=== PATIENT | female | born 1980 | race Two or more races ===

== ENCOUNTER 2022-07-21 15:03 | Outpatient (REF) | payer OTHER, SELFPAY ==
[2022-07-21 17:14] LABS: Free T4 (Free Thyroxine) 0.88 ng/dL (0.71-1.85); Thyroid Stimulating Hormone 1.28 uIU/mL (0.32-4.0)
[2022-07-23 09:43] LABS: Thyroid Peroxidase Antibodies 177 IU/mL (<9)
== END 2022-07-21 15:04 | disposition home or self-care (01) ==
LOC: HO.LAB 15:03
PROVIDERS: PCP Nurse Practitioner Family; Visit Provider Internal Medicine Endocrinology, Diabetes & Metabolism
DX: E03.9 Hypothyroidism, unspecified (principal)
CPT/HCPCS: 36415; 84439; 84443; 86376; 99202

== ENCOUNTER 2024-05-22 13:47 | Inpatient (IN) | payer OTHER, SELFPAY ==
[2024-05-22] VITALS (8 sets, daily range): BP systolic 85–106; BP diastolic 53–67; PULSE 74–87; RESP 13–20; TEMP 36.8; O2SAT 96–98; BMI 33.6
--- NOTE | ~2024-05-22 | CT_ITS ---
EXAMINATION: CT ABDOMEN AND PELVIS WITHOUT CONTRAST CLINICAL INFORMATION: Probable Acute cholecystitis. Metastatic breast cancer. COMPARISON: No prior CT. Correlated to limited ultrasound abdomen dated May 22, 2024. TECHNIQUE: Multidetector volumetric imaging was performed from the superior aspect of the liver through the pubic symphysis. Sagittal and coronal reformatted images were obtained on the technologist's workstation. This CT examination was performed using dose optimization techniques as appropriate, variously including the following: *Automated exposure control *Adjustment of mA and/or kV according to patient size (this includes techniques or standardized protocols for targeted exams where dose is matched to indication/reason for exam; i.e. extremities or head) *Use of iterative reconstruction technique DLP: 844 mGy centimeter. FINDINGS: Inadequate evaluation of the intra-abdominal organs and vascular structures due to lack of IV contrast. LUNG BASES: Multifocal patchy and confluent pulmonary groundglass, lobes, lingula and right middle lobe. Right-sided physician, small to moderate volume. Left-sided pleural effusion, small amount. There is a central venous catheter in the right atrium. LIVER, GALLBLADDER, AND BILIARY TREE: Liver measures 21 cm. Heterogeneous attenuation of the parenchyma. The gallbladder is packed with gallstones. There is 9 mm edematous gallbladder wall. The common bile duct measures 4 mm. PANCREAS: No peripancreatic fluid collection. No main pancreatic ductal dilatation. SPLEEN: 12 cm. ADRENAL GLANDS: No nodular lesions. KIDNEYS AND URETERS: No hydronephrosis. No gross nephrolithiasis. Probable residual contrast within the urinary collecting system. BLADDER: Residual contrast. GASTROINTESTINAL TRACT: Gas and fluid-filled small and large intestine. Segmental narrowing at the rectosigmoid colon, probable peristalsis. Mesenteric and pericolonic edema pattern. No intestinal obstruction pattern. No gross fluid collections, peritoneal cavity. No gross ascites. No pneumoperitoneum. No pneumatosis intestinalis. I do not see the appendix. ABDOMINAL WALL: Diastases abdominal rectus muscles. LYMPH NODES: Nonspecific prominent mesenteric and retroperitoneal lymph nodes. VASCULAR: Calcified plaques distal abdominal aorta wall and the iliac arteries without gross aneurysm. PELVIC VISCERA: Not evaluated. OSSEOUS STRUCTURES: No gross lytic or blastic lesions. No acute fracture or gross listhesis. Multilevel thoracolumbar spondylosis more conspicuous at L4-5 and L5-S1. CT/CT abdomen pelvis wo IV con IMPRESSION: Concerning multifocal pneumonia with a small volume pleural effusions. Edematous gallbladder wall with cholelithiasis. Acute cholecystitis versus hepatitis versus prolonged fasting should be included in differential diagnosis. Hepatosplenomegaly. Fleischner guidelines were followed. Electronically signed by: Mikhail Ramirez MD 05/23/2024 12:01 PM EST
--- NOTE | ~2024-05-22 | CT_ITS ---
CLINICAL HISTORY: Right anterior lateral chest pain, history of CA CT angiography chest with contrast. 3D Postprocessing. Comparison: None Findings: The heart size is normal. RV/LV ratio is normal. The thoracic aorta is normal caliber. No dissection. No acute pulmonary embolus. Multiple small and likely reactive mediastinal and bilateral hilar lymph nodes. Right renée catheter tip is in the SVC. The visualized thyroid gland appears small. There are bilateral mastectomy changes. There are postsurgical changes in the right retropectoral and axillary regions. There are consolidative changes with air bronchograms in the right upper lobe. There are patchy consolidative changes in the right middle and bilateral lower lobes. No pleural effusion or pneumothorax. Hepatic steatosis. Probable hepatosplenomegaly. Cholelithiasis. The bones are intact. IMPRESSION: 1. No pulmonary embolus. 2. Multifocal bilateral pneumonia, right greater than left. 3. Mediastinal and hilar adenopathy. 4. Cholelithiasis. 5. Additional findings as above. This document has been electronically signed by: Yasmine Marques DO on 05/22/2024 18:41:54
--- NOTE | ~2024-05-22 | US_ITS ---
CLINICAL HISTORY: RUQ pain, TTP, nausea US abdomen limited Comparison: None Findings: The visualized pancreas is normal. Unremarkable visualized IVC. Liver length 16.5 cm. Echogenic liver parenchyma. There is no intrahepatic bile duct dilatation. Common bile duct diameter 7 mm The gallbladder is filled with gallstones. The gallbladder wall is thickened and measures up to 8 mm in thickness. The sonographic Rosenberg's sign was negative. The main portal vein is antegrade. The right kidney is 11.2 cm in length. No ascites. IMPRESSION: 1. Cholelithiasis with marked thickening of the gallbladder wall suggesting possible acute cholecystitis. 2. Fatty infiltration of the liver. 3. Mildly dilated common bile duct. This document has been electronically signed by: Li Finley MD on 05/22/2024 20:23:08
--- NOTE | 2024-05-22 13:53 | ECG_ITS ---
Test Reason : chest pain Blood Pressure : */* mmHG Vent. Rate : 87 BPM Atrial Rate : 87 BPM P-R Int : 166 ms QRS Dur : 90 ms QT Int : 310 ms P-R-T Axes : 22 23 27 degrees QTcB Int : 373 ms Normal sinus rhythm Nonspecific T wave abnormality Abnormal ECG No previous ECGs available Referred By: Generic ED Physician Electronically Signed By: JESUS KESSLER
--- NOTE | 2024-05-22 15:18 | ED_ITS ---
HPI - Chest Pain General Chief Complaint: Chest Pain Stated Complaint: Chest Pain, Abd Pain Time Seen by Provider: 05/22/24 16:03 Source: patient Mode of arrival: ambulatory Limitations: no limitations and language barrier (Slovenian-speaking transition assistant utilized) History of Present Illness ED Provider: Hortencia Mccarty NP HPI narrative: Patient is a 44 year old female with past medical history of breast cancer s/p bilateral mastectomy in October of 2021 and radiation, currently on chemotherapy following with [facility] Oncology Dr. Rodney with metastasis to the lung, spleen, and abdominal lymph nodes, hypothyroidism, GERD who presents emergency department for evaluation. She endorses a multitude of symptoms over the past 2 days which by her account are consistent with when her magnesium and potassium are low secondary to her chemotherapy. She endorses having pain diffusely throughout her abdomen, right lateral chest, right anterior chest, diarrhea, intermittent dizziness, nausea, dizziness, and fatigue. She again states that all of the symptoms happen when these electrolytes are low. Although she does note that the pain in her abdomen is notably worse in the right upper quadrant at this current moment but in general has been constant over the past month. She reports her most recent testing through oncology was an echocardiogram 05/15/2024. She denies diaphoresis, vomiting, shortness of breath, dyspnea on exertion, history of VTE, lower extremity swelling, headache, neck pain, vision changes Related Data Home Medications ?Medication ?Instructions ?Recorded ?Confirmed amitriptyline 25 mg tablet 25 mg PO 07/15/22 famotidine 20 mg tablet 20 mg PO BID 07/15/22 pregabalin 25 mg capsule 25 mg PO DAILY 07/15/22 cetirizine 10 mg tablet 10 mg PO DAILY 07/21/22 ibuprofen 600 mg tablet 600 mg PO Q8H 07/21/22 oxycodone 30 mg tablet,crush 60 mg PO Q8H 05/22/24 05/22/24 resistant,extended release 12 hr (OxyContin) oxycodone-acetaminophen 7.5 mg-325 2 tab PO Q4H PRN pain 05/22/24 05/22/24 mg tablet Allergies Allergy/AdvReac Type Severity Reaction Status Date / Time No Known Allergies Allergy Verified 05/22/24 15:13 Review of Systems 2 Review of Systems: Yes all other systems are reviewed and are negative PMFSH Past Medical History Attestation statement: The following information was validated with the patient. Source: old records reviewed Medical History Obstructive sleep apnea Metastatic malignant neoplasm to breast Hypothyroidism Surgical History Hx of bilateral mastectomy Hx of appendectomy Hx of hernia repair Family History Family History Mother Diabetes Hypertension Father Cancer Social History Social History Household Members: Family Alcohol intake: former Patient Tobacco Use Status: Former Tobacco user Smoked in Last 30 Days: No Use of substances other than those prescribed or required for medical reasons: No Advance Directives: No Advance Directives Information Provided: No Do you have a plan to hurt others: No Plan Physical Exam 2 Vital Signs: Vital Signs: Last Vital Signs Temp 98.2 F 05/22/24 21:01 Pulse 80 05/22/24 23:01 Resp 13 05/22/24 22:28 BP 96/61 05/22/24 23:01 Pulse Ox 98 05/22/24 22:28 O2 Del Method Room Air 05/22/24 22:28 BMI result Body Mass Index 33.6 Appearance: Alert.?Oriented to person, place and time. No acute distress.?Normal affect. Eyes: Pupils equal, round and reactive to light.? ENT: Pharynx normal.?? Neck: Normal inspection.? Neck supple.??No JVD. CVS: Heart sounds normal. Normal heart rate and rhythm.? Pulses normal.?? Respiratory: No respiratory distress.? Lung sounds clear to auscultation bilaterally?? Abdomen: Soft with diffuse tenderness throughout, notably tender in the right upper quadrant, positive murphys sign. Normoactive bowel sounds. No pulsatile mass.?? Skin: Skin warm and dry.? Normal skin color.? ?? Extremities: No lower extremity edema.? No calf ttp? Neuro: Moves all extremities spontaneously. Sensation intact bilaterally. CN II- XII intact. No focal neuro deficits. Ambulates with normal steady gait. Course Course Course Narrative: This is an RME: Additional HPI, ROS, PE not included below will be deferred to primary provider. RME assessment and note performed by: Hien Leo PA-C This is a 44-year-old female who presents emergency department with complaints of chest pain, lower abdominal pain since 02:30 this morning, also reporting dizziness and lightheadedness. Patient has a history of breast cancer with Mets to the lungs, stomach, reports low potassium. Blood pressure low at 97/65. Plan: Labs, EKG Reevaluation(s) Reevaluation #1: CT of the chest reveals no evidence of pulmonary embolism, has multifocal bilateral pneumonia right greater left with adenopathy in addition to cholelithiasis, will obtain ultrasound to evaluate for cholecystitis. Patient will receive Rocephin IV, obtaining blood cultures and lactic acid, her blood pressures are soft currently 96/59 with map of 71, no tachycardia, afebrile, no tachypnea or hypoxia. Pancytopenia with no baseline for comparison, WBC 4000, meets SIRS criteria but at this time without evidence of organ dysfunction to suggest severe sepsis. IV fluids ordered based on ideal body weight do to obesity Time: 19:08 Reevaluation #2: Abdominal ultrasound revealing findings consistent with acute cholecystitis, at this time I have noted most recent blood pressure of 85/57 on evaluation patient did have a large blood pressure cuff though placed on the arm, when repositioned with the appropriate sized cuff BP is 91/59. On review of previous records she does appear to have a generally low blood pressure. Will give an additional L of fluids, if persistently hypotensive will consider pressors. Anticipate admission for multifocal bilateral pneumonia and acute cholecystitis. Time: 22:09 Medications Administered Generic Name Dose Route Start Last Admin Trade Name Freq PRN Reason Stop Dose Admin Piperacillin Sod/Tazobactam 100 mls @ 200 mls/hr 05/22/24 22:15 05/22/24 23:25 Sod 4.5 gm/ Sodium Chloride IV Infused Q6H LENY Infusion Sodium Chloride 3 ml 05/23/24 00:00 05/23/24 00:36 0.9 % Sodium Chloride Flush 3 Ml Syringe IVFLUSH Not Given QSHIFT LENY Discontinued Medications Generic Name Dose Route Start Last Admin Trade Name Freq PRN Reason Stop Dose Admin Ceftriaxone Sodium 2 gm 05/22/24 19:02 05/22/24 19:41 Ceftriaxone Sodium 2 Gm Vial IVPUSH 05/22/24 19:03 2 gm ONCE ONE Administration Sodium Chloride 1,710 mls @ 1,710 mls/hr 05/22/24 19:02 05/22/24 22:25 Ns IV 05/22/24 20:01 Infused .Q1H STA Infusion Sodium Chloride 1,000 mls @ 999 mls/hr 05/22/24 22:15 05/23/24 00:36 Ns IV 05/22/24 23:15 Infused .Q1H1M LENY Infusion Iohexol 100 ml 05/22/24 17:59 05/22/24 18:02 Iohexol 350 Mg/Ml 100 Ml Infus..Btl IV 05/22/24 18:00 65 ml ONCE ONE Administration Oxycodone HCl 30 mg 05/22/24 20:13 05/22/24 20:51 Oxycodone Hcl Er 10 Mg Tab.Er.12h PO 05/22/24 20:14 30 mg ONCE ONE Administration Oxycodone HCl 7.5 mg 05/22/24 20:13 05/22/24 20:51 Oxycodone Hcl Immed Release 5 Mg Tablet PO 05/22/24 20:14 7.5 mg ONCE ONE Administration Medical Decision Making Medical Decision Making MDM Narrative: Patient is a 44 year old female with past medical history of breast cancer s/p bilateral mastectomy in October of 2021 and radiation, currently on chemotherapy following with [facility] Oncology Dr. Rodney with metastasis to the lung, spleen, and abdominal lymph nodes, hypothyroidism, GERD who presents emergency department for evaluation of chest and abdominal pain constant over the past month though she does admit that they right upper quadrant is worse over the past 2 days, diarrhea, dizziness, nausea, fatigue which by her account was consistent with low magnesium and low potassium which she has been advised to secondary to her chemotherapy. She denies otherwise having any new symptoms. EKG obtained prior to my assumption of care revealing a normal sinus rhythm with ventricular rate of 87, QTC 373, no ST elevation, no ST depression. No evidence of volume overload or shock on exam. No recent trauma or injury, no tracheal deviation, unlikely tension pneumothorax. No recent URI symptoms to suggest viral illness, pneumonia, costochondritis. She does have right upper quadrant tenderness and positive Rosenberg sign, concerning for possibly acute cholecystitis, choledocholithiasis, no fever or jaundice to suggest acute cholangitis, may possibly be biliary colic secondary to cholelithiasis. Denies excessive alcohol consumption, history of diabetes, lower suspicion acute pancreatitis. Will obtain CBC to evaluate for leukocytosis/ anemia, CMP and lipase to evaluate for abnormal electrolytes /abnormal renal function/ abnormal hepatic/biliary function, EKG and troponin to evaluate for ischemia/ACS. Obtaining CT angio of the chest to exclude pulmonary embolism. Differential Diagnosis Differential Diagnoses: The differential diagnosis associated with the presentation includes (See narrative above) Admission/Observation Consideration of admission/observation: Escalation of care including admission/observation considered (See narrative above and course narrative for further detail) Lab Data MDM Lab Attestation statement: I reviewed the patient's lab results. 05/22/24 16:21 05/22/24 16:21 Labs: Lab Results 05/22/24 05/22/24 Range/Units 16:21 19:28 WBC 4.0 L (4.8-10.8) X10*3/uL RBC 2.92 L (4.20-5.50) X10*6/uL Hgb 10.5 L (12.0-16.0) g/dl Hct 28.9 L (37.0-47.0) % MCV 99.0 H (80.0-98.0) fL MCH 36.0 H (27.0-33.0) pg MCHC 36.3 H (31.0-35.0) g/dl RDW 15.8 (11.0-16.0) % Plt Count 117 L (160-400) X10*3/uL MPV 10.6 (9.4-12.3) fL Immature Gran % (Auto) 0.3 (0.0-0.4) % Neut % (Auto) 64.7 (45-73) % Lymph % (Auto) 21.4 (20-40) % Gilliam % (Auto) 9.6 (2-11) % Eos % (Auto) 3.0 (0-4) % Baso % (Auto) 1.0 (0-2) % Lymph # (Auto) 0.9 L (1.2-4.9) X10*3/uL Gilliam # (Auto) 0.4 (0.1-1.2) X10*3/uL Eos # (Auto) 0.1 (0.0-0.4) X10*3/uL Baso # (Auto) 0.0 (0.0-0.2) X10*3/uL Abs Immat Gran (auto) 0.01 (0.00-0.03) X10*3/uL Absolute Neuts (auto) 2.6 (2.0-8.3) x10*3/uL Absolute Nucleated RBC 0.020 H (0.0-0.012) X10*3/uL Nucleated RBC % (auto) 0.5 H (0.0-0.2) /100WBC PT 11.7 (10.9-12.4) SEC INR 1.0 (0.9-1.1) Sodium 136 (135-145) mmol/L Potassium 3.3 (3.3-5.1) mmol/L Chloride 105 (96-108) mmol/L Carbon Dioxide 22 (22-29) mmol/L Anion Gap 12 (12-20) BUN 10 (9-16) mg/dL Creatinine 0.74 (0.5-1.4) mg/dL Estim Creat Clear Calc 108.4 Estimated GFR > 60 Random Glucose 101 (60-115) mg/dL Lactic Acid 1.1 (0.5-2.0) mmol/L Calcium 8.8 (8.4-10.2) mg/dL Magnesium 1.7 (1.6-2.6) mg/dL Total Bilirubin 0.5 (0.0-1.0) mg/dL Direct Bilirubin 0.2 (0.0-0.5) mg/dL AST 43 H (5-31) U/L ALT 23 (0-31) U/L Alkaline Phosphatase 105 (39-117) U/L Troponin I High Sens < 2.7 (<3.5-17.0) ng/L Total Protein 7.8 (6.5-8.0) g/dL Albumin 3.7 (3.5-5.0) g/dL Lipase 31 (8-78) U/L Influenza Type A (PCR) NEGATIVE (Negative) Influenza Type B (PCR) NEGATIVE (Negative) RSV RNA Qual (PCR) NEGATIVE (Negative) SARS-CoV-2 RNA (RT-PCR) NEGATIVE (Negative) Independent Interpretation I performed an independent interpretation of an: EKG (See narrative above) Radiology Impression Discussion of test interpretation with radiology: I have reviewed the radiologist's reading. Radiologist Impression: CT angiography chest with contrast. 3D Postprocessing. Comparison: None Findings: The heart size is normal. RV/LV ratio is normal. The thoracic aorta is normal caliber. No dissection. No acute pulmonary embolus. Multiple small and likely reactive mediastinal and bilateral hilar lymph nodes. Right renée catheter tip is in the SVC. The visualized thyroid gland appears small. There are bilateral mastectomy changes. There are postsurgical changes in the right retropectoral and axillary regions. There are consolidative changes with air bronchograms in the right upper lobe. There are patchy consolidative changes in the right middle and bilateral lower lobes. No pleural effusion or pneumothorax. Hepatic steatosis. Probable hepatosplenomegaly. Cholelithiasis. The bones are intact. IMPRESSION: 1. No pulmonary embolus. 2. Multifocal bilateral pneumonia, right greater than left. 3. Mediastinal and hilar adenopathy. 4. Cholelithiasis. 5. Additional findings as above. Independent Historian Clinical information obtained from an independent historian. History obtained from or confirmed by: Spouse Discharge Plan Discharge Clinical Impression: Acute calculous cholecystitis, Multifocal pneumonia, Metastatic malignant neoplasm to breast Patient Disposition: Admitted As Inpatient
[2024-05-22 16:27] LABS: MANUAL DIFF FLAG NO
[2024-05-22 16:34] LABS: Eosinophils Absolute Auto 0.1 X10*3/uL (0.0-0.4); Hematocrit 28.9 % (37.0-47.0); Hemoglobin 10.5 g/dl (12.0-16.0); Imm Gran Abs Auto 0.01 X10*3/uL (0.00-0.03); Imm Gran Pct Auto 0.3 % (0.0-0.4); Lymphocytes Absolute Auto 0.9 X10*3/uL (1.2-4.9); Lymphocytes Percent Auto 21.4 % (20-40); Mean Corpuscular HGB Conc 36.3 g/dl (31.0-35.0); Mean Platelet Volume 10.6 fL (9.4-12.3); Monocytes Absolute Auto 0.4 X10*3/uL (0.1-1.2); Monocytes Percent Auto 9.6 % (2-11); NRBC Pct Auto 0.5 /100WBC (0.0-0.2); Neutrophils Absolute Auto 2.6 x10*3/uL (2.0-8.3); Neutrophils Percent Auto 64.7 % (45-73); Platelet Count 117 X10*3/uL (160-400); Red Blood Count 2.92 X10*6/uL (4.20-5.50); Red Cell Distribution Width 15.8 % (11.0-16.0)
[2024-05-22 16:40] LABS: Prothrombin Time 11.7 SEC (10.9-12.4)
--- OUTSIDE RECORDS SUMMARY | 2024-05-22 16:45 | XMS_ITS | Clinical Summary ---
Author Organization [employer] Address [address] [facility] [address] [place] [address] Care Team Providers Care Broadcast Journalist Name Role Phone Unavailable Primary Care Provider Unavailabl e Encounters Date Type Department Care Team Description 05/09/2024 Telephone [facility] [address] [place] [address] Jyoti Rojas DDS apppraneeth cancer patient from Last 3 Months Social History Tobacco Use Types Packs/Day Years Used Date Smoking Tobacco: Never Assessed Comments Unknown Sex and Gender Information Value Date Recorded Sex Assigned at Female 02/01/2022 10:28 AM EDT Legal Sex Female 10:28 AM EDT Gender Identity Not on file Sexual Orientation Not on file Plan of Treatment Health Maintenance Due Date Last Done Comments Depression Screening 1980 Alcohol/Substance Use Screening 1992 Tobacco Screening 1992 Family Planning (PISQ) 02/03/1995 DTaP/Tdap/Td Vaccines (1 - Tdap) 02/03/1999 Hepatitis B Vaccines (1 of 3 - 19+ 3-dose series) 02/03/1999 Pap Smear 02/03/2001 Cervical Cancer Screening 02/03/2010 HPV/Cotest 02/03/2010 Mammogram 2020 COVID-19 Vaccine (1 - 2023-2 5 season) 2023 Influenza Vaccine (#1) 2023 Zoster Vaccines (1 of 2) 02/03/2030 RSV Patients and Pa tients Aged 60 years or older (1 - 1-dose 75+ series) 02/03/2055 HIB Vaccines Aged Out No longer eligi ble based on patient's age to complete this topic HPV Vaccines Aged Out No longer eligi ble based on patient's age to complete this topic Hepatitis A Vaccines Aged Out No long er eligible based on patient's age to complete this topic IPV Vaccines Aged Out No longer eligi ble based on patient's age to complete this topic Meningococcal Vaccine Aged Out No tone jodi eligible based on patient's age to complete this topic Pneumococcal Vaccine: Pediat rics (0 to 5 Years) and At-Risk Patients (6 to 49) Years) Aged Out No longer eligible b ased on patient's age to complete this topic RSV under 20 months Aged Out No longe r eligible based on patient's age to complete this topic Rotavirus Vaccines Aged Out No longer eligible based on patient's age to complete this topic
--- OUTSIDE RECORDS SUMMARY | 2024-05-22 16:45 | XMS_ITS | Clinical Summary ---
Author Organization [facility], Address [address] [place] [address] Phone Care Team Providers Care Fill Plant Operator Name Role Phone Theron Richard DEVELOPMENT TEAM LEAD Primary Care Provider [phone] Allergies No known active allergies Medications acetaminophen (TYLENOL) 500 MG tablet Take by mouth every 6 (six) hours if needed for mild pain Active famotidine (PEPCID) 20 MG tablet Take 20 mg by mouth in the morning and 20 mg in the evening. Active fexofenadine (KAHLIL) 60 MG tablet Take 60 mg by mouth 1 (one) time each day Active gabapentin (NEURONTIN) 300 MG capsule Take 300 mg by mouth in the morning and 300 mg in the evening and 300 mg before bedtime. Active ibuprofen (ADVIL,MOTRIN) 600 MG tablet Take 600 mg by mouth every 6 (six) hours if needed for mild pain Active QUEtiapine (SEROquel) 25 MG tablet Take 25 mg by mouth every night Active oxyCODONE-aceta minophen (PERCOCET) 7.5-325 MG per tablet 07/05/2023 Active hydroCHLOROthia zide 25 MG tablet TAKE 1 TABLET BY MOUTH EVERY DAY NEEDED FOR ANXIETY OR PANIC 05/21/2023 Active hydrOXYzine (ATARAX) 25 MG tablet TAKE 1 TABLET BY MOUTH THREE TIMES DAILY NEEDED FOR ANXIETY OR PANIC 05/21/2023 Active Active Problems Problem Noted Date Diagnosed Date Malignant tumor of breast 07/06/2023 Binge eating disorder 07/06/2023 Depressive disorder 07/06/2023 Fibromyalgia 07/06/2023 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 Hyperlipidemia 07/06/2023 Obese class I 07/06/2023 Osteoporosis 07/06/2023 Sleep apnea 07/06/2023 Social History Tobacco Use Types Packs/Day Years Used Date Smoking Tobacco: Former Cigarettes Tobacco Cessation:Counseling Given: Not Answered Alcohol Use Standard Drinks/Week Comments Not Currently 0 (1 standard drink = 0.6 oz pur e alcohol) Comments Unknown Sex and Gender Information Value Date Recorded Sex Assigned at Not on file Legal Sex Female 11:55 AM EDT Gender Identity Not on file Sexual Orientation Not on file Last Filed Vital Signs Vital Sign Reading Time Taken Comments Blood Pressure 134/85 07/12/2023 10:44 AM EDT Pulse 74 07/12/2023 10:44 AM EDT Temperature 36.6 ??C (97.8 ??F) 07/12/2023 10:44 AM E DT Respiratory Rate 16 07/12/2023 10:44 AM EDT Oxygen Saturation 96% 07/12/2023 10:44 AM EDT Inhaled Oxygen Concentration - - Weight 91.6 kg (202 lb) 07/12/2023 10:44 AM EDT Height 167.6 cm (5' 6 ) 07/12/2023 10:44 AM EDT Body Mass Index 32.6 07/12/2023 10:44 AM EDT Plan of Treatment Health Maintenance Due Date Last Done Comments Pneumococcal Vaccine: Pediat rics (0 to 5 Years) and At-Risk Patients (6 to 64 Years) (1 of 2 - PCV) 02/03/1986 Hepatitis B Vaccine (1 of 3 - 19+ 3-dose series) 02/03 Influenza Vaccine (#1) 2023 Insurance [facility] MEDICAID Care Teams Fill Plant Operator Relationship Specialty Start Date End Date Theron Richard NP [address] [place], [place] PCP - General Nurse Practitioner 07/12/23
--- OUTSIDE RECORDS SUMMARY | 2024-05-22 16:45 | XMS_ITS | Encounter Summary ---
Author Organization [facility], Address [address] [place] [address] Phone Care Team Providers Care Pattern Marker Name Role Phone Theron Richard NP Primary Care Provider [phone] Encounter Details Date Type Department Care Team (Late st Contact Info) Description 07/19/2023 Documentation Only [facility] - [facility] [address] [place] [address] [place] [phone] Liane Luis [address] [place] [phone] Social History Tobacco Use Types Packs/Day Years Used Date Smoking Tobacco: Former Cigarettes Alcohol Use Standard Drinks/Week Comments Not Currently 0 (1 standard drink = 0.6 oz pur e alcohol) Comments Unknown Sex and Gender Information Value Date Recorded Sex Assigned at Not on file Legal Sex Female 11:55 AM EDT Gender Identity Not on file Sexual Orientation Not on file documented as of this encounter Plan of Treatment Not on file documented as of this encounter Visit Diagnoses Not on filedocumented in this encounter Care Teams Pattern Marker Relationship Specialty Start Date End Date Theron Richard NP [address] [place] [address] PCP - General Nurse Practitioner 07/12/23 documented as of this encounter
--- OUTSIDE RECORDS SUMMARY | 2024-05-22 16:45 | XMS_ITS | Encounter Summary ---
Author Organization [employer] [facility] Address [address] [facility] [address] [place] [address] Care Team Providers Care Informatics Nurse Name Role Phone Unavailable Primary Care Provider Unavailabl e Encounter Details Date Type Department Care Team (Latest Contact Info) Description 12/26/2018 Abstract C CONVERSIONS Dental, Provider, DDS Social History Tobacco Use Types Packs/Day Years [...]
--- OUTSIDE RECORDS SUMMARY | 2024-05-22 16:45 | XMS_ITS | Encounter Summary ---
Author Organization [employer] [facility] Address [address] [facility] [address] [place] [address] Care Team Providers Care Director Of Golf Name Role Phone Unavailable Primary Care Provider Unavailabl e Reason for Visit * Reason Onset Date Comments appt cancer patient 05/09/2024 Encounter Details Date Type Department Care Team (Late st Contact Info) Description 05/09/2024 Telephone [facility] [address] [place], [place] [phone] Jyoti Rojas DDS [address], [place] [phone] appt cancer patient Social History Tobacco Use Types Packs/Day Years Used Date Smoking Tobacco: Never Assessed Comments Unknown Sex and Gender Information Value Date Recorded Sex Assigned at Female 02/01/2022 10:28 AM EDT Legal Sex Female 10:28 AM EDT Gender Identity Not on file Sexual Orientation Not on file documented as of this encounter Miscellaneous Notes * Telephone Encounter - Selene Mandujano - 05/09/2024 12:03 PM EST Patient has not been seen since 2019. She is a cancer patient and is experiencing bleeding but no pain or swelling. She would like to be seen. Appt requested for new appt. documented in this encounter Plan of Treatment Not on file documented as of this encounter Visit Diagnoses Not on filedocumented in this encounter
[2024-05-22 16:50] LABS: Alanine Aminotransferase 23 U/L (0-31); Albumin Level 3.7 g/dL (3.5-5.0); Alkaline Phosphatase 105 U/L (39-117); Anion Gap 12 (12-20); Aspartate Amino Transferase 43 U/L (5-31); Bilirubin Direct 0.2 mg/dL (0.0-0.5); Bilirubin Total 0.5 mg/dL (0.0-1.0); Blood Urea Nitrogen 10 mg/dL (9-16); Calcium 8.8 mg/dL (8.4-10.2); Carbon Dioxide 22 mmol/L (22-29); Chloride 105 mmol/L (96-108); Creatinine Clr Calc Pharmacy 108.4; Estimated Glomerular Filt Rate > 60; Glucose Random 101 mg/dL (60-115); Lipase 31 U/L (8-78); Magnesium 1.7 mg/dL (1.6-2.6); Potassium 3.3 mmol/L (3.3-5.1); Sodium 136 mmol/L (135-145); Total Protein 7.8 g/dL (6.5-8.0)
[2024-05-22 16:56] LABS: Troponin-I High Sensitivity < 2.7 ng/L (<3.5-17.0)
[2024-05-22 17:13] LABS: Influenza A PCR NEGATIVE (Negative); Influenza B PCR NEGATIVE (Negative); Resp Syncy Virus RNA Qual PCR NEGATIVE (Negative); SARS COV2 PCR INHOUSE NEGATIVE (Negative)
[2024-05-22] MEDS: iohexoL 350 MG/ML 100 ML INFUS..BTL IV (18:02)
[2024-05-22] MEDS: cefTRIAXone sodium 2 GM VIAL IVPUSH (19:41)
[2024-05-22 19:48] LABS: Lactic Acid 1.1 mmol/L (0.5-2.0)
[2024-05-22] MEDS: oxyCODONE HCl Immed Release 5 MG TABLET 7.5 MG PO (20:51)
[2024-05-22] MEDS: oxyCODONE HCl ER 10 MG TAB.ER.12H 30 MG PO (20:51)
[2024-05-22] MEDS: 0.9 % Sodium Chloride 1,000 ML 999 ML IV (22:27)
[2024-05-22] MEDS: Piperacillin Sodium/Tazobactam 4.5 GM in 0.9 % Sodium Chloride 100 ML IV (22:27)
--- NOTE | 2024-05-22 22:53 | PM.IMHP ---
History of Present Illness Date of Service: 05/22/24 Chief Complaint: Abdominal pain This is a 44-year-old female with pertinent history of breast cancer status with mets to the lung, spleen and abdominal lymph nodes status post bilateral mastectomy and radiation, currently on chemotherapy, JR on CPAP, hypothyroidism who presents to the emergency department for evaluation of abdominal pain. History obtained with the help of ear nose throat surgeon. Patient states she has been having right upper quadrant pain that has been ongoing for a while. It has been progressive, constant, nonradiating and without any relieving factors. Has associated nausea due to it. Initially patient thought it was due to underlying cancer and chemotherapy. Admits loose stools. No cough or shortness of breath. Her last chemotherapy was earlier this month. No fever, chills, chest pain, palpitations, changes in urinary habits. In the emergency department, imaging with cholelithiasis and thickening of the gallbladder wall suggesting acute cholecystitis. Review of Systems Constitutional: Constitutional: Reports fatigue, Reports lethargy, Reports malaise, Reports poor appetite and Reports weakness Cardiovascular: Cardiovascular: Reports no additional cardiovascular complaints Respiratory: Respiratory: Reports no additional respiratory complaints Gastrointestinal: Gastrointestinal: Reports abdominal pain and Reports nausea Genitourinary: Genitourinary: Reports no additional female genitourinary complaints Neurologic: Reports weakness Endocrine: Endocrine: Reports fatigue PMFSH Medical History Obstructive sleep apnea Metastatic malignant neoplasm to breast Hypothyroidism Family History Mother Diabetes Hypertension Father Cancer Surgical History Hx of bilateral mastectomy Hx of appendectomy Hx of hernia repair Social History Household Members: Family Alcohol intake: former Patient Tobacco Use Status: Former Tobacco user Smoked in Last 30 Days: No Use of substances other than those prescribed or required for medical reasons: No Advance Directives: No Advance Directives Information Provided: No Do you have a plan to hurt others: No Plan Meds Allergies Allergy/AdvReac Type Severity Reaction Status Date / Time No Known Allergies Allergy Verified 05/22/24 15:13 Active Medications: Current Medications Acetaminophen (Acetaminophen 325 Mg Tablet) 650 mg PO Q6H PRN PRN Reason: Pain, Mild 1-3,fever,headache Calcium Carbonate (Calcium Carbonate 750 Mg Tab.Chew) 750 mg PO Q4H PRN PRN Reason: Heartburn Sodium Chloride (Ns) 1,000 mls @ 999 mls/hr IV .Q1H1M [facility] Stop: 05/22/24 23:15 Last Admin: 05/22/24 22:27 Dose: 999 mls/hr Piperacillin Sod/Tazobactam (Sod 4.5 gm/ Sodium Chloride) 100 mls @ 200 mls/hr IV Q6H [facility] Last Admin: 05/22/24 22:27 Dose: 200 mls/hr Magnesium Hydroxide (Milk Of Magnesia 30 Ml Oral.Susp) 30 ml PO DAILY PRN PRN Reason: Constipation Melatonin (Melatonin 3 Mg Tablet) 6 mg PO BEDTIME PRN PRN Reason: Insomnia Morphine Sulfate (Morphine Sulfate 4 Mg/Ml Cartridge) 4 mg IVPUSH Q4H PRN; Protocol PRN Reason: Pain, Severe (Pain Scale 7-10) Ondansetron HCl (Ondansetron Hcl 4 Mg/2 Ml Vial) 4 mg IVPUSH Q8H PRN PRN Reason: Nausea and Vomiting Sodium Chloride (0.9 % Sodium Chloride Flush 3 Ml Syringe) 3 ml IVFLUSH QSHIFT [facility] Home Medications ?Medication ?Instructions ?Recorded ?Confirmed ?Last Taken ?Type amitriptyline 25 mg tablet 25 mg PO 07/15/22 Unknown History famotidine 20 mg tablet 20 mg PO BID 07/15/22 Unknown History pregabalin 25 mg capsule 25 mg PO DAILY 07/15/22 Unknown History cetirizine 10 mg tablet 10 mg PO DAILY 07/21/22 Unknown History ibuprofen 600 mg tablet 600 mg PO Q8H 07/21/22 Unknown History Physical Exam Vital Signs and Narrative: Vital Signs: Last Vital Signs Temp 98.2 F 05/22/24 21:01 Pulse 80 05/22/24 22:28 Resp 13 05/22/24 22:28 BP 92/53 L 05/22/24 22:28 Pulse Ox 98 05/22/24 22:28 O2 Del Method Room Air 05/22/24 22:28 BMI result Body Mass Index 33.6 Middle-aged female lying in bed in no distress Neck supple, no JVD Regular rate and rhythm, S1-S2 heard Regular breath sounds bilaterally, no wheezing or crackles appreciated Right upper quadrant tenderness present Patient is awake, alert and oriented to self, place, time and person ; no focal motor deficit Psych: Normal mood No pedal edema Results Labs 05/22/24 16:21 05/22/24 16:21 Labs: Laboratory Results - last 24 hr 05/22/24 05/22/24 16:21 19:28 MCV 99.0 H MCH 36.0 H MCHC 36.3 H RDW 15.8 Plt Count 117 L MPV 10.6 Immature Gran % (Auto) 0.3 Neut % (Auto) 64.7 Lymph % (Auto) 21.4 [place] % (Auto) 9.6 Eos % (Auto) 3.0 Baso % (Auto) 1.0 Lymph # (Auto) 0.9 L [place] # (Auto) 0.4 Eos # (Auto) 0.1 Baso # (Auto) 0.0 Abs Immat Gran (auto) 0.01 Absolute Neuts (auto) 2.6 Absolute Nucleated RBC 0.020 H Nucleated RBC % (auto) 0.5 H PT 11.7 INR 1.0 Anion Gap 12 Estim Creat Clear Calc 108.4 Estimated GFR > 60 Random Glucose 101 Lactic Acid 1.1 Calcium 8.8 Magnesium 1.7 Total Bilirubin 0.5 Direct Bilirubin 0.2 AST 43 H ALT 23 Alkaline Phosphatase 105 Total Protein 7.8 Albumin 3.7 Lipase 31 Influenza Type A (PCR) NEGATIVE Influenza Type B (PCR) NEGATIVE RSV RNA Qual (PCR) NEGATIVE SARS-CoV-2 RNA (RT-PCR) NEGATIVE Assessment and Plan (1) Acute calculous cholecystitis: Status: Acute Plan This is a 44-year-old female with pertinent history of breast cancer status with mets to the lung, spleen and abdominal lymph nodes status post bilateral mastectomy and radiation, currently on chemotherapy, JR on CPAP, hypothyroidism who presents to the emergency department for evaluation of abdominal pain. #. Acute calculous cholecystitis: Will admit patient with IV Zosyn. Mildly dilated CBD but alk-phos, liver enzymes and bilirubin within normal limits. Consulted General surgery, appreciate assistance #. Imaging with bilateral pneumonia: Patient without cough or shortness of breath. Maintaining normal saturation on room air. On antibiotics as above #. JR: Continue CPAP at bedtime #. Hypothyroidism: On Synthroid #. Pancytopenia in the setting of chemotherapy Med rec pending DVT prophylaxis: SCDs Full code. Discussed with patient at bedside Admit as inpatient and will require two night minimum hospital stay for IV antibiotic (as above), which is not possible in a lesser acute setting. General surgery consult pending Quality Stroke Does the patient have a stroke diagnosis?: No VTE Prior VTE?: No VTE Risk Level:: Medical - moderate - high VTE Device Contraindication: N/A - Device Ordered VTE Drug Contraindication: Treatment Not Indicated
[2024-05-23] VITALS (7 sets, daily range): BP systolic 89–103; BP diastolic 48–59; PULSE 72–90; RESP 14–89; TEMP 36.4–37.2; O2SAT 93–98
[2024-05-23] MEDS: Piperacillin Sodium/Tazobactam 4.5 GM in 0.9 % Sodium Chloride 100 ML IV ×4 (03:39→22:02)
[2024-05-23 05:11] LABS: MANUAL DIFF FLAG NO
[2024-05-23 05:12] LABS: Basophils Percent Auto 1.4 % (0-2); Eosinophils Absolute Auto 0.1 X10*3/uL (0.0-0.4); Eosinophils Percent Auto 3.8 % (0-4); Hematocrit 25.7 % (37.0-47.0); Imm Gran Abs Auto 0.01 X10*3/uL (0.00-0.03); Imm Gran Pct Auto 0.3 % (0.0-0.4); Lymphocytes Absolute Auto 0.7 X10*3/uL (1.2-4.9); Lymphocytes Percent Auto 22.6 % (20-40); Mean Corpuscular Hemoglobin 35.3 pg (27.0-33.0); Mean Corpuscular Volume 100.8 fL (80.0-98.0); Mean Platelet Volume 10.3 fL (9.4-12.3); Monocytes Absolute Auto 0.4 X10*3/uL (0.1-1.2); Monocytes Percent Auto 12.2 % (2-11); Neutrophils Absolute Auto 1.7 x10*3/uL (2.0-8.3); Neutrophils Percent Auto 59.7 % (45-73); Red Blood Count 2.55 X10*6/uL (4.20-5.50); Red Cell Distribution Width 15.9 % (11.0-16.0); White Blood Count 2.9 X10*3/uL (4.8-10.8)
[2024-05-23 05:15] LABS: Platelet Count 98 X10*3/uL (160-400)
[2024-05-23 05:29] LABS: Anion Gap 10 (12-20); Blood Urea Nitrogen 9 mg/dL (9-16); Carbon Dioxide 21 mmol/L (22-29); Chloride 110 mmol/L (96-108); Estimated Glomerular Filt Rate > 60; Glucose Random 95 mg/dL (60-115); Potassium 3.2 mmol/L (3.3-5.1); Sodium 138 mmol/L (135-145)
[2024-05-23] MEDS: 0.9 % Sodium Chloride Flush 3 ML SYRINGE IVFLUSH ×2 (07:21→16:47)
[2024-05-23] MEDS: Potassium Chloride/H20 10 MEQ/100 ML PIGGYBACK 100 MEQ IV ×2 (08:26→09:34)
--- NOTE | 2024-05-23 08:49 | PHA.MEDREC ---
Pharmacy Consult ? Medication Reconciliation Pharmacy has completed the medication reconciliation.
--- NOTE | 2024-05-23 10:17 | PM.CNGS ---
History of Present Illness Consult details Consult date: 05/23/24 Requesting physician: Raj Morrow Narrative: 44-year-old female with PMH of metastatic breast cancer with mets to the lung, spleen and abdominal lymph nodes status post bilateral mastectomy and radiation, currently on chemotherapy ([facility] oncology), JR on CPAP, hypothyroidism who presented to the ED for evaluation of abdominal pain. History obtained with ranch [facility]. Patient reports RUQ pain that began about a month ago that was initially mild but has been progressive, constant, nonradiating. Pain is associated with nausea and diarrhea. Initially patient thought it was due to underlying cancer and chemotherapy. Her last chemotherapy was earlier this month. No fever, chills, chest pain, palpitations, changes in urinary habits. Workup in the ED cholelithiasis and thickening of the gallbladder wall suggesting acute cholecystitis, echogenic liver parenchyma. Pancytopenia on labs, liver enzymes with mildly elevated AST. Review of Systems Review of Systems: Yes all other systems are reviewed and are negative PMFSH Past Medical History Medical History Obstructive sleep apnea Metastatic malignant neoplasm to breast Hypothyroidism Family History Family History Mother Diabetes Hypertension Father Cancer Surgical History Surgical History Hx of bilateral mastectomy Hx of appendectomy Hx of hernia repair Social History Social History Household Members: Family Alcohol intake: former Patient Tobacco Use Status: Former Tobacco user Smoked in Last 30 Days: No Use of substances other than those prescribed or required for medical reasons: No Advance Directives: No Advance Directives Information Provided: No Do you have a plan to hurt others: No Plan Meds Allergies Allergy/AdvReac Type Severity Reaction Status Date / Time No Known Allergies Allergy Verified 05/22/24 15:13 Active Medications: Current Medications Acetaminophen (Acetaminophen 325 Mg Tablet) 650 mg PO Q6H PRN PRN Reason: Pain, Mild 1-3,fever,headache Calcium Carbonate (Calcium Carbonate 750 Mg Tab.Chew) 750 mg PO Q4H PRN PRN Reason: Heartburn Piperacillin Sod/Tazobactam (Sod 4.5 gm/ Sodium Chloride) 100 mls @ 200 mls/hr IV Q6H [facility] Last Admin: 05/23/24 09:38 Dose: 200 mls/hr Magnesium Hydroxide (Milk Of Magnesia 30 Ml Oral.Susp) 30 ml PO DAILY PRN PRN Reason: Constipation Melatonin (Melatonin 3 Mg Tablet) 6 mg PO BEDTIME PRN PRN Reason: Insomnia Morphine Sulfate (Morphine Sulfate 4 Mg/Ml Cartridge) 4 mg IVPUSH Q4H PRN; Protocol PRN Reason: Pain, Severe (Pain Scale 7-10) Ondansetron HCl (Ondansetron Hcl 4 Mg/2 Ml Vial) 4 mg IVPUSH Q8H PRN PRN Reason: Nausea and Vomiting Sodium Chloride (0.9 % Sodium Chloride Flush 3 Ml Syringe) 3 ml IVFLUSH QSHIFT [facility] Last Admin: 05/23/24 07:21 Dose: 3 ml Home Medications ?Medication ?Instructions ?Recorded ?Confirmed ?Last Taken ?Type famotidine 20 mg tablet 20 mg PO BID 07/15/22 05/23/24 Unknown History oxycodone 30 mg tablet,crush 60 mg PO Q8H 05/22/24 05/22/24 05/22/24 21:00 History resistant,extended release 12 hr (OxyContin) oxycodone-acetaminophen 7.5 mg-325 2 tab PO Q4H PRN pain 05/22/24 05/22/24 05/22/24 21:00 History mg tablet 1 tab colestipol 1 gram tablet 2 g PO BID 05/23/24 05/23/24 Unknown History gabapentin 100 mg capsule 100 mg PO BID 05/23/24 05/23/24 Unknown History levothyroxine 50 mcg tablet 50 mcg PO DAILY 05/23/24 05/23/24 05/23/24 History loperamide 2 mg capsule 2 mg PO Q4H PRN diarrhea 05/23/24 05/23/24 Unknown History tamoxifen 20 mg tablet 20 mg PO DAILY 05/23/24 05/23/24 Unknown History Physical Exam Vital Signs: Vital Signs: Last Vital Signs Temp 98.1 F 05/23/24 09:04 Pulse 72 05/23/24 09:04 Resp 14 05/23/24 09:04 BP 93/48 L 05/23/24 09:04 Pulse Ox 97 05/23/24 09:04 O2 Del Method Room Air 05/23/24 09:04 BMI result Body Mass Index 33.6 Const: General: comfortable, no acute distress and alert Orientation/consciousness: patient oriented x3 Resp: Effort & Inspection: normal respiratory effort GI: Inspection: No distended Palpation (GI): Soft to palpation, Tenderness to palpation present (GI) in the RUQ and Rosenberg's sign positive and no guarding Percussion: Yes normal to percussion Skin: General skin exam: no rashes or lesions noted and no jaundice Neuro: General: patient oriented x3 and moves all extremities Results Labs 05/23/24 04:39 05/23/24 04:39 Labs: Abnormal lab results 05/22/24 05/23/24 Range/Units 16:21 04:39 WBC 4.0 L 2.9 L (4.8-10.8) X10*3/uL RBC 2.92 L 2.55 L (4.20-5.50) X10*6/uL Hgb 10.5 L 9.0 L (12.0-16.0) g/dl Hct 28.9 L 25.7 L (37.0-47.0) % MCV 99.0 H 100.8 H (80.0-98.0) fL MCH 36.0 H 35.3 H (27.0-33.0) pg MCHC 36.3 H (31.0-35.0) g/dl Plt Count 117 L 98 L (160-400) X10*3/uL [place] % (Auto) 12.2 H (2-11) % Lymph # (Auto) 0.9 L 0.7 L (1.2-4.9) X10*3/uL Absolute Neuts (auto) 1.7 L (2.0-8.3) x10*3/uL Absolute Nucleated RBC 0.020 H (0.0-0.012) X10*3/uL Nucleated RBC % (auto) 0.5 H (0.0-0.2) /100WBC Potassium 3.2 L (3.3-5.1) mmol/L Chloride 110 H (96-108) mmol/L Carbon Dioxide 21 L (22-29) mmol/L Anion Gap 10 L (12-20) Calcium 8.0 L D (8.4-10.2) mg/dL AST 43 H (5-31) U/L Short CBC 05/22/24 05/23/24 Range/Units 16:21 04:39 WBC 4.0 L 2.9 L (4.8-10.8) X10*3/uL Hgb 10.5 L 9.0 L (12.0-16.0) g/dl Hct 28.9 L 25.7 L (37.0-47.0) % Plt Count 117 L 98 L (160-400) X10*3/uL BMP 05/22/24 05/23/24 16:21 04:39 Sodium 136 138 Potassium 3.3 3.2 L Chloride 105 110 H Carbon Dioxide 22 21 L BUN 10 9 Creatinine 0.74 0.81 Calcium 8.8 8.0 L D Liver Function 05/22/24 Range/Units 16:21 Total Bilirubin 0.5 (0.0-1.0) mg/dL Direct Bilirubin 0.2 (0.0-0.5) mg/dL AST 43 H (5-31) U/L ALT 23 (0-31) U/L Alkaline Phosphatase 105 (39-117) U/L Albumin 3.7 (3.5-5.0) g/dL All other labs normal. Assessment and Plan (1) Acute calculous cholecystitis: Status: Acute (2) Metastatic malignant neoplasm to breast: Status: Acute Plan 44-year-old female with pertinent history of metastatic breast cancer presenting with mets to the lung, spleen and abdominal lymph nodes admitted for pneumonia, acute cholecystitis. She is tender in the RUQ however given the chronicity of her pain, would obtain CT scan abd/pelvis to assess for abd mets. Further plan dependent on results. Would hope to avoid cholecystectomy in this patient given concurrent penumonia, metastatic breast CA. May require cholecystostomy tube if no improvement in abd pain and tenderness. Discussed with patient. Procedures Date of Service Date of Service: 05/23/24
[2024-05-23] MEDS: oxyCODONE HCl ER 10 MG TAB.ER.12H 30 MG PO ×2 (11:20→18:12)
[2024-05-23] MEDS: Levothyroxine Sodium 50 MCG TABLET PO (11:20)
[2024-05-23] MEDS: Gabapentin 100 MG CAPSULE PO ×2 (11:20→21:58)
[2024-05-23] MEDS: Famotidine 20 MG TABLET PO ×2 (11:20→21:58)
--- NOTE | 2024-05-23 11:52 | HO.PM.IMPN ---
Subjective Subjective Date of Service: 05/23/24 Interval History: seen and evaluated this morning reproting RUQ pain no fever or chills no coughing no other events Review of Systems Review of Systems: Yes all other systems are reviewed and are negative Physical Exam Vital Signs: Vital Signs: Last Vital Signs Temp 98.1 F 05/23/24 09:04 Pulse 72 05/23/24 09:04 Resp 14 05/23/24 09:04 BP 93/48 L 05/23/24 09:04 Pulse Ox 97 05/23/24 09:04 O2 Del Method Room Air 05/23/24 09:04 BMI result Body Mass Index 33.6 Const: Other: Constitutional : interactive, not in distress Cardiovascular : no JVP, no lower extremity edema Respiratory : bilateral chest movement, not in resp distress Gastrointestinal: soft, lax, mild RUQ tenderness with no rebound Skin : Warm, Dry, port in left chest wall Neurological : Alert & oriented , No focal deficit Objective Data Active Medications Acetaminophen (Acetaminophen 325 Mg Tablet) 650 mg PO Q6H PRN PRN Reason: Pain, Mild 1-3,fever,headache Calcium Carbonate (Calcium Carbonate 750 Mg Tab.Chew) 750 mg PO Q4H PRN PRN Reason: Heartburn Cholestyramine Resin (Cholestyramine (With Sugar) 4 Gm Powd.Pack) 4 gm PO BID [facility] Famotidine (Famotidine 20 Mg Tablet) 20 mg PO BID [facility] Last Admin: 05/23/24 11:20 Dose: 20 mg Documented By: PARDEEP Gabapentin (Gabapentin 100 Mg Capsule) 100 mg PO BID [facility] Last Admin: 05/23/24 11:20 Dose: 100 mg Documented By: PARDEEP Piperacillin Sod/Tazobactam (Sod 4.5 gm/ Sodium Chloride) 100 mls @ 200 mls/hr IV Q6H [facility] Last Infusion: 05/23/24 10:45 Dose: Infused Documented By: DOROTA Levothyroxine Sodium (Levothyroxine Sodium 50 Mcg Tablet) 50 mcg PO DAILY@0600 [facility] Last Admin: 05/23/24 11:20 Dose: 50 mcg Documented By: PARDEEP Loperamide HCl (Loperamide Hcl 2 Mg Capsule) 2 mg PO Q4H PRN PRN Reason: diarrhea Magnesium Hydroxide (Milk Of Magnesia 30 Ml Oral.Susp) 30 ml PO DAILY PRN PRN Reason: Constipation Melatonin (Melatonin 3 Mg Tablet) 6 mg PO BEDTIME PRN PRN Reason: Insomnia Morphine Sulfate (Morphine Sulfate 4 Mg/Ml Cartridge) 4 mg IVPUSH Q4H PRN; Protocol PRN Reason: Pain, Severe (Pain Scale 7-10) Ondansetron HCl (Ondansetron Hcl 4 Mg/2 Ml Vial) 4 mg IVPUSH Q8H PRN PRN Reason: Nausea and Vomiting Oxycodone HCl (Oxycodone Hcl Er 10 Mg Tab.Er.12h) 30 mg PO Q8H [facility] Last Admin: 05/23/24 11:20 Dose: 30 mg Documented By: PARDEEP Oxycodone HCl (Oxycodone Hcl Immed Release 5 Mg Tablet) 5 mg PO Q4H PRN PRN Reason: Pain, Severe (Pain Scale 7-10) Sodium Chloride (0.9 % Sodium Chloride Flush 3 Ml Syringe) 3 ml IVFLUSH QSHIFT [facility] Last Admin: 05/23/24 07:21 Dose: 3 ml Documented By: DOROTA Tamoxifen Citrate (Tamoxifen Citrate 10 Mg Tablet) 20 mg PO DAILY [facility] Labs 05/23/24 04:39 05/23/24 04:39 Labs: Laboratory Results - last 24 hr 05/22/24 05/22/24 05/23/24 16:21 19:28 04:39 MCV 99.0 H 100.8 H MCH 36.0 H 35.3 H MCHC 36.3 H 35.0 RDW 15.8 15.9 Plt Count 117 L 98 L MPV 10.6 10.3 Immature Gran % (Auto) 0.3 0.3 Neut % (Auto) 64.7 59.7 Lymph % (Auto) 21.4 22.6 [place] % (Auto) 9.6 12.2 H Eos % (Auto) 3.0 3.8 Baso % (Auto) 1.0 1.4 Lymph # (Auto) 0.9 L 0.7 L [place] # (Auto) 0.4 0.4 Eos # (Auto) 0.1 0.1 Baso # (Auto) 0.0 0.0 Abs Immat Gran (auto) 0.01 0.01 Absolute Neuts (auto) 2.6 1.7 L Absolute Nucleated RBC 0.020 H 0.000 Nucleated RBC % (auto) 0.5 H 0.0 PT 11.7 INR 1.0 Anion Gap 12 10 L Estim Creat Clear Calc 108.4 99.0 Estimated GFR > 60 > 60 Random Glucose 101 95 Lactic Acid 1.1 Calcium 8.8 8.0 L D Magnesium 1.7 Total Bilirubin 0.5 Direct Bilirubin 0.2 AST 43 H ALT 23 Alkaline Phosphatase 105 Total Protein 7.8 Albumin 3.7 Lipase 31 Influenza Type A (PCR) NEGATIVE Influenza Type B (PCR) NEGATIVE RSV RNA Qual (PCR) NEGATIVE SARS-CoV-2 RNA (RT-PCR) NEGATIVE Assessment and Plan (1) Multifocal pneumonia: Status: Acute (2) Obstructive sleep apnea: Status: Acute (3) Acute calculous cholecystitis: Status: Acute Plan This is a 44-year-old female with pertinent history of breast cancer status with mets to the lung, spleen and abdominal lymph nodes status post bilateral mastectomy and radiation, currently on chemotherapy, JR on CPAP, hypothyroidism who presents to the emergency department for evaluation of abdominal pain. # Acute calculous cholecystitis US showed Cholelithiasis with marked thickening of the gallbladder wall suggesting possible acute cholecystitis. alk-phos, liver enzymes and bilirubin within normal limits. Pending cultures Continue IV Zosyn General surgery consulted, check CT , might need cholecystostomy tube if no improvement # bilateral pneumonia normal saturation on room air. On antibiotics as above CTA reporting bilateral infiltrates (could it be metastatic lesions?) on IV Zosyn for now # JR: Continue CPAP at bedtime # Hypothyroidism: On Synthroid # Pancytopenia in the setting of chemotherapy for metastatic breast cancer DVT prophylaxis: SCDs Full code. Discussed with patient at bedside Admit as inpatient and will require overnight hospital stay for IV antibiotic (as above), which is not possible in a lesser acute setting. Quality Stroke Does the patient have a stroke diagnosis?: No VTE Prior VTE?: No VTE Risk Level:: Medical - moderate - high VTE Device Contraindication: N/A - Device Ordered VTE Drug Contraindication: Treatment Not Indicated
--- NOTE | 2024-05-23 12:23 | PC.NURSE ---
Assumed care of this patient at 1100, patient recieved bed assignment, report placed by previous RN, waiting for transport/ inpatient RN to be ready at this time.
--- NOTE | 2024-05-23 13:47 | MHC.CM.PN ---
Pt lives with family, she is functionally independent, no home health services or DME. PCP confirmed: Theron Richard DIN[employer], HCP discussed, pt. declined. Pt. is SSO. Family to transport home at DC. DCP: home, self care. CM to follow for DC needs.
--- NOTE | 2024-05-23 13:49 | PM.EVENT ---
Event Note Date of Service: 05/23/24 Event Note: Reviewed CT abdomen and pelvis. Unable to give IV contrast therefore images of liver did not very conclusive Gallbladder full stones not dilated/fluid-filled Exam this afternoon with some tenderness in the right lower and right upper quadrant Negative Rosenberg sign Patient may have cholecystitis although she is not an ideal candidate for surgery at this time given her recent chemotherapy and low white count. Would favor slowly advancing to a low-fat diet. If patient unable to tolerate p.o., may need cholecystostomy tube. Time Spent With Patient Time: Total time managing care of this patient today ____ minutes.
[2024-05-23] MEDS: Cholestyramine (With Sugar) 4 GM POWD.PACK PO (21:58)
[2024-05-23] MEDS: ondansetron HCL 4 MG/2 ML VIAL IVPUSH (21:58)
[2024-05-23] MEDS: oxyCODONE HCl Immed Release 5 MG TABLET PO (21:58)
[2024-05-24] VITALS (10 sets, daily range): BP systolic 82–92; BP diastolic 48–64; PULSE 73–86; RESP 12–20; TEMP 36.6–36.9; O2SAT 93–97
[2024-05-24] MEDS: Piperacillin Sodium/Tazobactam 4.5 GM in 0.9 % Sodium Chloride 100 ML IV ×4 (03:31→22:00)
[2024-05-24] MEDS: oxyCODONE HCl ER 10 MG TAB.ER.12H 30 MG PO (03:31)
[2024-05-24] MEDS: 0.9 % Sodium Chloride Flush 3 ML SYRINGE IVFLUSH ×3 (03:40→20:29)
[2024-05-24 06:01] LABS: Basophils Percent Auto 0.8 % (0-2); Eosinophils Absolute Auto 0.1 X10*3/uL (0.0-0.4); Hematocrit 25.4 % (37.0-47.0); Hemoglobin 9.1 g/dl (12.0-16.0); Imm Gran Abs Auto 0.01 X10*3/uL (0.00-0.03); Imm Gran Pct Auto 0.4 % (0.0-0.4); Lymphocytes Absolute Auto 0.5 X10*3/uL (1.2-4.9); Lymphocytes Percent Auto 21.5 % (20-40); MANUAL DIFF FLAG SCAN; Mean Corpuscular HGB Conc 35.8 g/dl (31.0-35.0); Mean Corpuscular Volume 100.4 fL (80.0-98.0); Mean Platelet Volume 10.4 fL (9.4-12.3); Monocytes Absolute Auto 0.3 X10*3/uL (0.1-1.2); Monocytes Percent Auto 10.7 % (2-11); Neutrophils Absolute Auto 1.5 x10*3/uL (2.0-8.3); Neutrophils Percent Auto 61.6 % (45-73); Platelet Count 111 X10*3/uL (160-400); Red Blood Count 2.53 X10*6/uL (4.20-5.50); Red Cell Distribution Width 16.2 % (11.0-16.0); SCAN SMEAR FLAG 1; White Blood Count 2.4 X10*3/uL (4.8-10.8)
[2024-05-24 06:22] LABS: SLIDE REVIEW VERIFIED
[2024-05-24 06:24] LABS: Anion Gap 10 (12-20); Blood Urea Nitrogen 6 mg/dL (9-16); Calcium 8.2 mg/dL (8.4-10.2); Carbon Dioxide 22 mmol/L (22-29); Chloride 108 mmol/L (96-108); Creatinine Clr Calc Pharmacy 92.2; Estimated Glomerular Filt Rate > 60; Glucose Random 93 mg/dL (60-115); Potassium 3.1 mmol/L (3.3-5.1); Sodium 137 mmol/L (135-145)
[2024-05-24] MEDS: Levothyroxine Sodium 50 MCG TABLET PO (06:46)
--- NOTE | 2024-05-24 07:59 | PM.PNGS ---
Subjective Subjective Date of Service: 05/24/24 Interval history: Patient was able to tolerate clear liquid diet yesterday. She did report some nausea without vomiting. Still having some pain in the right upper quadrant. Physical Exam Vital Signs: Vital Signs: Last Vital Signs Temp 98 F 05/24/24 07:03 Pulse 73 05/24/24 07:03 Resp 12 05/24/24 07:03 BP 92/51 L 05/24/24 07:03 Pulse Ox 94 05/24/24 07:03 O2 Del Method Room Air 05/24/24 03:30 BMI result Body Mass Index 33.6 Const: General: no acute distress Nutritional Appearance: well nourished Orientation/consciousness: patient oriented x3 Resp: Effort & Inspection: normal respiratory effort GI: Palpation (GI): Soft to palpation, Tenderness to palpation present (GI) in the RUQ; Rosenberg's sign negative, no guarding and not rigid Percussion: Yes normal to percussion Skin: General skin exam: no rashes or lesions noted Neuro: General: patient oriented x3 Objective Data Active Medications Acetaminophen (Acetaminophen 325 Mg Tablet) 650 mg PO Q6H PRN PRN Reason: Pain, Mild 1-3,fever,headache Calcium Carbonate (Calcium Carbonate 750 Mg Tab.Chew) 750 mg PO Q4H PRN PRN Reason: Heartburn Cholestyramine Resin (Cholestyramine (With Sugar) 4 Gm Powd.Pack) 4 gm PO BID [facility] Last Admin: 05/23/24 21:58 Dose: 4 gm Documented By: YENNI Famotidine (Famotidine 20 Mg Tablet) 20 mg PO BID [facility] Last Admin: 05/23/24 21:58 Dose: 20 mg Documented By: YENNI Gabapentin (Gabapentin 100 Mg Capsule) 100 mg PO BID [facility] Last Admin: 05/23/24 21:58 Dose: 100 mg Documented By: YENNI Piperacillin Sod/Tazobactam (Sod 4.5 gm/ Sodium Chloride) 100 mls @ 200 mls/hr IV Q6H [facility] Last Infusion: 05/24/24 04:05 Dose: Infused Documented By: YENNI Potassium Chloride (Potassium Chloride/H20) 10 meq in 100 mls @ 100 mls/hr IV Q1H [facility] Stop: 05/24/24 10:44 Levothyroxine Sodium (Levothyroxine Sodium 50 Mcg Tablet) 50 mcg PO DAILY@0600 [facility] Last Admin: 05/24/24 06:46 Dose: 50 mcg Documented By: YENNI Loperamide HCl (Loperamide Hcl 2 Mg Capsule) 2 mg PO Q4H PRN PRN Reason: diarrhea Magnesium Hydroxide (Milk Of Magnesia 30 Ml Oral.Susp) 30 ml PO DAILY PRN PRN Reason: Constipation Melatonin (Melatonin 3 Mg Tablet) 6 mg PO BEDTIME PRN PRN Reason: Insomnia Morphine Sulfate (Morphine Sulfate 4 Mg/Ml Cartridge) 4 mg IVPUSH Q4H PRN; Protocol PRN Reason: Pain, Severe (Pain Scale 7-10) Ondansetron HCl (Ondansetron Hcl 4 Mg/2 Ml Vial) 4 mg IVPUSH Q8H PRN PRN Reason: Nausea and Vomiting Last Admin: 05/23/24 21:58 Dose: 4 mg Documented By: YENNI Oxycodone HCl (Oxycodone Hcl Er 10 Mg Tab.Er.12h) 30 mg PO Q8H [facility] Last Admin: 05/24/24 03:31 Dose: 30 mg Documented By: YENNI Oxycodone HCl (Oxycodone Hcl Immed Release 5 Mg Tablet) 5 mg PO Q4H PRN PRN Reason: Pain, Severe (Pain Scale 7-10) Last Admin: 05/23/24 21:58 Dose: 5 mg Documented By: YENNI Sodium Chloride (0.9 % Sodium Chloride Flush 3 Ml Syringe) 3 ml IVFLUSH QSHIFT [facility] Last Admin: 05/24/24 03:40 Dose: 3 ml Documented By: YENIN Tamoxifen Citrate (Tamoxifen Citrate 10 Mg Tablet) 20 mg PO DAILY [facility] Labs 05/24/24 05:04 05/24/24 05:04 Labs: Laboratory Results - last 24 hr 05/24/24 05:04 MCV 100.4 H MCH 36.0 H MCHC 35.8 H RDW 16.2 H Plt Count 111 L MPV 10.4 Immature Gran % (Auto) 0.4 Neut % (Auto) 61.6 Lymph % (Auto) 21.5 [place] % (Auto) 10.7 Eos % (Auto) 5.0 H Baso % (Auto) 0.8 Lymph # (Auto) 0.5 L [place] # (Auto) 0.3 Eos # (Auto) 0.1 Baso # (Auto) 0.0 Abs Immat Gran (auto) 0.01 Absolute Neuts (auto) 1.5 L Absolute Nucleated RBC 0.000 Nucleated RBC % (auto) 0.0 Smear Tech's Comments VERIFIED Anion Gap 10 L Estim Creat Clear Calc 92.2 Estimated GFR > 60 Random Glucose 93 Calcium 8.2 L Microbiology Microbiology Results: Microbiology 05/22/24 19:39 Blood Culture - Preliminary Blood - Venous No growth after 24 hours. 05/22/24 19:28 Blood Culture - Preliminary Blood - Venous No growth after 24 hours. Procedures Date of Service Date of Service: 05/24/24 Progress Note: A&P Assessment and plan (1) Metastatic malignant neoplasm to breast: Status: Acute (2) Acute calculous cholecystitis: Status: Acute Plan 44-year-old female patient with metastatic breast cancer currently undergoing chemotherapy, neutropenia due to chemotherapy, now with abdominal pain in the right upper quadrant. Findings are suggestive of cholecystitis due to cholelithiasis. Overall patient appears improved with decreased abdominal tenderness. She was able to tolerate clear liquids. Recommend advancing to low-fat diet. We will continue to monitor patient's progress. Time Spent With Patient Time: Total time managing care of this patient today ____ minutes. Quality Stroke Does the patient have a stroke diagnosis?: No VTE Prior VTE?: No VTE Risk Level:: Medical - moderate - high VTE Device Contraindication: N/A - Device Ordered VTE Drug Contraindication: Treatment Not Indicated
[2024-05-24] MEDS: Tamoxifen Citrate 10 MG TABLET 20 MG PO (08:04)
[2024-05-24] MEDS: Potassium Chloride/H20 10 MEQ/100 ML PIGGYBACK 100 MEQ IV ×4 (08:04→13:31)
[2024-05-24] MEDS: Famotidine 20 MG TABLET PO ×2 (08:04→20:27)
[2024-05-24] MEDS: Cholestyramine (With Sugar) 4 GM POWD.PACK PO ×2 (08:04→20:27)
[2024-05-24] MEDS: Gabapentin 100 MG CAPSULE PO ×2 (08:05→20:27)
--- NOTE | 2024-05-24 08:13 | P.PNIM_ITS ---
Subjective Subjective Date of Service: 05/24/24 Interval History: seen and evaluated this morning reproting RUQ pain little better but still there no fever or chills no coughing no other events Review of Systems Review of Systems: Yes all other systems are reviewed and are negative Physical Exam 2 Vital Signs: Vital Signs: Last Vital Signs Temp 97.8 F 05/24/24 07:54 Pulse 80 05/24/24 07:54 Resp 20 05/24/24 07:54 BP 85/50 L 05/24/24 07:54 Pulse Ox 96 05/24/24 07:54 O2 Del Method Room Air 05/24/24 07:54 BMI result Body Mass Index 33.6 Const: Other: Constitutional : interactive, not in distress Cardiovascular : no JVP, no lower extremity edema Respiratory : bilateral chest movement, not in resp distress Gastrointestinal: soft, lax, mild RUQ tenderness with no rebound Skin : Warm, Dry, port in left chest wall Neurological : Alert & oriented , No focal deficit Objective Data Active Medications Acetaminophen (Acetaminophen 325 Mg Tablet) 650 mg PO Q6H PRN PRN Reason: Pain, Mild 1-3,fever,headache Calcium Carbonate (Calcium Carbonate 750 Mg Tab.Chew) 750 mg PO Q4H PRN PRN Reason: Heartburn Cholestyramine Resin (Cholestyramine (With Sugar) 4 Gm Powd.Pack) 4 gm PO BID [facility] Last Admin: 05/23/24 21:58 Dose: 4 gm Documented By: YENNI Famotidine (Famotidine 20 Mg Tablet) 20 mg PO BID [facility] Last Admin: 05/23/24 21:58 Dose: 20 mg Documented By: YENNI Gabapentin (Gabapentin 100 Mg Capsule) 100 mg PO BID [facility] Last Admin: 05/23/24 21:58 Dose: 100 mg Documented By: YENNI Piperacillin Sod/Tazobactam (Sod 4.5 gm/ Sodium Chloride) 100 mls @ 200 mls/hr IV Q6H [facility] Last Infusion: 05/24/24 04:05 Dose: Infused Documented By: YENNI Potassium Chloride (Potassium Chloride/H20) 10 meq in 100 mls @ 100 mls/hr IV Q1H [facility] Stop: 05/24/24 10:44 Levothyroxine Sodium (Levothyroxine Sodium 50 Mcg Tablet) 50 mcg PO DAILY@0600 [facility] Last Admin: 05/24/24 06:46 Dose: 50 mcg Documented By: YENNI Loperamide HCl (Loperamide Hcl 2 Mg Capsule) 2 mg PO Q4H PRN PRN Reason: diarrhea Magnesium Hydroxide (Milk Of Magnesia 30 Ml Oral.Susp) 30 ml PO DAILY PRN PRN Reason: Constipation Melatonin (Melatonin 3 Mg Tablet) 6 mg PO BEDTIME PRN PRN Reason: Insomnia Morphine Sulfate (Morphine Sulfate 4 Mg/Ml Cartridge) 4 mg IVPUSH Q4H PRN; Protocol PRN Reason: Pain, Severe (Pain Scale 7-10) Ondansetron HCl (Ondansetron Hcl 4 Mg/2 Ml Vial) 4 mg IVPUSH Q8H PRN PRN Reason: Nausea and Vomiting Last Admin: 05/23/24 21:58 Dose: 4 mg Documented By: YENNI Oxycodone HCl (Oxycodone Hcl Er 10 Mg Tab.Er.12h) 30 mg PO Q8H [facility] Last Admin: 05/24/24 03:31 Dose: 30 mg Documented By: YENNI Oxycodone HCl (Oxycodone Hcl Immed Release 5 Mg Tablet) 5 mg PO Q4H PRN PRN Reason: Pain, Severe (Pain Scale 7-10) Last Admin: 05/23/24 21:58 Dose: 5 mg Documented By: YENNI Sodium Chloride (0.9 % Sodium Chloride Flush 3 Ml Syringe) [facility] Last Admin: 05/24/24 03:40 Dose: 3 ml Documented By: YENNI Tamoxifen Citrate (Tamoxifen Citrate 10 Mg Tablet) 20 mg PO DAILY [facility] Labs 05/24/24 05:04 05/24/24 05:04 Labs: Laboratory Results - last 24 hr 05/24/24 05:04 MCV 100.4 H MCH 36.0 H MCHC 35.8 H RDW 16.2 H Plt Count 111 L MPV 10.4 Immature Gran % (Auto) 0.4 Neut % (Auto) 61.6 Lymph % (Auto) 21.5 [place] % (Auto) 10.7 Eos % (Auto) 5.0 H Baso % (Auto) 0.8 Lymph # (Auto) 0.5 L [place] # (Auto) 0.3 Eos # (Auto) 0.1 Baso # (Auto) 0.0 Abs Immat Gran (auto) 0.01 Absolute Neuts (auto) 1.5 L Absolute Nucleated RBC 0.000 Nucleated RBC % (auto) 0.0 Smear Tech's Comments VERIFIED Anion Gap 10 L Estim Creat Clear Calc 92.2 Estimated GFR > 60 Random Glucose 93 Calcium 8.2 L Microbiology Microbiology Results: Microbiology 05/22/24 19:39 Blood Culture - Preliminary Blood - Venous No growth after 24 hours. 05/22/24 19:28 Blood Culture - Preliminary Blood - Venous No growth after 24 hours. Assessment and Plan (1) Multifocal pneumonia: Status: Acute (2) Metastatic malignant neoplasm to breast: Status: Acute (3) Acute calculous cholecystitis: Status: Acute Plan This is a 44-year-old female with pertinent history of breast cancer status with mets to the lung, spleen and abdominal lymph nodes status post bilateral mastectomy and radiation, currently on chemotherapy, JR on CPAP, hypothyroidism who presents to the emergency department for evaluation of abdominal pain. # Acute calculous cholecystitis US showed Cholelithiasis with marked thickening of the gallbladder wall suggesting possible acute cholecystitis. alk-phos, liver enzymes and bilirubin within normal limits. Pending cultures Continue IV Zosyn General surgery consulted, might need cholecystostomy tube if no improvement, advance diet and watch advance to low fat diet # bilateral pneumonia normal saturation on room air. On antibiotics as above CTA reporting bilateral infiltrates (could it be metastatic lesions?) on IV Zosyn for now # Leukopenia almost Neutropenia with ANC close to 1500 post chemo To give Filgrastem follow CBC # JR Continue CPAP at bedtime # Hypothyroidism On Synthroid # Pancytopenia in the setting of chemotherapy for metastatic breast cancer DVT prophylaxis: SCDs Full code. Discussed with patient at bedside Admit as inpatient and will require overnight hospital stay for IV antibiotic (as above), which is not possible in a lesser acute setting. Quality Stroke Does the patient have a stroke diagnosis?: No VTE Prior VTE?: No VTE Risk Level:: Medical - moderate - high VTE Device Contraindication: N/A - Device Ordered VTE Drug Contraindication: Treatment Not Indicated
[2024-05-24] MEDS: 0.9 % Sodium Chloride 1,000 ML 999 ML IV ×2 (08:25→16:22)
--- NOTE | 2024-05-24 16:00 | PC.NURSE ---
Assumed care of patient at 0645. Morning BP 92/51 with patient resting comfortably in bed. Blood pressure re-checked within one hour with result of 85/50. Dr. Morrow notified and 1L 0.9% normal saline bolus ordered and administered (see MAR for details). Repeat BP post bolus 86/64. No further orders placed at this time. Patient resting in bed and remains asymptomatic. Ambulating to restroom independently. No c/o dizziness, lightheadedness, vision changes, or weakness. Patient reports feeling normal . 1400 BP of 85/57. Dr. Morrow notified. No new orders placed. 1553 BP of 84/52. Dr. Morrow notified and arrived to bedside. Patient remains asymptomatic with plan to order midodrine. See MAR for further details.
[2024-05-24] MEDS: Midodrine HCl 5 MG TABLET PO ×2 (16:22→20:27)
[2024-05-24] MEDS: oxyCODONE HCl Immed Release 5 MG TABLET PO (20:27)
[2024-05-25] VITALS (12 sets, daily range): BP systolic 78–124; BP diastolic 44–77; PULSE 70–92; RESP 18; TEMP 36–36.9; O2SAT 94–97
[2024-05-25] MEDS: Piperacillin Sodium/Tazobactam 4.5 GM in 0.9 % Sodium Chloride 100 ML IV ×2 (03:40→09:19)
[2024-05-25] MEDS: Albumin Human 25 % 100 ML 133.33 ML IV (04:17)
[2024-05-25] MEDS: Lactated Ringers 1,000 ML 999 ML IV ×2 (04:20→06:17)
--- NOTE | 2024-05-25 04:35 | PC.NURSE ---
Addendum entered by Tara Roberson RN 05/25/24 07:05: BP rechecked at 0520: 83/47, 0600: BP:78/[address] Owen made aware, new orders placed per JUN. Original Note: Low BP at 80/46, HR;75, RR:18,, O2: 94%, Temp: 97.3, pt is asymptomatic at this time, Denies dizziness or CP. Pt respirations even and nonlabored, resting with no apparent distress at this time. Dr. Alcala made aware, New orders placed per JUN
[2024-05-25] MEDS: Levothyroxine Sodium 50 MCG TABLET PO (05:21)
--- NOTE | 2024-05-25 07:04 | PM.EVENT ---
Event Note Date of Service: 05/25/24 Event Note: Notified of a patient with a low SBP of 87, though she remains asymptomatic. A record review indicates that she has been persistently hypotensive but does not meet sepsis criteria. She denies symptoms such as dizziness, shortness of breath, chest pain, or confusion, stating, I feel fine. She was given LR boluses, albumin, and continued on midodrine. Creatinine has remained normal throughout. On examination, she is fully lucid, very warm to touch, and clinically well-perfused, with good peripheral pulses and capillary refill. Repeat lactic acid, random cortisol, and TSH are being checked. Time Spent With Patient Time: Total time managing care of this patient today ____ minutes.
[2024-05-25 07:08] LABS: MANUAL DIFF FLAG NO
[2024-05-25 07:23] LABS: Basophils Absolute Auto 0.1 X10*3/uL (0.0-0.2); Eosinophils Absolute Auto 0.1 X10*3/uL (0.0-0.4); Eosinophils Percent Auto 1.6 % (0-4); Hematocrit 24.2 % (37.0-47.0); Hemoglobin 8.7 g/dl (12.0-16.0); Imm Gran Abs Auto 0.08 X10*3/uL (0.00-0.03); Imm Gran Pct Auto 1.4 % (0.0-0.4); Lymphocytes Absolute Auto 0.6 X10*3/uL (1.2-4.9); Lymphocytes Percent Auto 10.7 % (20-40); Mean Corpuscular Hemoglobin 36.3 pg (27.0-33.0); Mean Corpuscular Volume 100.8 fL (80.0-98.0); Mean Platelet Volume 10.2 fL (9.4-12.3); Monocytes Absolute Auto 0.4 X10*3/uL (0.1-1.2); Monocytes Percent Auto 6.3 % (2-11); NRBC Pct Auto 0.3 /100WBC (0.0-0.2); Neutrophils Absolute Auto 4.5 x10*3/uL (2.0-8.3); Platelet Count 113 X10*3/uL (160-400); Red Cell Distribution Width 16.9 % (11.0-16.0); White Blood Count 5.7 X10*3/uL (4.8-10.8)
[2024-05-25 07:31] LABS: Lactic Acid 1.9 mmol/L (0.5-2.0)
[2024-05-25 07:47] LABS: Cortisol Random 11.8 ug/dL
[2024-05-25 07:50] LABS: Alanine Aminotransferase 17 U/L (0-31); Albumin Level 3.2 g/dL (3.5-5.0); Alkaline Phosphatase 91 U/L (39-117); Anion Gap 11 (12-20); Aspartate Amino Transferase 33 U/L (5-31); Bilirubin Direct 0.2 mg/dL (0.0-0.5); Bilirubin Total 0.5 mg/dL (0.0-1.0); Blood Urea Nitrogen 5 mg/dL (9-16); Calcium 8.6 mg/dL (8.4-10.2); Carbon Dioxide 22 mmol/L (22-29); Chloride 111 mmol/L (96-108); Creatinine Clr Calc Pharmacy 96.6; Estimated Glomerular Filt Rate > 60; Glucose Random 82 mg/dL (60-115); Potassium 3.3 mmol/L (3.3-5.1); Sodium 141 mmol/L (135-145); Total Protein 6.2 g/dL (6.5-8.0)
[2024-05-25 08:03] LABS: TSH reflex Free T4 46.23 uIU/mL (0.32-4.0)
[2024-05-25] MEDS: Lactated Ringers 1,000 ML 125 ML IVCONT (08:16)
[2024-05-25] MEDS: 0.9 % Sodium Chloride Flush 3 ML SYRINGE IVFLUSH (08:19)
[2024-05-25 08:46] LABS: Free T4 (Free Thyroxine) 0.52 ng/dL (0.71-1.85)
[2024-05-25] MEDS: Tamoxifen Citrate 10 MG TABLET 20 MG PO (09:20)
[2024-05-25] MEDS: Gabapentin 100 MG CAPSULE PO (09:20)
[2024-05-25] MEDS: Midodrine HCl 5 MG TABLET PO ×2 (09:20→14:47)
[2024-05-25] MEDS: Cholestyramine (With Sugar) 4 GM POWD.PACK PO (09:20)
[2024-05-25] MEDS: Famotidine 20 MG TABLET PO (09:20)
--- NOTE | 2024-05-25 11:20 | P.PNGS_ITS ---
Subjective Subjective Date of Service: 05/25/24 Interval history: Feels improved. Less pain. Asking where breakfast is. Physical Exam 2 Vital Signs: Vital Signs: Last Vital Signs Temp 96.8 F 05/25/24 07:05 Pulse 73 05/25/24 08:25 Resp 18 05/25/24 07:05 BP 85/51 L 05/25/24 08:25 Pulse Ox 97 05/25/24 07:05 O2 Del Method Room Air 05/25/24 07:05 BMI result Body Mass Index 33.6 Objective Data Active Medications Acetaminophen (Acetaminophen 325 Mg Tablet) 650 mg PO Q6H PRN PRN Reason: Pain, Mild 1-3,fever,headache Calcium Carbonate (Calcium Carbonate 750 Mg Tab.Chew) 750 mg PO Q4H PRN PRN Reason: Heartburn Cholestyramine Resin (Cholestyramine (With Sugar) 4 Gm Powd.Pack) 4 gm PO BID [facility] Last Admin: 05/25/24 09:20 Dose: 4 gm Documented By: RAMSES Famotidine (Famotidine 20 Mg Tablet) 20 mg PO BID [facility] Last Admin: 05/25/24 09:20 Dose: 20 mg Documented By: RAMSES Gabapentin (Gabapentin 100 Mg Capsule) 100 mg PO BID [facility] Last Admin: 05/25/24 09:20 Dose: 100 mg Documented By: RAMSES Piperacillin Sod/Tazobactam (Sod 4.5 gm/ Sodium Chloride) 100 mls @ 200 mls/hr IV Q6H [facility] Last Infusion: 05/25/24 10:00 Dose: Infused Documented By: RAMSES Lactated Ringer's (Lr) 1,000 mls @ 125 mls/hr IVCONT .Q8H [facility] Last Infusion: 05/25/24 10:00 Dose: 125 mls/hr Documented By: RAMSES Levothyroxine Sodium (Levothyroxine Sodium 50 Mcg Tablet) 50 mcg PO DAILY@0600 [facility] Last Admin: 05/25/24 05:21 Dose: 50 mcg Documented By: SCOT Loperamide HCl (Loperamide Hcl 2 Mg Capsule) 2 mg PO Q4H PRN PRN Reason: diarrhea Magnesium Hydroxide (Milk Of Magnesia 30 Ml Oral.Susp) 30 ml PO DAILY PRN PRN Reason: Constipation Melatonin (Melatonin 3 Mg Tablet) 6 mg PO BEDTIME PRN PRN Reason: Insomnia Midodrine (Midodrine Hcl 5 Mg Tablet) 5 mg PO TID [facility] Last Admin: 05/25/24 09:20 Dose: 5 mg Documented By: RAMSES Morphine Sulfate (Morphine Sulfate 4 Mg/Ml Cartridge) 4 mg IVPUSH Q4H PRN; Protocol PRN Reason: Pain, Severe (Pain Scale 7-10) Ondansetron HCl (Ondansetron Hcl 4 Mg/2 Ml Vial) 4 mg IVPUSH Q8H PRN PRN Reason: Nausea and Vomiting Last Admin: 05/23/24 21:58 Dose: 4 mg Documented By: YENNI Oxycodone HCl (Oxycodone Hcl Er 10 Mg Tab.Er.12h) 30 mg PO Q8H [facility] Last Admin: 05/24/24 11:52 Dose: Not Given Documented By: RAMSES Non-Admin Reason: Physician Held Med Oxycodone HCl (Oxycodone Hcl Immed Release 5 Mg Tablet) 5 mg PO Q4H PRN PRN Reason: Pain, Severe (Pain Scale 7-10) Last Admin: 05/24/24 20:27 Dose: 5 mg Documented By: SCOT Sodium Chloride (0.9 % Sodium Chloride Flush 3 Ml Syringe) 3 ml IVFLUSH QSHIFT [facility] Last Admin: 05/25/24 08:19 Dose: 3 ml Documented By: RAMSES Tamoxifen Citrate (Tamoxifen Citrate 10 Mg Tablet) 20 mg PO DAILY [facility] Last Admin: 05/25/24 09:20 Dose: 20 mg Documented By: RAMSES Labs 05/25/24 05:59 05/25/24 05:59 Labs: Laboratory Results - last 24 hr 05/25/24 05/25/24 05:59 06:54 MCV 100.8 H MCH 36.3 H MCHC 36.0 H RDW 16.9 H Plt Count 113 L MPV 10.2 Immature Gran % (Auto) 1.4 H Neut % (Auto) 79.0 H Lymph % (Auto) 10.7 L [place] % (Auto) 6.3 Eos % (Auto) 1.6 Baso % (Auto) 1.0 Lymph # (Auto) 0.6 L [place] # (Auto) 0.4 Eos # (Auto) 0.1 Baso # (Auto) 0.1 Abs Immat Gran (auto) 0.08 H Absolute Neuts (auto) 4.5 Absolute Nucleated RBC 0.020 H Nucleated RBC % (auto) 0.3 H Anion Gap 11 L Estim Creat Clear Calc 96.6 Estimated GFR > 60 Random Glucose 82 Lactic Acid 1.9 Calcium 8.6 Total Bilirubin 0.5 Direct Bilirubin 0.2 AST 33 H ALT 17 Alkaline Phosphatase 91 Total Protein 6.2 L Albumin 3.2 L TSH 46.23 H Free T4 0.52 L Random Cortisol 11.8 Microbiology Microbiology Results: Microbiology 05/22/24 19:39 Blood Culture - Preliminary Blood - Venous No growth after 48 hours. 05/22/24 19:28 Blood Culture - Preliminary Blood - Venous No growth after 48 hours. Procedures Date of Service Date of Service: 05/25/24 Progress Note: A&P Assessment and plan (1) Acute calculous cholecystitis: Status: Acute (2) Metastatic malignant neoplasm to breast: Status: Acute Plan 44-year-old female patient with metastatic breast cancer currently undergoing chemotherapy, neutropenia due to chemotherapy, now with abdominal pain in the right upper quadrant. Findings are suggestive of cholecystitis due to cholelithiasis. Patient continues to feel improved with decreased abdominal tenderness. Started on solid diet yesterday but reports she has not eaten anything yet. If tolerating solid diet without increasing pain, can f/u in office in 1 week following discharge. Time Spent With Patient Time: Total time managing care of this patient today ____ minutes. Quality Stroke Does the patient have a stroke diagnosis?: No VTE Prior VTE?: No VTE Risk Level:: Medical - moderate - high VTE Device Contraindication: N/A - Device Ordered VTE Drug Contraindication: Treatment Not Indicated
--- NOTE | 2024-05-25 15:28 | PM.DS ---
DS: Providers Provider Date of Service: 05/25/24 Date of admission: 05/22/24 22:50 Date of discharge: 05/25/24 Primary care physician: Theron Richard NP Consults: 05/22/24 22:57 Consult to General Surgery Routine Consulting Provider[place] [facility] [place] Reason for consultation: acute cholecystitis DS: Diagnosis Discharge Diagnosis (1) Acute calculous cholecystitis: Status: Acute (2) Metastatic malignant neoplasm to breast: Status: Acute (3) Multifocal pneumonia: Status: Acute (4) Obstructive sleep apnea: Status: Acute (5) Hypothyroidism: Status: Acute DS: Summary Hospital Course Hospital Course: Admission note HPI This is a 44-year-old female with pertinent history of breast cancer status with mets to the lung, spleen and abdominal lymph nodes status post bilateral mastectomy and radiation, currently on chemotherapy, JR on CPAP, hypothyroidism who presents to the emergency department for evaluation of abdominal pain. History obtained with the help of liner man. Patient states she has been having right upper quadrant pain that has been ongoing for a while. It has been progressive, constant, nonradiating and without any relieving factors. Has associated nausea due to it. Initially patient thought it was due to underlying cancer and chemotherapy. Admits loose stools. No cough or shortness of breath. Her last chemotherapy was earlier this month. No fever, chills, chest pain, palpitations, changes in urinary habits. In the emergency department, imaging with cholelithiasis and thickening of the gallbladder wall suggesting acute cholecystitis. Hospital course The patient was evaluated and treated for the following: # Acute calculous cholecystitis US showed Cholelithiasis with marked thickening of the gallbladder wall suggesting possible acute cholecystitis. CT scan on admission showed Edematous gallbladder wall with cholelithiasis. Acute cholecystitis versus hepatitis versus prolonged fasting should be included in differential diagnosis. while blood work showed alk-phos, liver enzymes and bilirubin within normal limits. She was treated with IV Zosyn as blood cultures remained negative. General surgery consulted and recommended conservative treatment and avoid surgical intervention suggesting cholecystostomy tube if no improvement. The patient felt much better with the treatment and was able to tolerate diet which was advance to low-fat regular diet. Plan to follow with surgery team next week in office. To finish 7 more days of Augmentin. # bilateral pneumonia normal saturation on room air. CTA reporting bilateral infiltrates which was treatment with IV Zosyn. cultures remained negative. to finish 1 week of Augmentin. # Pancytopenia in the setting of chemotherapy for metastatic breast cancer almost Neutropenia with ANC close to 1500 post chemo. received one dose of Filgrastem with good response. to follow as outpatient. # JR Continue CPAP at bedtime # Hypothyroidism On Synthroid 50 mcg. found to have elevated TSH of 47 with low Free T4 of 0.5. Increased dose of Levothyroxine to 75 mcg. will need repeat TSH in 4-6 weeks by PCP> # Hypotension Likely multifactorial and persistent during her hospital stay related to metastatic cancer, chemotherapy, hypothyrodism, Narcotics and decrease oral intake. responded fairly well to hydration with multiple boluses and maintenance IV fluids and Albumin. addition of Midodrine and treating underlying infection. To keep on small dose Midodrine for the next week while finishing her antibiotics. Cut down Oxycontin to 30 mg instead of 60 (she did not take any for 2 days with no worsening of pain). To monitor at home and report readings to PCP. Discharge plan Low fat diet Stay well hydrated Decrease Oxycontin to 30 mg only (1 tab) and take it once or twice a day if needed Midodrine for the next week to support blood pressure Augmentin for 1 more week Zofran as needed for nausea Increase Levothyroxine dose to 75 mcg and repeat TSH testing in 4-6 weeks. Follow with PCP for further adjustments. Follow up with surgery next week after calling for appointment on [phone] Time Attestation Discharge Coordination Time (in mins): 48 Quality: Safe Use of Opioids Does Pt have an Active Cancer Diagnosis on the Problem List?: Yes Opioid Measure Date for [facility] Report: 04/25/24 Opioid Measure Time for [facility] Report: 16:33 Quality: Stroke Does the patient have a stroke diagnosis?: No Physical Exam Vital Signs: Vital Signs: Last Vital Signs Temp 96.8 F 05/25/24 12:00 Pulse 80 05/25/24 14:56 Resp 18 05/25/24 12:00 BP 124/60 05/25/24 14:47 Pulse Ox 95 05/25/24 12:00 O2 Del Method Room Air 05/25/24 12:00 BMI result Body Mass Index 33.6 Const: Other: Constitutional : interactive, not in distress Cardiovascular : no JVP, no lower extremity edema Respiratory : bilateral chest movement, not in resp distress Gastrointestinal: soft, lax, minimal RUQ tenderness, no rebound Skin : Warm, Dry, port in left chest wall Neurological : Alert & oriented , No focal deficit DS: Data Data Completed and Pending Labs on day of discharge: Laboratory Results - last 24 hr 05/25/24 05/25/24 05:59 06:54 WBC 5.7 RBC 2.40 L Hgb 8.7 L Hct 24.2 L MCV 100.8 H MCH 36.3 H MCHC 36.0 H RDW 16.9 H Plt Count 113 L MPV 10.2 Immature Gran % (Auto) 1.4 H Neut % (Auto) 79.0 H Lymph % (Auto) 10.7 L [place] % (Auto) 6.3 Eos % (Auto) 1.6 Baso % (Auto) 1.0 Lymph # (Auto) 0.6 L [place] # (Auto) 0.4 Eos # (Auto) 0.1 Baso # (Auto) 0.1 Abs Immat Gran (auto) 0.08 H Absolute Neuts (auto) 4.5 Absolute Nucleated RBC 0.020 H Nucleated RBC % (auto) 0.3 H Sodium 141 Potassium 3.3 Chloride 111 H Carbon Dioxide 22 Anion Gap 11 L BUN 5 L Creatinine 0.83 Estim Creat Clear Calc 96.6 Estimated GFR > 60 Random Glucose 82 Lactic Acid 1.9 Calcium 8.6 Total Bilirubin 0.5 Direct Bilirubin 0.2 AST 33 H ALT 17 Alkaline Phosphatase 91 Total Protein 6.2 L Albumin 3.2 L TSH 46.23 H Free T4 0.52 L Random Cortisol 11.8 Preliminary micro results at discharge 05/22/24 19:39 Blood Culture - Preliminary Blood - Venous No growth after 48 hours. 05/22/24 19:28 Blood Culture - Preliminary Blood - Venous No growth after [address] scan - abdomen: Radiologist's impression: ITS Impressions Abdomen/Pelvis CT 05/23/24 11:27 IMPRESSION: Concerning multifocal pneumonia with a small volume pleural effusions. Edematous gallbladder wall with cholelithiasis. Acute cholecystitis versus hepatitis versus prolonged fasting should be included in differential diagnosis. Hepatosplenomegaly. Fleischner guidelines were followed. Electronically signed by: Mikhail Ramirez MD 05/23/2024 12:01 PM [facility] Discharge Plan Discharge Anticipated Discharge Date/Time: 05/25/24 15:21 Patient Disposition: Home, Self-Care Discharge Diagnosis: Acute cholecystitis Pneumonia Referrals: Theron Richard [employer]SEM[employer] [Primary Care Provider] - 1 Week Discharge Medications: New midodrine 5 mg Tablet 2.5 mg PO TID Qty: 30 0RF amoxicillin-pot clavulanate 875-125 mg tablet 1 tab PO BID Qty: 14 0RF ondansetron 4 mg tablet,disintegrating 4 mg PO Q8H PRN (Reason: nausea and vomiting) Qty: 20 0RF levothyroxine 75 mcg capsule 75 mcg PO DAILY Qty: 90 0RF Continued oxycodone-acetaminophen 7.5-325 mg tablet 2 tab PO Q4H PRN (Reason: pain) loperamide 2 mg capsule 2 mg PO Q4H PRN (Reason: diarrhea) gabapentin 100 mg capsule 100 mg PO BID colestipol 1 gram tablet 2 g PO BID tamoxifen 20 mg tablet 20 mg PO DAILY famotidine 20 mg tablet 20 mg PO BID Changed oxycodone [OxyContin] 30 mg tablet,oral only,ext.rel.12 hr 30 mg PO Q8H Qty: 1 0RF Discontinued levothyroxine 50 mcg tablet 50 mcg PO DAILY Discharge Orders: Discharge Order (Routine); Ordered 05/25/24 Ordered By: Raj Morrow Diet: Low fat, low cholesterol Activity on Discharge: As tolerated Stand Alone Forms: Patient Portal Discharge page Print Language: Lithuanian Care Plan Goals: Low fat diet Stay well hydrated Decrease Oxycontin to 30 mg only (1 tab) and take it once or twice a day if needed Midodrine for the next week to support blood pressure Augmentin for 1 more week Zofran as needed for nausea Increase Levothyroxine dose to 75 mcg and repeat TSH testing in 4-6 weeks. Follow with PCP for further adjustments. Follow up with surgery next week after calling for appointment on [phone] Health Concerns: Cholecystitis Pneumonia Plan of Treatment: Antibiotics Surgery follow up Assessment: as above
--- NOTE | 2024-05-25 15:29 | MHC.CM.PN ---
PT CLEARED TO DC HOME TODAY WITH NO SERVICES VIA FAMILY TRANSPORT
== END 2024-05-25 16:50 | disposition home or self-care (01) ==
LOC: HO.ED 16:43 → HO.EDOVER 23:03 → HO.S3 05-23 11:10
PROVIDERS: Internal Medicine; Nurse Practitioner Family; Physician Assistant Medical; Admitting Provider Student in an Organized Health Care Education/Training Program; Emergency Provider Emergency Medicine; PCP Nurse Practitioner Family; Visit Provider Student in an Organized Health Care Education/Training Program
DX: K80.00 Calculus of gallbladder with acute cholecystitis without obstruction (principal); D61.810 Antineoplastic chemotherapy induced pancytopenia; C77.2 Secondary and unspecified malignant neoplasm of intra-abdominal lymph nodes; C78.89 Secondary malignant neoplasm of other digestive organs; J18.9 Pneumonia, unspecified organism; I95.9 Hypotension, unspecified; C50.919 Malignant neoplasm of unspecified site of unspecified female breast; C78.00 Secondary malignant neoplasm of unspecified lung; E03.9 Hypothyroidism, unspecified; G47.33 Obstructive sleep apnea (adult) (pediatric); T45.1X5A Adverse effect of antineoplastic and immunosuppressive drugs, initial encounter; Z20.822 Contact with and (suspected) exposure to COVID-19; Z90.13 Acquired absence of bilateral breasts and nipples; Z79.890 Hormone replacement therapy; Z87.891 Personal history of nicotine dependence; Z79.899 Other long term (current) drug therapy
CPT/HCPCS: 0241U; 36415; 71275; 74176; 76705; 80048; 80076; 82533; 83605; 83690; 83735; 84439; 84443; 84484; 85025; 85610; 87040; 93005; 99285; J0696; J1642; J2405; J2506; J2543; J3480; J7120; P9047; Q9967

== ENCOUNTER → 2024-05-22 13:53 | Outpatient (BNV) | payer OTHER, SELFPAY | PROVIDERS: Emergency Provider Emergency Medicine; PCP Nurse Practitioner Family; Visit Provider Internal Medicine | DX: R94.31 Abnormal electrocardiogram [ECG] [EKG] (principal); R07.9 Chest pain, unspecified | CPT/HCPCS: 93010 ==

== ENCOUNTER → 2024-05-22 16:26 | Outpatient (BNV) | payer OTHER, SELFPAY | PROVIDERS: Emergency Provider Emergency Medicine; PCP Nurse Practitioner Family; Visit Provider Student in an Organized Health Care Education/Training Program | DX: K80.00 Calculus of gallbladder with acute cholecystitis without obstruction (principal); C79.81 Secondary malignant neoplasm of breast; J18.9 Pneumonia, unspecified organism; G47.33 Obstructive sleep apnea (adult) (pediatric); E03.9 Hypothyroidism, unspecified | CPT/HCPCS: 99223; 99233; 99239; 99499 ==

== ENCOUNTER → 2024-05-22 17:20 | Outpatient (BNV) | payer OTHER, SELFPAY | PROVIDERS: Emergency Provider Emergency Medicine; PCP Nurse Practitioner Family; Visit Provider Radiology Diagnostic Radiology | DX: J18.9 Pneumonia, unspecified organism (principal); R59.0 Localized enlarged lymph nodes; K80.00 Calculus of gallbladder with acute cholecystitis without obstruction; K76.0 Fatty (change of) liver, not elsewhere classified | CPT/HCPCS: 71275; 76705 ==

== ENCOUNTER 2024-05-22 22:50 | Outpatient (BNV) | payer OTHER, SELFPAY | END 2024-05-23 11:27 | PROVIDERS: Admitting Provider Student in an Organized Health Care Education/Training Program; Emergency Provider Emergency Medicine; PCP Nurse Practitioner Family; Visit Provider Radiology Diagnostic Radiology | DX: J18.9 Pneumonia, unspecified organism (principal); J90 Pleural effusion, not elsewhere classified; R16.2 Hepatomegaly with splenomegaly, not elsewhere classified | CPT/HCPCS: 74176 ==

== ENCOUNTER → 2024-05-22 22:50 | Outpatient (BNV) | payer OTHER, SELFPAY | PROVIDERS: Admitting Provider Student in an Organized Health Care Education/Training Program; Emergency Provider Emergency Medicine; PCP Nurse Practitioner Family; Visit Provider Physician Assistant Surgical | DX: K80.00 Calculus of gallbladder with acute cholecystitis without obstruction (principal); C79.81 Secondary malignant neoplasm of breast | CPT/HCPCS: 99222; 99232; 99499 ==

== ENCOUNTER 2024-05-31 12:42 | Outpatient (AMB) | payer OTHER, SELFPAY ==
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
[2024-05-31 12:59] VITALS: BP 102/69; PULSE 88; BMI 33.6
--- OUTSIDE RECORDS SUMMARY | 2024-05-31 15:05 | XMS_ITS | Encounter Summary ---
Author Organization [facility], Address [address] [place] [address] Phone Care Team Providers Care Transmission Supervisor Name Role Phone Theron Richard NP Primary Care Provider [phone]- [phone] Encounter Details Date Type Department Care Team (Late st Contact Info) Description 07/19/2023 Documentation Only [facility] - V[facility] Access Center [address] [place] [address] [place] [phone] Liane Luis [address] [place] [phone] Social History Tobacco Use Types Packs/Day [...] on filedocumented in this encounter Care Teams Transmission Supervisor Relationship Specialty Start Date End Date Theron Richard NP [address] [place] [address] PCP - General Nurse Practitioner 07/12/23 documented as of this encounter
--- OUTSIDE RECORDS SUMMARY | 2024-05-31 15:05 | XMS_ITS | Encounter Summary ---
Author Organization [facility] Address [address] [facility] 7t [place] [address] Care Team Providers Care Security Architect Name Role Phone Unavailable Primary Care Provider Unavailabl e Reason for Visit * Reason Onset Date Comments appt cancer patient 05/09/2024 Encounter Details Date Type Department Care Team (Late st Contact Info) Description 05/09/2024 Telephone [facility] [address] [place], [place] [phone] Jyoti Rojas DDS [address] [place] [address] [place], [place] [phone] appt cancer patient Social History Tobacco Use [...]
--- OUTSIDE RECORDS SUMMARY | 2024-05-31 15:05 | XMS_ITS | Clinical Summary ---
Author Organization [employer] Address [address] [facility] 7t [place] [address] Care Team Providers Care Informatics Manager Name Role Phone Unavailable Primary Care Provider Unavailabl e Encounters Date Type Department Care Team Description 05/09/2024 Telephone [facility] ADULT DENTAL [address] [place] [address] Jyoti Rojas DDS apppraneeth cancer patient from [...]
--- OUTSIDE RECORDS SUMMARY | 2024-05-31 15:05 | XMS_ITS | Encounter Summary ---
Author Organization [facility] Address [address] [facility] 7 [place] [address] Care Team Providers Care Griddle Cook Name Role Phone Unavailable Primary Care Provider [...]
--- OUTSIDE RECORDS SUMMARY | 2024-05-31 15:05 | XMS_ITS | Clinical Summary ---
Author Organization [facility], Address [address] [place] [address] Phone Care Team Providers Care Warp Hauler Name Role Phone Theron Richard COURT ASSISTANT Primary Care Provider +1- [phone] Allergies No known active allergies Medications acetaminophen [...] series) 02/03 Influenza Vaccine (#1) 2023 Insurance [employer] MEDICAID Care Teams Warp Hauler Relationship Specialty Start Date End Date Theron Richard NP [address] [place], [place] PCP - General Nurse Practitioner 07/12/23
== END 2024-05-31 13:12 | disposition home or self-care (01) ==
PROVIDERS: PCP Nurse Practitioner Family; Visit Provider Surgery
DX: C79.81 Secondary malignant neoplasm of breast (principal); K80.00 Calculus of gallbladder with acute cholecystitis without obstruction
CPT/HCPCS: 99213

== ENCOUNTER → 2024-05-31 12:42 | Outpatient (BNVA) | payer OTHER, SELFPAY | PROVIDERS: PCP Nurse Practitioner Family; Visit Provider Surgery | DX: K80.00 Calculus of gallbladder with acute cholecystitis without obstruction (principal); C79.81 Secondary malignant neoplasm of breast | CPT/HCPCS: 99212 ==

== ENCOUNTER → 2024-06-05 12:45 | Outpatient (BNV) | payer OTHER, SELFPAY | PROVIDERS: PCP Nurse Practitioner Family; Visit Provider Internal Medicine Medical Oncology | DX: C50.811 Malignant neoplasm of overlapping sites of right female breast (principal) | CPT/HCPCS: 99204 ==

== ENCOUNTER 2024-07-04 08:51 | Outpatient (REF) | payer OTHER, SELFPAY ==
--- NOTE | ~2024-07-04 | US_ITS ---
EXAMINATION: US DIAGNOSTIC ULTRASOUND BREAST, RIGHT CLINICAL INFORMATION: Right chest wall palpable lump at 9:00. History of right breast cancer in 2020 and 2021 status post bilateral mastectomy. History of recurrent right chest wall malignancy with metastatic disease in 2023. Patient did not have surgery after 2023 patient received chemotherapy.. COMPARISON: Comparison is made with relevant prior imaging. TECHNIQUE: Ultrasound of the breast is performed with real-time moore scale imaging and color Doppler. FINDINGS: Targeted color Doppler ultrasound scanning from 8 11:00 demonstrates normal axillary and chest wall subcutaneous tissue. 10:00 9 cm from the nipple adjacent to a postsurgical scar there is a hypoechoic oval heterogeneous area measuring approximately 10 x 6 x 9 mm. There is no internal vascular flow. It is questionable whether this area represents postsurgical scarring, solid mass or previously biopsied area which is now significantly smaller than comparisons to ultrasounds from outside institution in 2023. Results discussed with the patient and the patient's oncologist Dr. Maharaj US/US breast RT limited IMPRESSION: Post surgical scar tissue versus solid mass at 10:00 9 cm from the nipple. Patient has known metastatic breast cancer with right chest wall recurrence. Patient is under the care of oncology for management These findings and recommendations were discussed with the Patient and Dr Maharaj. This area is amenable to biopsy if clinically indicated or follow-up if clinically indicated. ASSESSMENT: BI-RADS 4: Suspicious RECOMMENDATION: Recommend continued clinical managment with oncology. This mass is amendable to biopsy if clinically indicated versus followup. This patient's information was entered into a reminder system with a target due date for their next mammogram. Electronically signed by: Kenia Lema DO 07/08/2024 08:21 PM EDT
--- OUTSIDE RECORDS SUMMARY | 2024-07-04 09:31 | XMS_ITS | Clinical Summary ---
Author Organization [facility], Address [address] [place] [address] Phone Care Team Providers Care Sheet Writer Name Role Phone Theron Richard ELEMENTARY LIBRARIAN Primary Care Provider +1- [phone] Allergies No known active allergies Medications acetaminophen [...] series) 02/03 Influenza Vaccine (#1) 2023 Insurance [employer] MEDICAID Care Teams Sheet Writer Relationship Specialty Start Date End Date Theron Richard NP [address] [place], [place] PCP - General Nurse Practitioner 07/12/23
--- OUTSIDE RECORDS SUMMARY | 2024-07-04 09:31 | XMS_ITS | Encounter Summary ---
Author Organization [facility], Address [address] [place] [address] Phone Care Team Providers Care Brick Setter Operator Name Role Phone Theron Richard NP Primary Care Provider +1- [phone] Encounter Details Date Type Department Care Team (Late st Contact Info) Description 07/19/2023 Documentation Only [facility] - [facility] Access Center [address] [place] [address] [place] [phone] [address] [place] [phone] Social History Tobacco Use Types Packs/Day [...] on filedocumented in this encounter Care Teams Brick Setter Operator Relationship Specialty Start Date End Date Theron Richard NP [address] [place] [address] PCP - General Nurse Practitioner 07/12/23 documented as of this encounter
--- OUTSIDE RECORDS SUMMARY | 2024-07-04 09:31 | XMS_ITS | Encounter Summary ---
Author Organization [employer] [facility] Address [address] [facility] 7 [place] [address] Care Team Providers Care Blind Hanger Name Role Phone Unavailable Primary Care Provider [...]
--- OUTSIDE RECORDS SUMMARY | 2024-07-04 09:31 | XMS_ITS | Clinical Summary ---
Author Organization [employer] Address [address] [facility] 7t [place] [address] Care Team Providers Care Laminating Machine Tender Name Role Phone Unavailable Primary Care Provider Unavailabl e Encounters Date Type Department Care Team Description 05/09/2024 Telephone [facility] ADULT DENTAL [address] [place] [address] Jyoti Rojas DDS apppraneeth cancer patient from [...]
--- OUTSIDE RECORDS SUMMARY | 2024-07-04 09:31 | XMS_ITS | Encounter Summary ---
Author Organization [employer] [facility] Address [address] [facility] 7t [place] [address] Care Team Providers Care Technology Services Manager Name Role Phone Unavailable Primary Care Provider Unavailabl e Reason for Visit * Reason Onset Date Comments appt cancer patient 05/09/2024 Encounter Details Date Type Department Care Team (Late st Contact Info) Description 05/09/2024 Telephone [facility] [address] [place], [place] [phone] Jyoti Rojas DDS [address] [place], [place] [phone] appt cancer patient Social History Tobacco Use [...]
== END 2024-07-04 08:52 | disposition home or self-care (01) ==
LOC: HO.MAMMO 08:51
PROVIDERS: PCP Nurse Practitioner Family; Visit Provider Internal Medicine Medical Oncology
DX: Z85.3 Personal history of malignant neoplasm of breast (principal); Z98.890 Other specified postprocedural states; Z90.11 Acquired absence of right breast and nipple
CPT/HCPCS: 76642

== ENCOUNTER → 2024-07-04 09:00 | Outpatient (BNV) | payer OTHER, SELFPAY | PROVIDERS: PCP Nurse Practitioner Family; Visit Provider Internal Medicine | DX: R22.2 Localized swelling, mass and lump, trunk (principal); Z85.3 Personal history of malignant neoplasm of breast | CPT/HCPCS: 76642 ==

== ENCOUNTER 2024-07-09 09:23 | Outpatient (AMB) | payer OTHER, SELFPAY ==
--- NOTE | 2024-07-09 09:40 | A.OFFVIS_ITS ---
Vital Signs 07/09/24 09:41 Height 5 ft 5 in Weight 202 lb BMI 33.6 BP 112/70 Blood Pressure Location Rt brachial Position Sitting Pulse 83 Pulse Source Pulse Oximeter Pulse Oximetry (%) 99 Oxygen Delivery Method Room Air Intake Visit Reasons: FOLLOW UP/REF BY [facility] Chef Broiler Or Fry Services: Chef Broiler Or Fry Present Chef Broiler Or Fry Name: #[id number] Information Interpreted: non-clinical & clinical Allergies No Known Allergies Allergy (Verified 07/09/24 09:42) Medication List - Last Reconciled 07/09/24 by Sumaya Dangelo, SALESPERSON [employer] cholecalciferol (vitamin D3) (Vitamin D3) 125 mcg PO DAILY colestipol 2 grams PO BID famotidine 20 mg PO BID gabapentin 100 mg PO BID levothyroxine 100 mcg PO DAILY levothyroxine 75 mcg PO DAILY loperamide 2 mg PO Q4H PRN midodrine 2.5 mg (1/2 x 5 mg) PO TID ondansetron 4 mg PO Q8H PRN oxycodone 5 mg PO Q8H PRN oxycodone 5 mg PO Q8H PRN oxycodone ER (OxyContin) 30 mg PO Q8H oxycodone ER (OxyContin) 20 mg PO Q12H oxycodone-acetaminophen 7.5-325 mg 2 tabs PO Q4H PRN tamoxifen 20 mg PO DAILY HPI Comments Details: Stefani is very pleasant 44 years old female who presents in my office with complains on pain was the chest with radiation to the back of the area. She reports that this pain started about 1 year ago. She was diagnose by bilateral breast breast cancer in 10/02/2021. She received bilateral mastectomy. She has recurrent cancer with metastasis in the lungs. Last chemotherapy she had in 2022. She is currently taking Tylenol live in oxycodone. She reports no help from oxycodone. She takes also Tylenol to control her pain. In 2023 recurrent intraductal invasive carcinoma was found on the biopsy after that patient went for MRI of the chest which showed light touch subpectoral chest wall mass consistent with tumor recurrence. Supraclavicular and extensive admitted the us tunnel and healer adenopathy. Possible upper lung nodule. After that CT of the chest was done in 06/30/2023. Increased pulmonary nodules as well as mid sternal and healer adenopathy. Enlarged upper subpectoral lymph nodes extending to the right supraclavicular and axillary adenopathy. There is also upper abdominal adenopathy. She also underwent bone scan and she does not have bone metastasis. Brain MRI is negative for recurrence. In October of 2023 she was treated with 5 fraction of radiation to the right side. She was given a total dose of 2000 see GY in February of [address] of the chest to see response to the treatment. This showed decrease in the lung nodules decreased mediastinal adenopathy decreased inferior splenic Sekou hypodensity decreased right pectoral mass decrease insides of upper abdominal nodules. Patient was found to have significant pneumonitis. She developed cholecystitis in May of 2024. Dr. Perkins was considering to perform eventually cholecystectomy for this patient. She also is suffering from hypothyroidism, her levothyroxine dose was increased to 100 mg q.d.. She is currently on OxyContin 20 mg b.i.d. as well as oxycodone 5 mg q.8 hours p.r.n.. [facility] Medical History Obstructive sleep apnea Metastatic malignant neoplasm to breast Hypothyroidism Surgical History Hx of bilateral mastectomy Hx of appendectomy Hx of hernia repair Family History Mother Diabetes Hypertension Father Cancer Social History (Updated 06/05/24 @ 13:19 by Fawn Ponce) Household Members: Spouse and Family Housing: Apartment Do you presently have visiting nurse or other home services: No Alcohol intake: former Patient Tobacco Use Status: Former Tobacco user Tobacco use type: Cigarette service: No Current occupational status: unemployed Review of Systems Const Reports anorexia, Reports body aches, Reports fatigue, Reports lethargy, Reports malaise, Reports poor appetite and Reports weakness Card Reports no additional complaints Resp Reports no additional complaints GI Reports abdominal pain and Reports belching Reports no additional complaints Musc Reports as per HPI Neuro Reports weakness Psych Reports depression Endo Reports fatigue Physical Exam Vital Signs: Last Vital Signs Pulse 83 07/09/24 09:41 BP 112/70 07/09/24 09:41 Pulse Ox 99 07/09/24 09:41 Oxygen Delivery Method Room Air 07/09/24 09:41 BMI result Body Mass Index 33.6 Const General: cooperative, alert and awake Nutritional Appearance: average body habitus Orientation/consciousness: oriented to person, oriented to place, oriented to time and patient oriented x3 Limitations: no limitations Chest Chest palpation & inspection: abnormal inspection of the chest and abnormal inspection of the chest Breast/axilla inspection: inspection of breasts abnormal and abnormal inspection of the breast Breast/axilla palpation: abnormal palpation of the breast (Tenderness on palpation of the area of the breast.) Resp Effort & Inspection: normal respiratory effort, able to speak in complete sentences, normal respiratory pattern, no audible wheezes, no cough, respiratory effort not decreased, no grunting, not labored and no nasal flaring Cardio Jugular venous distension: no JVD Back/Spine/Pelvis Other: Tenderness on projection in the posterior thoracic spine. Neuro General: oriented to person, oriented to place, oriented to time and patient oriented x3 Assessment & Plan Assessment & Plan (1) Cancer of right breast, stage 4: Code(s): C50.911 - Malignant neoplasm of unspecified site of right female breast Category: Medical (2) Hypothyroidism: Code(s): E03.9 - Hypothyroidism, unspecified Category: Medical (3) Chronic pain syndrome: Code(s): G89.4 - Chronic pain syndrome Category: Medical (4) Metastatic cancer to lung: Code(s): C78.00 - Secondary malignant neoplasm of unspecified lung Category: Medical Plan This patient is suffering from severe intractable cancer pain. The management of this patient would depend on whether she has more than 6 months to leave or not. Possibility exists if her span is more than 6 months to treat her pain with intra thecal pain pump. Alternatively if her lifespan is shorter than 6 m [facility] I could take over of her prescription of opioids and start treating her pain with combination of the opioid agonists. Patient Instructions: I here by testify that I spent 45 minutes in conversation with this patient as well as planning her care evaluating her prior records and organizing this note. bilingual interpreter from [employer] [id number] was helping to maintain this conversation in Frisian today. Coding Level of Care Code New Pt Level 4 (32862) Diagnoses Cancer of right breast, stage 4 C50.911 Hypothyroidism E03.9 Chronic pain syndrome G89.4 Metastatic cancer to lung C78.00
[2024-07-09 09:41] VITALS: BP 112/70; PULSE 83; O2SAT 99; BMI 33.6
--- OUTSIDE RECORDS SUMMARY | 2024-07-09 10:31 | XMS_ITS | Encounter Summary ---
Author Organization [facility] [facility] Address [address] 7t [place] [address] Care Team Providers Care Atm Mechanic Name Role Phone Unavailable Primary Care Provider Unavailabl e Reason for Visit * Reason Onset Date Comments appt cancer patient 05/09/2024 Encounter Details Date Type Department Care Team (Late st Contact Info) Description 05/09/2024 Telephone [facility] [address] [place], [place] [phone] Jyoti Rojas DDS [address], [place] [phone] appt cancer patient Social History Tobacco Use [...]
--- OUTSIDE RECORDS SUMMARY | 2024-07-09 10:32 | XMS_ITS | Encounter Summary ---
Author Organization [facility] [facility] Address [address] [facility] 7 [place] [address] Care Team Providers Care Project Financial Analyst Name Role Phone Unavailable Primary Care Provider [...]
--- OUTSIDE RECORDS SUMMARY | 2024-07-09 10:32 | XMS_ITS | Clinical Summary ---
Author Organization [facility], Address [address] [place] [address] Phone Care Team Providers Care Gas Welder Apprentice Name Role Phone Theron Richard TAPPET ADJUSTER Primary Care Provider [phone]- [phone] Allergies No known active allergies Medications acetaminophen [...] - 19+ 3-dose series) 02/03 Influenza Vaccine (Season Ended) 2024 Insurance [employer] Care Teams Gas Welder Apprentice Relationship Specialty Start Date End Date Theron Richard NP [address] [place], [place] PCP - General Nurse Practitioner 07/12/23
--- OUTSIDE RECORDS SUMMARY | 2024-07-09 10:32 | XMS_ITS | Clinical Summary ---
Author Organization [employer] Address [address] [facility] 7t [place] [address] Care Team Providers Care Yard Worker Name Role Phone Unavailable Primary Care Provider Unavailabl e Encounters Date Type Department Care Team Description 05/09/2024 Telephone [facility] ADULT DENTAL [address] [place] [address] Jyoti Rojas DDS apppraneeth cancer patient from [...] this topic Meningococcal Vaccine Aged Out No otne jodi eligible based on patient's age to [...]
--- OUTSIDE RECORDS SUMMARY | 2024-07-09 10:32 | XMS_ITS | Encounter Summary ---
Author Organization [facility], Address [address] [place] [address] Phone Care Team Providers Care Etiologist Name Role Phone Theron Richard NP Primary Care Provider [phone]- [phone] Encounter Details Date Type Department Care Team (Late st Contact Info) Description 07/19/2023 Documentation Only [facility] - V[facility] Access Center [address] [place] [address] [place] [phone] Liane Luis [address] [place] [phone] Social History Tobacco Use Types Packs/Day [...] on filedocumented in this encounter Care Teams Etiologist Relationship Specialty Start Date End Date Theron Richard NP [address] [place] [address] PCP - General Nurse Practitioner 07/12/23 documented as of this encounter
== END 2024-07-09 09:56 | disposition home or self-care (01) ==
LOC: HO.PMC 09:23
PROVIDERS: PCP Nurse Practitioner Family; Visit Provider Anesthesiology
DX: G89.4 Chronic pain syndrome (principal); E03.9 Hypothyroidism, unspecified; C50.911 Malignant neoplasm of unspecified site of right female breast; C78.00 Secondary malignant neoplasm of unspecified lung
CPT/HCPCS: 99204

== ENCOUNTER → 2024-07-09 09:23 | Outpatient (BNVA) | payer OTHER, SELFPAY | PROVIDERS: PCP Nurse Practitioner Family; Visit Provider Anesthesiology | DX: C50.911 Malignant neoplasm of unspecified site of right female breast (principal); E03.9 Hypothyroidism, unspecified; G89.4 Chronic pain syndrome; C78.00 Secondary malignant neoplasm of unspecified lung | CPT/HCPCS: 99202 ==

== ENCOUNTER 2024-07-20 08:57 | Outpatient (AMB) | payer OTHER, SELFPAY ==
[2024-07-20 09:04] VITALS: BP 84/62; PULSE 78; O2SAT 96; BMI 33.7
--- NOTE | 2024-07-20 09:04 | A.OFFVIS_ITS ---
Vital Signs 07/20/24 09:04 Height 5 ft 5 in Weight 202 lb 13.204 oz BMI 33.7 BP 84/62 L Blood Pressure Location Lt brachial Position Sitting Pulse 78 Pulse Source Pulse Oximeter Pulse Oximetry (%) 96 Oxygen Delivery Method Room Air Intake Visit Reasons: Elevated TSH Intake Note: Patient present today to re-establish care for Elevated TSH. Board Member Required: Yes Board Member Language: Marketing Sales Supervisor Services: Board Member Present Board Member Name: Cyrus [id number] Information Interpreted: non-clinical & clinical Accompanied by: Self / Same As Patient Allergies No Known Allergies Allergy (Verified 07/20/24 09:08) Medication List - Last Reconciled 07/20/24 by Evelyne Santiago MD cholecalciferol (vitamin D3) (Vitamin D3) 125 mcg PO DAILY colestipol 2 grams PO BID famotidine 20 mg PO BID gabapentin 100 mg PO BID levothyroxine 100 mcg PO DAILY loperamide 2 mg PO Q4H PRN midodrine 2.5 mg (1/2 x 5 mg) PO TID ondansetron 4 mg PO Q8H PRN oxycodone 5 mg PO Q8H PRN oxycodone ER (OxyContin) 20 mg PO Q12H oxycodone-acetaminophen 7.5-325 mg 2 tabs PO Q4H PRN tamoxifen 20 mg PO DAILY HPI Comments Details: 44-year-old female here today for follow up of hypothyroidism. She was following with Dr. Gomez, last visit was July 2022. Otherwise history significant for metastatic breast cancer, with a history of right infiltrative ductal carcinoma, diagnosed in 2020, status post neoadjuvant chemotherapy, bilateral mastectomy in 2020 with metastatic cancer to the lung diagnosed in 2023 status post radiation therapy, on treatment with trastuzumab deruxtecan and tamoxifen. Following with Dr. Maharaj. Treated with pembrolizumab started 08/05/2023. trastuzumab diruxetecan started 12/16/2023. She was diagnosed with hypothyroidism in 2018 and started on levothyroxine apparently not until last 2023. Was on a dose of 50 initially now uptitrated to 100 mcg daily. 05/25/2024: TSH 46.23, free T4 0.52 06/05/2024: TSH 43.98, free T4 0.48 06/28/2024: Levothyroxine increased to 100 mcg daily by oncologist. Patient currently denies heat or cold intolerance, hair loss,, anxiety, weight changes, mood changes, changes in appearance of eyes or vision changes, tremors, increased diaphoresis or dry skin. ? Reports some intermittent palpitations. Reports intermittent diarrhea and constipation Complains of fatigue. Some chronic intermittent difficulty swallowing for 4-5 months. Reports some voice hoarseness. Patient did receive radiation therapy to the right chest for metastatic breast cancer to the lung (10/18/2023 through 10/28/2023: She was treated with 5 fractions of radiation to the right side. She was given a total dose of 05/09/1999 cGy). Denies having ever used lithium, amiodarone or biotin supplements. Patient denies any family history of thyroid cancer . Mother : thyroid disease Physical exam General: sitting comfortably in no acute distress HEENT: normocephalic/atraumatic, Neck: supple, symmetrical, no thyromegaly , no dorsocervical or supraclavicular fat pads Cardiac: normal heart sounds Pulm: normal breath sounds B/L, no added breath sounds Abd: not distended, no tenderness Extremities: no edema, no signs of myxedema Laboratory Tests 07/21/22 05/25/24 06/05/24 16:10 05:59 14:22 TSH 1.28 46.23 H 43.98 H Free T4 0.88 0.52 L 0.48 L Thyroid Peroxidase Ab 177 H PFSH Medical History Obstructive sleep apnea Metastatic malignant neoplasm to breast Hypothyroidism Surgical History Hx of bilateral mastectomy Hx of appendectomy Hx of hernia repair Family History Mother Diabetes Hypertension Father Cancer Social History (Updated 06/05/24 @ 13:19 by Fawn Ponce) Household Members: Spouse and Family Housing: Apartment Do you presently have visiting nurse or other home services: No Alcohol intake: former Patient Tobacco Use Status: Former Tobacco user Tobacco use type: Cigarette service: No Current occupational status: unemployed Assessment & Plan Assessment & Plan (1) Hypothyroidism: Code(s): E03.9 - Hypothyroidism, unspecified Category: Medical Qualifiers: 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 Oncologist appropriately increased dose of levothyroxine to 100 mcg daily from 75 mcg daily. She would need repeat labs in 6 weeks from the last dose change which would be something around August 09. Plan: -ordered TSH, free T4 to be done in 3 weeks from now sometime around 08/09/2024 -follow up in 4 weeks to discuss results -could levothyroxine 100 mcg daily. Plan I spent 30 minutes in reviewing the record, seeing the patient and documenting in the medical record. 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
--- OUTSIDE RECORDS SUMMARY | 2024-07-20 09:23 | XMS_ITS | Encounter Summary ---
Author Organization [employer] [facility] Address [address] [facility] 7t [place] [address] Care Team Providers Care Tower Control Operator Name Role Phone Unavailable Primary Care Provider Unavailabl e Reason for Visit * Reason Onset Date Comments appt cancer patient 05/09/2024 Encounter Details Date Type Department Care Team (Late st Contact Info) Description 05/09/2024 Telephone [facility] [address] [place], [place] [phone] Jyoti Rojas DDS [address] [place], [place] [phone] appt cancer patient Social History Tobacco Use [...]
--- OUTSIDE RECORDS SUMMARY | 2024-07-20 09:23 | XMS_ITS | Encounter Summary ---
Author Organization [facility], Address [address] [place] [address] Phone Care Team Providers Care Grain Mixer Name Role Phone Theron Richard NP Primary Care Provider [phone]- [phone] Encounter Details Date Type Department Care Team (Late st Contact Info) Description 07/19/2023 Documentation Only [facility] - Vascular Access Center [address] [place] [address] [place] [phone] Liane Luis [address] [place] [phone] Social History Tobacco Use Types Packs/Day [...] on filedocumented in this encounter Care Teams Grain Mixer Relationship Specialty Start Date End Date Theron Richard NP [address] [place] [address] PCP - General Nurse Practitioner 07/12/23 documented as of this encounter
--- OUTSIDE RECORDS SUMMARY | 2024-07-20 09:23 | XMS_ITS | Encounter Summary ---
Author Organization [facility] [facility] Address [address] [facility] 7 [place] [address] Care Team Providers Care Cop Name Role Phone Unavailable Primary Care Provider [...]
--- OUTSIDE RECORDS SUMMARY | 2024-07-20 09:23 | XMS_ITS | Clinical Summary ---
Author Organization [facility], Address [address] [place] [address] Phone Care Team Providers Care Wheel Assembler Name Role Phone Theron Richard MARINE WELDER Primary Care Provider [phone]- [phone] Allergies No known active allergies Medications acetaminophen [...] Due Date Last Done Comments Pneumococcal Vaccine: Peds ( 0 to 5 Years) and At-Risk Patients (6 to 49 Years) (1 of 2 - PCV) 02/03/1986 Hepatitis B Vaccine (1 of 3 - 19+ 3-dose series) 02/03 Influenza Vaccine (Season Ended) 2024 Insurance [facility] Medicaid Care Teams Wheel Assembler Relationship Specialty Start Date End Date Theron Richard NP [address] [place], [place] PCP - General Nurse Practitioner 07/12/23
--- OUTSIDE RECORDS SUMMARY | 2024-07-20 09:23 | XMS_ITS | Clinical Summary ---
Author Organization [employer] Address [address] [facility] 7t [place] [address] Care Team Providers Care Ice Cream Freezer Helper Name Role Phone Unavailable Primary Care Provider Unavailabl e Encounters Date Type Department Care Team Description 05/09/2024 Telephone [facility] ADULT DENTAL [address] [place] [address] Jyoti Rojas DDS apppraneeth cancer patient from [...]
== END 2024-07-20 09:27 | disposition home or self-care (01) ==
LOC: HO.ENCR 08:57
PROVIDERS: PCP Nurse Practitioner Family; Visit Provider Student in an Organized Health Care Education/Training Program
DX: E06.3 Autoimmune thyroiditis (principal)
CPT/HCPCS: 99214

== ENCOUNTER → 2024-07-20 08:57 | Outpatient (BNVA) | payer OTHER, SELFPAY | PROVIDERS: PCP Nurse Practitioner Family; Visit Provider Student in an Organized Health Care Education/Training Program | DX: E06.3 Autoimmune thyroiditis (principal) | CPT/HCPCS: 99212 ==

== ENCOUNTER 2024-08-16 08:13 | Outpatient (REF) | payer OTHER, SELFPAY ==
--- OUTSIDE RECORDS SUMMARY | 2024-08-16 08:18 | XMS_ITS | Clinical Summary ---
Author Organization [facility], Address [address] [place] [address] Phone Care Team Providers Care Mold Designer Name Role Phone Theron Richard BUNDLE CLERK Primary Care Provider [phone]- [phone] Allergies No known active allergies Medications acetaminophen [...] Health Maintenance Due Date Last Done Comments Hepatitis B Vaccine (1 of 3 - 19+ 3-dose series) 02/03 Pneumococcal Vaccine: Peds ( 0 to 5 Years) and At-Risk Patients (6 to 49 Years) (1 of 2 - PCV) 02/03/1999 Influenza Vaccine (Season Ended) 2024 Insurance [facility] Medicaid Care Teams Mold Designer Relationship Specialty Start Date End Date Theron Richard NP [address] [place], [place] PCP - General Nurse Practitioner 07/12/23
--- OUTSIDE RECORDS SUMMARY | 2024-08-16 08:18 | XMS_ITS | Encounter Summary ---
Author Organization [employer] Address [address] [facility] 7t [place] [address] Care Team Providers Care Ceramic Research Engineer Name Role Phone Unavailable Primary Care Provider Unavailabl e Reason for Visit * Reason Onset Date Comments appt cancer patient 05/09/2024 Encounter Details Date Type Department Care Team (Late st Contact Info) Description 05/09/2024 Telephone [facility] ADULT [facility] [address] [place], [place] [phone] Jyoti Rojas DDS [address] [place], [place] [phone] appt cancer patient Social History Tobacco Use [...]
--- OUTSIDE RECORDS SUMMARY | 2024-08-16 08:18 | XMS_ITS | Clinical Summary ---
Author Organization [employer] Address [address] [facility] 7t [place] [address] Care Team Providers Care Bottle Assembler Name Role Phone Unavailable Primary Care Provider Unavailabl e Social History Tobacco Use Types Packs/Day Years [...] 02/03/2010 HPV/Cotest 02/03/2010 Mammogram 2020 COVID-19 Vaccine ( - 2023-2 5 season) 2023 Influenza Vaccine [...]
--- OUTSIDE RECORDS SUMMARY | 2024-08-16 08:18 | XMS_ITS | Encounter Summary ---
Author Organization [facility], Address [address] [place] [address] Phone Care Team Providers Care Activity Therapist Name Role Phone Theron Richard NP Primary Care Provider [phone]- [phone] Encounter Details Date Type Department Care Team (Late st Contact Info) Description 07/19/2023 Documentation Only [facility] - Vascular Access Center [address] [place] [address] [place] [phone] Liane Luis [address] [place] [phone] Social History Tobacco Use Types Packs/Day [...] on filedocumented in this encounter Care Teams Activity Therapist Relationship Specialty Start Date End Date Theron Richard NP [address] [place] [address] PCP - General Nurse Practitioner 07/12/23 documented as of this encounter
--- OUTSIDE RECORDS SUMMARY | 2024-08-16 08:18 | XMS_ITS | Clinical Summary ---
Author Organization [address] [place] [address] Address [address] [place] [address] Phone Care Team Providers Care Correctional Medicine Physician Name Role Phone Richar Montano MD Primary Care Provider [phone] Surgical History Surgery Date Site/Laterality Comments APPENDECTOMY PROCEDURE: ID APPENDECTOMY Social History Tobacco Use Types Packs/Day Years Used Date Smoking Tobacco: Never Smokeless Tobacco: Never Alcohol Use Standard Drinks/Week Comments Yes 0 (1 standard drink = 0.6 oz pur e alcohol) Comments Unknown Sex and Gender Information Value Date Recorded Sex Assigned at Not on file Legal Sex Female 4:29 AM EST Gender Identity Not on file Sexual Orientation Not on file Obstetrics History Plan of Treatment Health Maintenance Due Date Last Done Comments Breast Cancer Screening 1980 DTaP,Tdap,and Td Vaccines (1 - Tdap) 02/03/1999 Hepatitis B Vaccines (1 of 3 - 19+ 3-dose series) 02/03/1999 Cervical Cancer Screening: P ap Smear 02/03/2001 COVID-19 Vaccine (2023-2 5 season) 2023 Depression Screening 08/07/2024 HIV Screening 08/07/2024 Hepatitis C Screening 08/07/2024 Social Influencers of Health Screening 08/07/2024 Influenza Vaccine (Season Ended) 2024 HIB Vaccines Aged Out No longer eligi [...] on patient's age to complete this topic MMR Vaccines Aged Out No longer eligi ble based on patient's age to complete this topic Meningococcal ACWY Vaccine Aged Out N o longer eligible based on patient's age to complete this topic Meningococcal B Vaccine Aged Out No l onger eligible based on patient's age to complete this topic Pneumococcal Vaccine: Pediat rics (0 to 5 Years) and At-Risk Patients (6 to 64 Years) Aged Out No longer eligible b ased on patient's age to complete this topic RSV Immunization Patients Un donnie 20 months Aged Out No longer eligible b ased on patient's age to complete this topic Varicella Vaccines Aged Out No longer eligible based on patient's age to complete this topic Insurance [employer] AD[employer]ANT[employer] MEDICAID - [place] Care Teams Correctional Medicine Physician Relationship Specialty Start Date End Date Richar Montano MD [address] [address] PCP - General Internal Medicine 11/09/19
--- OUTSIDE RECORDS SUMMARY | 2024-08-16 08:18 | XMS_ITS | Encounter Summary ---
Author Organization [employer] [facility] Address [address] [place] [address] Care Team Providers Care Channel Sales Manager Name Role Phone Unavailable Primary Care Provider Unavailabl e Encounter Details Date Type Department Care Team (Latest Contact Info) Description 12/26/2018 Abstract HHC CONVERSIONS Dental, Provider, DDS Social History Tobacco [...]
[2024-08-16 11:38] LABS: Thyroid Stimulating Hormone 21.21 uIU/mL (0.32-4.0)
== END 2024-08-16 08:14 | disposition home or self-care (01) ==
LOC: HO.LAB 08:13
PROVIDERS: Visit Provider Student in an Organized Health Care Education/Training Program
DX: E06.3 Autoimmune thyroiditis (principal)
CPT/HCPCS: 36415; 84439; 84443

== ENCOUNTER 2024-08-31 08:58 | Outpatient (AMB) | payer OTHER, SELFPAY ==
[2024-08-31 09:02] VITALS: BP 120/72; PULSE 72; O2SAT 96; BMI 34.1
--- NOTE | 2024-08-31 09:02 | A.OFFVIS_ITS ---
Vital Signs 08/31/24 09:02 Height 5 ft 5 in Weight 205 lb 0.478 oz BMI 34.1 BP 120/72 Blood Pressure Location Rt brachial Position Sitting Pulse 72 Pulse Source Pulse Oximeter Pulse Oximetry (%) 96 Oxygen Delivery Method Room Air Intake Visit Reasons: Hypothyroidism Intake Note: Patient present today for Hypothyroidism office visit. Print Graphic Designer Required: Yes Print Graphic Designer Language: Drawing Checker Services: Print Graphic Designer Present (Mobile Game Day) Print Graphic Designer Name: Fortunato #[id number] Accompanied by: Daughter Allergies No Known Allergies Allergy (Verified 08/31/24 09:04) Medication List - Last Reconciled 08/31/24 by Evelyne Santiago MD cefuroxime axetil 500 mg PO Q12H cholecalciferol (vitamin D3) (Vitamin D3) 125 mcg PO DAILY colestipol 2 grams PO BID famotidine 20 mg PO BID gabapentin 100 mg PO BID levothyroxine 112 mcg PO DAILY 30 days loperamide 2 mg PO Q4H PRN midodrine 2.5 mg (1/2 x 5 mg) PO TID ondansetron 4 mg PO Q8H PRN oxycodone 5 mg PO Q6H PRN oxycodone ER (OxyContin) 30 mg PO Q12H tamoxifen 20 mg PO DAILY HPI Comments Details: 44-year-old female here today for follow up of hypothyroidism. HPI Otherwise history significant for metastatic breast cancer, with a history of right infiltrative ductal carcinoma, diagnosed in 2020, status post neoadjuvant chemotherapy, bilateral mastectomy in 2020 with metastatic cancer to the lung diagnosed in 2023 status post radiation therapy, on treatment with trastuzumab deruxtecan and tamoxifen. Following with Dr. Maharaj. Treated with pembrolizumab started 08/05/2023. trastuzumab diruxetecan started 12/16/2023. She was diagnosed with hypothyroidism in 2019 and started on levothyroxine apparently not until last year 2023. Was on a dose of 50 initially now uptitrated to 100 mcg daily. 05/25/2024: TSH 46.23, free T4 0.52 06/05/2024: TSH 43.98, free T4 0.48 06/28/2024: Levothyroxine increased to 100 mcg daily by oncologist. Patient currently denies heat or cold intolerance, hair loss,, anxiety, weight changes, mood changes, changes in appearance of eyes or vision changes, tremors, increased diaphoresis or dry skin. ? Reports some intermittent palpitations. Reports intermittent diarrhea and constipation Complains of fatigue. Some chronic intermittent difficulty swallowing for 4-5 months. Reports some voice hoarseness. Patient did receive radiation therapy to the right chest for metastatic breast cancer to the lung (10/18/2023 through 10/28/2023: She was treated with 5 fractions of radiation to the right side. She was given a total dose of 05/09/1999 cGy). Denies having ever used lithium, amiodarone or biotin supplements. Patient denies any family history of thyroid cancer . Mother : thyroid disease Interval history 08/16/2024: TSH: 21.21, free T4 1 Levothyroxine dose increased from 100 to 112 mcg daily Reports still has tiredness Hasnt had periods since 2021. Physical exam General: sitting comfortably in no acute distress HEENT: normocephalic/atraumatic, Neck: supple, symmetrical, no thyromegaly , no dorsocervical or supraclavicular fat pads Cardiac: normal heart sounds Pulm: normal breath sounds B/L, no added breath sounds Abd: not distended, no tenderness Extremities: no edema, no signs of myxedema Laboratory Tests 07/21/22 05/25/24 06/05/24 16:10 05:59 14:22 TSH 1.28 46.23 H 43.98 H Free T4 0.88 0.52 L 0.48 L Thyroid Peroxidase Ab 177 H Laboratory Tests 08/16/24 09:00 TSH 21.21 H Free T4 1.00 PFSH Medical History Obstructive sleep apnea Metastatic malignant neoplasm to breast Hypothyroidism Surgical History Hx of bilateral mastectomy Hx of appendectomy Hx of hernia repair Family History Mother Diabetes Hypertension Father Cancer Social History Household Members: Spouse and Family Housing: Apartment Do you presently have visiting nurse or other home services: No Alcohol intake: former Patient Tobacco Use Status: Former Tobacco user Tobacco use type: Cigarette service: No Current occupational status: unemployed Assessment & Plan Assessment & Plan (1) Hypothyroidism: Code(s): E03.9 - Hypothyroidism, unspecified Category: Medical Qualifiers: 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 Oncologist appropriately increased dose of levothyroxine to 100 mcg daily from 75 mcg daily. 08/16/2024: TSH improved to 21.21, free T4 up to 1, levothyroxine increased to 112 mcg daily. She would be due for repeat labs in 6 weeks from dose change which would be end of September. Plan: -ordered TSH, free T4 to be done end of September 2024 -follow up in 3 months -could levothyroxine 112 mcg daily. (2) Amenorrhea: Code(s): N91.2 - Amenorrhea, unspecified Category: Medical Plan: Patient also mentioned during this visit that she has not had her periods since 2021. Since she underwent chemotherapy with history of metastatic breast cancer, she could have secondary amenorrhea in the setting of those. I will order FSH, LH, estradiol. Notably she is on trastuzumab. Even if she has early menopause, she would not be a candidate for HRT given metastatic breast cancer. She is on tamoxifen which does give her bone protection. I will check labs. Plan: -check FSH, LH, estradiol levels Plan I spent 30 minutes in reviewing the record, seeing the patient and documenting in the medical record. Orders: Orders Estradiol Ultra Sensitive 09/27/24 E06.3 - Autoimmune thyroiditis, N91.2 - Amenorrhea, unspecified Lutenizing Hormone 09/27/24 E06.3 - Autoimmune thyroiditis, N91.2 - Amenorrhea, unspecified Prolactin 09/27/24 E06.3 - Autoimmune thyroiditis, N91.2 - Amenorrhea, unspecified Thyroid Stimulating Hormone 09/27/24 E06.3 - Autoimmune thyroiditis Free T4 (Free Thyroxine) 09/27/24 E06.3 - Autoimmune thyroiditis Follicle Stimulating Hormone 09/27/24 E06.3 - Autoimmune thyroiditis, N91.2 - Amenorrhea, unspecified Patient Instructions: Continue levothyroxine 112 mcg daily Do blood work end of September 2024 we will reach out with results Follow up in 3 months Contin?e con levotiroxina 112 mcg al d?a. Link un an?lisis de mirta a finales de 2024 y le contactaremos con los resultados. Seguimiento en 3 meses. 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
--- OUTSIDE RECORDS SUMMARY | 2024-08-31 09:03 | XMS_ITS | Clinical Summary ---
Author Organization [address] [place] [address] Address [address] [place] [address] Phone Care Team Providers Care Iuss Master Analyst Name Role Phone Richar Montano MD Primary Care Provider [phone] Surgical History Surgery Date Site/Laterality Comments APPENDECTOMY PROCEDURE: [place] APPENDECTOMY Social History Tobacco Use Types Packs/Day [...] MEDICAID ADVANTAGE MEDICAID - [place] Care Teams Iuss Master Analyst Relationship Specialty Start Date End Date Richar Montano MD [address] [address] PCP - General Internal Medicine 11/09/19
== END 2024-08-31 09:22 | disposition home or self-care (01) ==
LOC: HO.ENCR 08:59
PROVIDERS: PCP Nurse Practitioner Family; Visit Provider Student in an Organized Health Care Education/Training Program
DX: E06.3 Autoimmune thyroiditis (principal); N91.2 Amenorrhea, unspecified
CPT/HCPCS: 99214

== ENCOUNTER → 2024-08-31 08:58 | Outpatient (BNVA) | payer OTHER, SELFPAY | PROVIDERS: PCP Nurse Practitioner Family; Visit Provider Student in an Organized Health Care Education/Training Program | DX: E06.3 Autoimmune thyroiditis (principal); N91.2 Amenorrhea, unspecified | CPT/HCPCS: 99212 ==

== ENCOUNTER 2024-09-10 09:38 | Day surgery (SDC) | payer OTHER, SELFPAY ==
--- OUTSIDE RECORDS SUMMARY | 2024-09-04 13:35 | XMS_ITS | Clinical Summary ---
Author Organization [address] [place] [address] Address [address] [place] [address] Phone Care Team Providers Care Mixing Tank Operator Name Role Phone Richar Montano MD Primary Care Provider [phone] Surgical History Surgery Date Site/Laterality Comments APPENDECTOMY PROCEDURE: [place] APPENDECTOMY Social History Tobacco Use Types Packs/Day [...] MEDICAID ADVANTAGE [place] - [place] Care Teams Mixing Tank Operator Relationship Specialty Start Date End Date Richar Montano MD [address] [address] PCP - General Internal Medicine 11/09/19
[2024-09-06 10:43] VITALS: BMI 33.6
--- NOTE | 2024-09-07 08:39 | P.CONAN_ITS ---
Documented by User: Whit Taylor NP 09/07/24 08:53 HPI - Anesthesia Eval Consult details Narrative: 44yo F for Cholecystectomy Laparoscopic,possible open history of right infiltrative ductal carcinoma, diagnosed in 2020, status post neoadjuvant chemotherapy, bilateral mastectomy in 2020 with metastatic cancer to the lung diagnosed in 2023 status post radiation therapy, on treatment with trastuzumab deruxtecan and tamoxifen. Follows [facility]. Per 08/2024 office visit: one more dose of her Enhertu, prior to the surgery. Will then hold it, till after the surgery to give her time to recover. She will continue on the Tamoxifen. Chronic opioids PMFSH Active Problems Active Problems: All Active Problems Amenorrhea (Acute) Metastatic cancer to lung (Acute) Chronic pain syndrome (Acute) Cancer of right breast, stage 4 (Acute) Hypothyroidism (Acute) Past Medical History Medical History (Updated 08/31/24 @ 09:21 by Evelyne Santiago MD) Amenorrhea Obstructive sleep apnea Metastatic malignant neoplasm to breast Hypothyroidism Family History Family History Mother Diabetes Hypertension Father Cancer Surgical History Surgical History Hx of bilateral mastectomy Hx of appendectomy Hx of hernia repair Social History Social History Household Members: Spouse and Family Housing: Apartment Do you presently have visiting nurse or other home services: No Alcohol intake: former Patient Tobacco Use Status: Former Tobacco user Tobacco use type: Cigarette Second Hand Smoke Exposure: No Have you been hit, kicked, punched, or otherwise hurt by someone within the past year? If so, by whom?: No Are you DNR?: No Advance Directives: No Advance Directives Information Provided: Yes Advance Directives on File: No Patient : No : No Poor oral hygiene: No service: No Current occupational status: unemployed Meds Allergies Allergy/AdvReac Type Severity Reaction Status Date / Time No Known Allergies Allergy Verified 08/31/24 09:04 Home Medications ?Medication ?Instructions ?Recorded ?Confirmed ?Last Taken ?Type famotidine 20 mg tablet 20 mg PO BID 07/15/22 09/10/24 Unknown History colestipol 1 gram tablet 2 g PO BID 05/23/24 09/10/24 Unknown History gabapentin 100 mg capsule 100 mg PO BID 05/23/24 09/10/24 Unknown History loperamide 2 mg capsule 2 mg PO Q4H PRN diarrhea 05/23/24 09/10/24 Unknown History tamoxifen 20 mg tablet 20 mg PO DAILY 05/23/24 09/10/24 Unknown History Exam Height,Weight and Vital Signs: Height 5 ft 6 in Weight 94.347 kg Pertinent Lab Results Pertinent Lab Results: Laboratory Tests 08/16/24 09:00 Sodium 140 Potassium 3.6 Chloride 108 Carbon Dioxide 25 BUN 12 Creatinine 0.77 Narrative Narrative: EKG 05/2024 Vent. Rate : 87 BPM Atrial Rate : 87 BPM P-R Int : 166 ms QRS Dur : 90 ms QT Int : 310 ms P-R-T Axes : 22 23 27 degrees QTcB Int : 373 ms Normal sinus rhythm Nonspecific T wave abnormality Abnormal ECG No previous ECGs available Assessment and Plan Assessment Anesthesia Assessment: Chart Reviewed Documented by User: James Murray MD 09/10/24 11:39 PMFSH Past Medical History Medical History (Updated 08/31/24 @ 09:21 by Evelyne Santiago MD) Amenorrhea Obstructive sleep apnea Metastatic malignant neoplasm to breast Hypothyroidism Family History Family History Mother Diabetes Hypertension Father Cancer Family history of problems with anesthesia: No Surgical History Surgical History Hx of bilateral mastectomy Hx of appendectomy Hx of hernia repair History of Problems with Anesthesia: No Social History Social History Household Members: Spouse and Family Housing: Apartment Do you presently have visiting nurse or other home services: No Alcohol intake: former Patient Tobacco Use Status: Former Tobacco user Tobacco use type: Cigarette Second Hand Smoke Exposure: No Have you been hit, kicked, punched, or otherwise hurt by someone within the past year? If so, by whom?: No Are you DNR?: No Advance Directives: No Advance Directives Information Provided: Yes Advance Directives on File: No Patient : No : No Poor oral hygiene: No service: No Current occupational status: unemployed Meds Allergies Allergy/AdvReac Type Severity Reaction Status Date / Time No Known Allergies Allergy Verified 08/31/24 09:04 Home Medications ?Medication ?Instructions ?Recorded ?Confirmed ?Last Taken ?Type famotidine 20 mg tablet 20 mg PO BID 07/15/22 09/10/24 Unknown History colestipol 1 gram tablet 2 g PO BID 05/23/24 09/10/24 Unknown History gabapentin 100 mg capsule 100 mg PO BID 05/23/24 09/10/24 Unknown History loperamide 2 mg capsule 2 mg PO Q4H PRN diarrhea 05/23/24 09/10/24 Unknown History tamoxifen 20 mg tablet 20 mg PO DAILY 05/23/24 09/10/24 Unknown History Exam Airway Mallampati Class: II TM Dist: >3cm Neck ROM: Full Loose/Missing/Broken Teeth: No (RRR) Heart: RRR Lungs: CTA b/l Assessment and Plan Assessment Anesthesia Assessment: Anesthesia Plan Discussed Final Anesthetic Review Family History of Problems with Anesthesia: No History of Problems with Anesthesia: No NPO: Yes ASA Class: III Final Preanesthetic Review: No Changes in Pt Med Stat Patient Risk: Intermediate Procedure Risk: Intermediate Anesthetic Plan Anesthetic Plan: GA
[2024-09-10] VITALS (12 sets, daily range): BP systolic 96–127; BP diastolic 48–87; PULSE 66–91; RESP 14–27; TEMP 36.2–36.6; O2SAT 95–100
[2024-09-10 10:10] LABS: Hematocrit 34.8 % (37.0-47.0); Hemoglobin 12.2 g/dl (12.0-16.0); Mean Corpuscular HGB Conc 35.1 g/dl (31.0-35.0); Mean Corpuscular Hemoglobin 34.2 pg (27.0-33.0); Mean Corpuscular Volume 97.5 fL (80.0-98.0); Mean Platelet Volume 10.5 fL (9.4-12.3); Red Blood Count 3.57 X10*6/uL (4.20-5.50); Red Cell Distribution Width 14.4 % (11.0-16.0)
[2024-09-10 10:12] LABS: Platelet Count 79 X10*3/uL (160-400); White Blood Count 2.3 X10*3/uL (4.8-10.8)
--- NOTE | 2024-09-10 10:25 | P.HPSUR_ITS ---
Pre-Procedural Eval Section A - 24 Hr Update-Section A only Date of Service: 09/10/24 The patient is an INPATIENT: No Changes since office visit: Yes Patient answered all questions; No Cold of Flu in the past 2 weeks, No New Medical Problems and No Changes in Medication The patient has been examined within 24 hours of the surgical procedure. The History & Physical has been completed within 30 days and I have reviewed it.: No Section B - Complete if H&P > 30 days Chief Complaint: Calculus of gallbladder with acute cholecystitis Details of Present Illness: Continues to have some discomfort in the right upper quadrant Relevant Family History (Specify if Yes): No Relevant Social History: None Present Medications: see Short Stay Collaborative assessment Medical History: Significant History (Breast CA) History of Previous Operations: No relevant previous surgery Allergies: Allergies Allergy/AdvReac Type Severity Reaction Status Date / Time No Known Allergies Allergy Verified 08/31/24 09:04 Review of Systems Sugical H&P ROS: Negative: Constitution, Cardiovascular, Respiratory, Neurological, Psychiatric, Allergic/Immunologic, Gastrointestinal, Genitouri nary, Musculoskeletal, Integumentary, Endocrine and Eyes/Ears/Nose/Throat and Yes, Specify: Hem-Onc (Breast cancer) Exam Surgical H&P Exam: Normal: HEENT, Normal: Heart, Normal: Lungs, Normal: Extremities, Normal: Skin and Normal: Neurological and Significant Findings: Abdomen (Tender right upper quadrant negative Rosenberg's) Plan Diagnosis/Plan: Unchanged I have reviewed the history and physical and performed a pertinent physical examination on my patient. No changes have occurred unless specified. Time Spent With Patient Time: Total time managing care of this patient today ____ minutes.
[2024-09-10] MEDS: Lactated Ringers 1,000 ML 100 ML IVCONT (10:30)
[2024-09-10 10:32] LABS: HCG Quantitative < 2 mIU/mL
[2024-09-10] MEDS: cefoTEtan disodium 2 GM VIAL IVPUSH (11:58)
--- NOTE | 2024-09-10 13:33 | W.PM.OPN ---
Operative Note Operative Note Date of Service: 09/10/24 Narrative: Preoperative diagnosis: Acute cholecystitis, cholelithiasis Postoperative diagnosis: Same Procedure: Laparoscopic cholecystectomy Surgeon: Anselmo Perkins MD Anatomical Embalmer: VANNESA Matthews, GRACE Brumfield Anesthesia: General endotracheal Indications for procedure: 44-year-old female patient with complaints of abdominal pain in the right upper quadrant found on workup to have multiple large gallstones within the gallbladder. She presents today for an elective laparoscopic cholecystectomy. Operative findings: Dense adhesions and acute inflammation suggestive of acute and chronic cholecystitis with cholelithiasis Specimen: gallbladder Estimated blood loss: 15 mL Complications: None Procedure details: Patient was brought to the OR and placed in a supine position. After administering general anesthesia the patient's abdomen was prepped with ChloraPrep and draped in a sterile fashion. A surgical time-out was called the consent confirmed. Patient received preoperative antibiotics and Venodyne boots were in place. Local anesthesia consisting of 0.5% Sensorcaine without epinephrine was infiltrated in a periumbilical region. A 5 mm incision was made above the umbilicus in a transverse fashion. The Veress needle was then inserted while elevating abdominal cavity with towel clips. After positive drop test the abdomen was insufflated to a pressure of 15 mm of mercury. The Veress needle was then removed and a 5 mm trocar inserted. The camera was inserted in the abdomen explored. A 12 mm trocar was then placed in the epigastrium. Two 5 mm trocars placed in the right upper quadrant by the assistant floor covering printer. The patient was placed in reverse Trendelenburg positioning and rotated to the left. The gallbladder was grasped with the fundus and retracted cephalad by the assistant floor covering printer. The infundibulum was then grasped and retracted away from the liver bed, also by the assistant floor covering printer. The Dolphin dissected was then used by the surgeon to dissect the peritoneum off the infundibulum to reveal the junction with the cystic duct. Cystic artery was noted slightly medial and posterior to the cystic duct. After obtaining a critical view the cystic duct was doubly clipped and divided. The cystic artery was then doubly clipped and divided. The gallbladder was then dissected off the liver bed using electrocautery with an L hook. Hemostasis was assured all times using the electrocautery. When the gallbladder is completely dissected off the liver bed was placed in an Endo-Catch bag and brought out through the epigastric incision. The gallbladder was sent to pathology for further examination. The abdomen was then re-examined. The liver bed was irrigated and suctioned dry. No bleeding or bile leak could be identified. Surgicel was applied to the liver bed for additional hemostasis. CO2 was then evacuated and all trocars removed. Fascia was closed at the epigastric incision using a [id number] 0 Polysorb suture. Skin was closed in all incisions using a subcuticular 4 0 Polysorb suture by both the surgeon and assistant floor covering printer. Sterile dressings consisting of Steri-Strips, 2 x 2 gauze, and Tegaderm were then applied. The patient tolerated the procedure well. Sponge instrument and needle counts reported as correct. The patient was transferred to PACU in stable condition.
[2024-09-10] MEDS: fentaNYL citrate/PF 100 MCG/2 ML VIAL 25 MCG IVPUSH ×3 (14:10→14:20)
[2024-09-10] MEDS: Acetaminophen 1,000 MG/100 ML PIGGYBACK 400 MG IV (14:10)
[2024-09-10] MEDS: Ketorolac Tromethamine 15 MG/ML VIAL IVPUSH (14:35)
== END 2024-09-10 15:11 | disposition home or self-care (01) ==
PROVIDERS: Anesthesiology; Nurse Practitioner; PCP Nurse Practitioner Family; Visit Provider Surgery
PROC: 0FT44ZZ Resection of Gallbladder, Percutaneous Endoscopic Approach (ICD-10-PCS; CPT 47562; principal; 2024-09-10 11:30)
DX: K80.12 Calculus of gallbladder with acute and chronic cholecystitis without obstruction (principal); K82.8 Other specified diseases of gallbladder; C79.81 Secondary malignant neoplasm of breast; Z90.13 Acquired absence of bilateral breasts and nipples; E03.9 Hypothyroidism, unspecified; G47.33 Obstructive sleep apnea (adult) (pediatric); Z79.810 Long term (current) use of selective estrogen receptor modulators (SERMs); Z79.899 Other long term (current) drug therapy; Z98.890 Other specified postprocedural states; Z87.891 Personal history of nicotine dependence
CPT/HCPCS: 47562; 36415; 84702; 85027; 88304; J0131; J1885; J2003; J2250; J2371; J2704; J2795; J3010

== ENCOUNTER → 2024-09-10 09:38 | Outpatient (BNV) | payer OTHER, SELFPAY | PROVIDERS: PCP Nurse Practitioner Family; Visit Provider Surgery | DX: K81.0 Acute cholecystitis (principal) | CPT/HCPCS: 47562 ==

== ENCOUNTER 2024-09-20 09:57 | Outpatient (AMB) | payer OTHER, SELFPAY ==
--- NOTE | 2024-09-20 09:57 | MHC.OFFVIS ---
Vital Signs 09/20/24 10:06 Height 5 ft 6 in Weight 196 lb BMI 31.6 BP 107/62 Blood Pressure Location Lt brachial Position Sitting Pulse 73 Intake Visit Reasons: S/P lap jeyson Intake Note: Patient is seen in office for post op assesment post laparoscopic cholecystectomy Pt c/o: admits to pain in the upper abdomen incision, constipation and straining, bm every other day, taking Miralax with minimal release surgery:09/10/24 Geoscience Specialist Required: Yes Geoscience Specialist Language: Power Truck Driver Services: Geoscience Specialist Present Geoscience Specialist Name: Fawn FORREST Information Interpreted: non-clinical & clinical Whirley Operator: Whirley Operator Present Accompanied by: Self / Same As Patient Allergies No Known Allergies Allergy (Verified 09/20/24 09:59) HPI Comments Details: 44-year-old female patient returning 1 week following laparoscopic cholecystectomy performed on 09/10/2024. She has some mild discomfort at the incisions but generally feels well. She does report constipation for which she was prescribed Colace and MiraLax. She has been taking the Colace but we will be starting the MiraLax. She denies any nausea, vomiting, fever or chills. [facility] Medical History (Updated 09/19/24 @ 09:59 by Monie Chan NP) Amenorrhea Obstructive sleep apnea Metastatic malignant neoplasm to breast Hypothyroidism Surgical History (Updated 09/19/24 @ 09:59 by Monie Chan NP) Hx laparoscopic cholecystectomy (09/10/24) Hx of bilateral mastectomy Hx of appendectomy Hx of hernia repair Family History Mother Diabetes Hypertension Father Cancer Social History Household Members: Spouse and Family Housing: Apartment Do you presently have visiting nurse or other home services: No Alcohol intake: former Comment: d/c instructions reviewed with pt with assistance of structural manager. Patient Tobacco Use Status: Former Tobacco user Tobacco use type: Cigarette Second Hand Smoke Exposure: No service: No Current occupational status: unemployed Physical Exam Vital Signs: Last Vital Signs Pulse 73 09/20/24 10:06 BP 107/62 09/20/24 10:06 BMI result Body Mass Index 31.6 Const General: healthy appearing Nutritional Appearance: well nourished Orientation/consciousness: patient oriented x3 Resp Effort & Inspection: normal respiratory effort GI Other: Trocar incisions are clean, dry, and intact without redness or discharge. No hernias are noted. Skin Other: Warm, dry, normal color Neuro General: patient oriented x3 Assessment & Plan Assessment & Plan (1) Acute calculous cholecystitis: Code(s): K80.00 - Calculus of gallbladder with acute cholecystitis without obstruction Category: Medical Plan 44-year-old female patient returning 1 week following laparoscopic cholecystectomy. She tolerated the procedure well and her wounds are healing nicely. She should follow up as needed. I recommended no heavy lifting for 1 more week. She should continue to avoid fatty/fried foods. Coding Level of Care Code Global (14155) Diagnoses Acute calculous cholecystitis K80.00
[2024-09-20 10:06] VITALS: BP 107/62; PULSE 73; BMI 31.6
--- OUTSIDE RECORDS SUMMARY | 2024-09-20 11:05 | XMS_ITS | Clinical Summary ---
Author Organization [address] [place] [address] Address [address] [place] [address] Phone Care Team Providers Care Gas Plant Technician Name Role Phone Richar Montano MD Primary Care Provider [phone] Surgical History Surgery Date Site/Laterality Comments APPENDECTOMY PROCEDURE: [place] APPENDECTOMY Social History Tobacco Use Types Packs/Day [...] MEDICAID ADVANTAGE [place] - [place] Care Teams Gas Plant Technician Relationship Specialty Start Date End Date Richar Montano MD [address] [address] PCP - General Internal Medicine 11/09/19
== END 2024-09-20 10:18 | disposition home or self-care (01) ==
LOC: HO.HGS 09:57
PROVIDERS: PCP Nurse Practitioner Family; Visit Provider Surgery
DX: K80.00 Calculus of gallbladder with acute cholecystitis without obstruction (principal)
CPT/HCPCS: 99024

== ENCOUNTER → 2024-09-20 09:57 | Outpatient (BNVA) | payer OTHER, SELFPAY | PROVIDERS: PCP Nurse Practitioner Family; Visit Provider Surgery | DX: K80.00 Calculus of gallbladder with acute cholecystitis without obstruction (principal); Z90.49 Acquired absence of other specified parts of digestive tract | CPT/HCPCS: 99212 ==

== ENCOUNTER 2024-09-26 09:05 | Outpatient (REF) | payer OTHER, SELFPAY ==
--- OUTSIDE RECORDS SUMMARY | 2024-09-26 09:49 | XMS_ITS | Clinical Summary ---
Author Organization [address] [facility] Address [address] [place] [address] Phone Care Team Providers Care Exploration Driller Name Role Phone Richar Montano MD Primary Care Provider [phone] Surgical History Surgery Date Site/Laterality Comments APPENDECTOMY PROCEDURE: [place] APPENDECTOMY Social History Tobacco Use Types Packs/Day [...] MEDICAID ADVANT[place] - [place] Care Teams Exploration Driller Relationship Specialty Start Date End Date Richar Montano MD [address] [address] PCP - General Internal Medicine 11/09/19
[2024-09-26 10:31] LABS: Free T4 (Free Thyroxine) 1.02 ng/dL (0.71-1.85)
[2024-09-27 05:43] LABS: Lutenizing Hormone 14.6 mIU/mL; Prolactin 11.6 ng/mL
[2024-10-05 06:54] LABS: Estradiol Ultra Sensitive 14 pg/mL
== END 2024-09-26 09:06 | disposition home or self-care (01) ==
LOC: HO.10HDL 09:05
PROVIDERS: Visit Provider Student in an Organized Health Care Education/Training Program
DX: E06.3 Autoimmune thyroiditis (principal); N91.2 Amenorrhea, unspecified
CPT/HCPCS: 36415; 82670; 83001; 83002; 84146; 84439; 84443

== ENCOUNTER → 2024-10-19 14:48 | Outpatient (REF) | payer OTHER, SELFPAY ==
--- OUTSIDE RECORDS SUMMARY | 2024-10-19 14:50 | XMS_ITS | Encounter Summary ---
Author Organization [facility], Address [address] [place] [address] Phone Care Team Providers Care Manager Lab Name Role Phone Theron Richard NP Primary Care Provider [phone] Encounter Details Date Type Department Care Team (Late st Contact Info) Description 07/19/2023 Documentation Only [facility] - [facility] [address] [place] [address] [place] [phone] Liane Luis [address] [place] [phone] Social History Tobacco Use Types Packs/Day [...] on filedocumented in this encounter Care Teams Manager Lab Relationship Specialty Start Date End Date Theron Richard NP [address] [place] [address] PCP - General Nurse Practitioner 07/12/23 documented as of this encounter
--- OUTSIDE RECORDS SUMMARY | 2024-10-19 14:50 | XMS_ITS | Encounter Summary ---
Author Organization [employer] Address [address] [facility] 7t [place] [address] Care Team Providers Care Oyster Opener Name Role Phone Unavailable Primary Care Provider Unavailabl e Reason for Visit * Reason Onset Date Comments appt cancer patient 05/09/2024 Encounter Details Date Type Department Care Team (Late st Contact Info) Description 05/09/2024 Telephone [facility] [address] [place], [place] [phone] Jyoti Rojas DDS [address] [place], [place] [phone] appt cancer patient Social History Tobacco Use [...]
--- OUTSIDE RECORDS SUMMARY | 2024-10-19 14:50 | XMS_ITS | Clinical Summary ---
Author Organization [facility] Address [address] [place] [address] Phone Care Team Providers Care Centrifugal Station Operator Name Role Phone Richar Montano MD Primary Care Provider [phone] Surgical History Surgery Date Site/Laterality Comments APPENDECTOMY PROCEDURE: DE APPENDECTOMY Social History Tobacco Use Types Packs/Day [...] Influencers of Health Screening 08/07/2024 Influenza Vaccine (#1) 2024 HIB Vaccines Aged Out No longer [...] and At-Risk Patients (6 to 49 Years) Aged Out No longer eligible b ased on patient's age to complete this topic RSV Immunization Patients Un donnie 20 months Aged Out No longer eligible b ased on patient's age to complete this topic Varicella Vaccines Aged Out No longer eligible based on patient's age to complete this topic Insurance [employer] [place] MEDICAID ADVANTAGE MEDICAID - [place] Care Teams Centrifugal Station Operator Relationship Specialty Start Date End Date Richar Montano MD [address] [address] PCP - General Internal Medicine 11/09/19
--- NOTE | 2024-10-19 14:53 | CA_ITS ---
Transthoracic Echocardiogram Patient (Last, First, Middle): Stefani Mandujano L Gender: Female Date of : 1980 Age: 44 Procedure Date: 10/19/2024 Procedure Type: Transthoracic Echocardiogram Location: OP Height: 167.64 cm Weight: 88. kg BSA: 1.97 m2 Heart Rate: 75 bpm BP: 107 / 62 mmHg Metal Bonding Helper: TEODORA Referring MD: Monie Chan NP Symptoms: on chemotherapy, f/u echo Study Quality: Adequate w contrast ECG Rhythm: Sinus Conclusions: - The left ventricular systolic function is normal. The visually estimated ejection fraction is between 55-60%. Findings Procedure Information Contrast agent, definity, is being given per protocol without apparent complications. Left Ventricle Normal left ventricular cavity size. There is normal left ventricular wall thickness. The left ventricular systolic function is normal. The visually estimated ejection fraction is between 55-60%. There is no evidence of regional wall motion abnormalities. LV peak GLS -17.7% (low normal). Prior Study Comparison No prior study available for comparison. Measurements 2D Linear Measurements IVSd: 0.86 0.6-0.9/0.6-1.0 cm LVIDd: 4.84 3.9-5.3/4.2-5.9 cm LVIDd Index: 2.46 2.4-3.2/2.2-3.1 cm/m2 LVIDs: 3.06 2.0-3.6 cm LVPWd: 0.70 0.7-1.1 cm LV Mass: 154.46 67-162/88-224 g LV Mass Index: 78.41 43-95/49-115 g/m2 LVOT Diam: 2.00 3.0+(-)1.3 cm 2D Systolic Function EF 4C: 60.40 >55% EF 2C: 68.40 >55% EF BiP: 65.40 >55% LVOT LVOT Pk Elder: 1.09 LVOT Mn Elder: 0.74 LVOT VTI: 0.20 LVOT Pk Grad: 5.00 LVOT Mn Grad: 3.00 LVOT Diam: 2.00 LVOT Area: 3.14 Updated in Other Vendor System with Status of Final Peng Somers MD electronically signed on 10/20/2024 12:27:40 PM with status of Final
== END ==
LOC: HO.CARD 14:48
PROVIDERS: PCP Nurse Practitioner Family; Visit Provider Nurse Practitioner Family
DX: C50.911 Malignant neoplasm of unspecified site of right female breast (principal)
CPT/HCPCS: 93308; Q9957

== ENCOUNTER → 2024-10-19 14:53 | Outpatient (BNV) | payer OTHER, SELFPAY | PROVIDERS: PCP Nurse Practitioner Family; Visit Provider Internal Medicine | DX: Z51.81 Encounter for therapeutic drug level monitoring (principal) | CPT/HCPCS: 93308; 93356 ==

== ENCOUNTER 2024-11-30 08:40 | Outpatient (AMB) | payer OTHER, SELFPAY ==
--- NOTE | 2024-11-30 08:53 | A.OFFVIS_ITS ---
Vital Signs 11/30/24 08:54 Height 5 ft 6 in Weight 199 lb 1.239 oz BMI 32.1 BP 90/56 L Blood Pressure Location Lt brachial Position Sitting Intake Visit Reasons: Hypothyroidism Intake Note: Patient present today for Hypothyroidism office visit. Director Of Midwifery/Staff Midwife Required: Yes Director Of Midwifery/Staff Midwife Language: Worker'S Compensation Claims Examiner Services: Director Of Midwifery/Staff Midwife Present Director Of Midwifery/Staff Midwife Name: Luke [phone] Information Interpreted: non-clinical & clinical Accompanied by: Self / Same As Patient Allergies No Known Allergies Allergy (Verified 11/30/24 08:58) Medication List - Last Reconciled 11/30/24 by Evelyne Santiago MD cholecalciferol (vitamin D3) (Vitamin D3) 125 mcg PO DAILY colestipol 2 grams PO BID famotidine (Pepcid) 20 mg PO BEDTIME famotidine 20 mg PO BID gabapentin 100 mg PO BID levothyroxine 112 mcg PO DAILY 30 days lidocaine 5% (Lidoderm) 1 patch topical DAILY loperamide 2 mg PO Q4H PRN midodrine 2.5 mg (1/2 x 5 mg) PO TID naloxone 4 mg/actuation (Narcan) 1 spray intranasal Q2M ondansetron 4 mg PO Q8H PRN oxycodone 5 mg PO Q6H PRN oxycodone ER (OxyContin) 30 mg PO Q12H polyethylene glycol 3350 (Miralax) 17 grams PO DAILY PRN tamoxifen 20 mg PO DAILY HPI Comments Details: 44-year-old female here today for follow up of hypothyroidism. HPI Otherwise history significant for metastatic breast cancer, with a history of right infiltrative ductal carcinoma, diagnosed in 2020, status post neoadjuvant chemotherapy, bilateral mastectomy in 2020 with metastatic cancer to the lung diagnosed in 2023 status post radiation therapy, on treatment with trastuzumab deruxtecan and tamoxifen. Following with Dr. Maharaj. Treated with pembrolizumab started 08/05/2023. trastuzumab diruxetecan started 12/16/2023. She was diagnosed with hypothyroidism in 2018 and started on levothyroxine apparently not until last year 2023. Was on a dose of 50 initially now uptitrated to 100 mcg daily. 05/25/2024: TSH 46.23, free T4 0.52 06/05/2024: TSH 43.98, free T4 0.48 06/28/2024: Levothyroxine increased to 100 mcg daily by oncologist. Patient currently denies heat or cold intolerance, hair loss,, anxiety, weight changes, mood changes, changes in appearance of eyes or vision changes, tremors, increased diaphoresis or dry skin. ? Reports some intermittent palpitations. Reports intermittent diarrhea and constipation Complains of fatigue. Some chronic intermittent difficulty swallowing for 4-5 months. Reports some voice hoarseness. Patient did receive radiation therapy to the right chest for metastatic breast cancer to the lung (10/18/2023 through 10/28/2023: She was treated with 5 fractions of radiation to the right side. She was given a total dose of 2/200 0 cGy). Denies having ever used lithium, amiodarone or biotin supplements. Patient denies any family history of thyroid cancer . Mother : thyroid disease 08/16/2024: TSH: 21.21, free T4 1 Levothyroxine dose increased from 100 to 112 mcg daily Interval history 09/26/2024: TSH 3.40, free T4 1.02, estradiol 14, F SH 17, LH 14, prolactin 11.6 Reports still has tiredness Hasnt had periods since 2021. Continues on levothyroxine 112 mcg daily Physical exam General: sitting comfortably in no acute distress HEENT: normocephalic/atraumatic, Neck: supple, symmetrical, no thyromegaly , no dorsocervical or supraclavicular fat pads Cardiac: normal heart sounds Pulm: normal breath sounds B/L, no added breath sounds Abd: not distended, no tenderness Extremities: no edema, no signs of myxedema Laboratory Tests 07/21/22 05/25/24 06/05/24 16:10 05:59 14:22 TSH 1.28 46.23 H 43.98 H Free T4 0.88 0.52 L 0.48 L Thyroid Peroxidase Ab 177 H Laboratory Tests 08/16/24 09:00 TSH 21.21 H Free T4 1.00 Laboratory Tests 09/10/24 09/26/24 10:02 09:10 TSH 3.40 Free T4 1.02 Estradiol Ultra LCMSMS 14 FSH 17.0 Luteinizing Hormone 14.6 Prolactin 11.6 Beta HCG, Quant < 2 PFSH Medical History Amenorrhea Obstructive sleep apnea Metastatic malignant neoplasm to breast Hypothyroidism Surgical History Hx laparoscopic cholecystectomy (09/10/24) Hx of bilateral mastectomy Hx of appendectomy Hx of hernia repair Family History Mother Diabetes Hypertension Father Cancer Social History Household Members: Spouse and Family Housing: Apartment Do you presently have visiting nurse or other home services: No Alcohol intake: former Comment: d/c instructions reviewed with pt with assistance of senior electrical engineer. 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 Oncologist appropriately increased dose of levothyroxine to 100 mcg daily from 75 mcg daily. 08/16/2024: TSH improved to 21.21, free T4 up to 1, levothyroxine increased to 112 mcg daily. Most recent labs from September 2024 shows appropriate levels of TSH and free T4, she continues on levothyroxine 112 mcg daily. Overall she is doing well. Plan: -could levothyroxine 112 mcg daily. -do TSH and free T4 prior to follow up in 1 year (2) Amenorrhea: Code(s): N91.2 - Amenorrhea, unspecified Category: Medical Plan: Patient also mentioned during this visit that she has not had her periods since 2021. Since she underwent chemotherapy with history of metastatic breast c ancer, she could have secondary amenorrhea in the setting of those. Labs done September 2024 showed estradiol of 14 which is not very low, FSH and LH are borderline menopause levels. Notably she is on trastuzumab. Even if she has early menopause, she would not be a candidate for HRT given metastatic breast cancer. She is on tamoxifen which does give her bone protection. 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
[2024-11-30 08:54] VITALS: BP 90/56; BMI 32.1
--- OUTSIDE RECORDS SUMMARY | 2024-11-30 09:36 | XMS_ITS | Clinical Summary ---
Author Organization [facility], Address [address] [place] [address] Phone Care Team Providers Care Gis Analyst Developer Name Role Phone Theron Richard KILN DRAWER Primary Care Provider [phone] Allergies No known active allergies Medications acetaminophen [...] 74 07/12/2023 10:44 AM EDT Temperature 36.6 C (97.8 F) 07/12/2023 10:44 AM EDT Respiratory Rate 16 07/12/2023 10:44 AM EDT [...] of 2 - PCV) 02/03/1999 Influenza Vaccine (#1) 2024 Insurance [facility] Medicaid Care Teams Gis Analyst Developer Relationship Specialty Start Date End Date Theron Richard NP [address] [place], [place] PCP - General Nurse Practitioner 07/12/23
--- OUTSIDE RECORDS SUMMARY | 2024-11-30 09:36 | XMS_ITS | Encounter Summary ---
Author Organization [employer] Address [address] [facility] 7t [place] [address] Care Team Providers Care Associate Store Manager Name Role Phone Unavailable Primary Care Provider Unavailabl e Reason for Visit * Reason Onset Date Comments appt cancer patient 05/09/2024 Encounter Details Date Type Department Care Team (Late st Contact Info) Description 05/09/2024 Telephone [facility] ADULT [facility] [address] [place], [place] [phone] Jyoti Rojas DDS [address] [place], [place] [phone] appt cancer patient Social History Tobacco Use [...]
--- OUTSIDE RECORDS SUMMARY | 2024-11-30 09:36 | XMS_ITS | Clinical Summary ---
Author Organization [employer] Address [address] [facility] 7t [place] [address] Care Team Providers Care Oracle Soa Architect Name Role Phone Unavailable Primary Care [...] Date Last Done Comments Depression Screening 1980 Disability Screening 1980 Alcohol/Substance Use Screening 1992 Tobacco Screening 1992 Family Planning (PISQ) 02/03/1995 HPV Vaccines (1 - 3-dose series) 02/03/1995 DTaP/Tdap/Td Vaccines (1 - Tdap) 02/03/1999 Hepatitis B Vaccines (1 of 3 - 19+ 3-dose series) 02/03/1999 Pap Smear 02/03/2001 Cervical Cancer Screening 02/03/2010 HPV/Cotest 02/03/2010 Mammogram 2020 COVID-19 Vaccine ( - 2023-2 5 season) 2023 Influenza Vaccine (#1) 2024 Zoster Vaccines (1 of 2) 02/03/2030 RSV [...] Years) and At-Risk Patients (6 to 49) Years Aged Out No longer eligible b ased on patient's age to complete this topic RSV under 20 months Aged Out No longe r eligible based on patient's age to complete this topic Rotavirus Vaccines Aged Out No longer eligible based on patient's age to complete this topic
--- OUTSIDE RECORDS SUMMARY | 2024-11-30 09:36 | XMS_ITS | Clinical Summary ---
Author Organization [address] [place] [address] Address [address] [place] [address] Phone Care Team Providers Care Mental Retardation Nurse Name Role Phone Richar Montano MD Primary Care Provider [phone] Surgical History Surgery Date Site/Laterality Comments APPENDECTOMY PROCEDURE: [place] APPENDECTOMY Social History Tobacco Use Types Packs/Day [...] Vaccine (2023-2 5 season) 2023 Depression Screening 04/04/2024 HIV Screening 08/07/2024 Hepatitis C Screening 08/07/2024 [...] MEDICAID ADVANTAGE MEDICAID - [place] Care Teams Mental Retardation Nurse Relationship Specialty Start Date End Date Richar Montano MD [address] [address] PCP - General Internal Medicine 11/09/19
--- OUTSIDE RECORDS SUMMARY | 2024-11-30 09:36 | XMS_ITS | Encounter Summary ---
Author Organization [facility], Address [address] [place] [address] Phone Care Team Providers Care Telehealth Coordinator Name Role Phone Theron Richard NP Primary Care Provider [phone] Encounter Details Date Type Department Care Team (Late st Contact Info) Description 07/19/2023 Documentation Only [facility] - Vascular Access Center [address] [place] [address] [place] [phone] Liane Luis [address] [place] [phone] Social History Tobacco Use Types Packs/Day [...] on filedocumented in this encounter Care Teams Telehealth Coordinator Relationship Specialty Start Date End Date Theron Richard NP [address] [place] [address] PCP - General Nurse Practitioner 07/12/23 documented as of this encounter
--- OUTSIDE RECORDS SUMMARY | 2024-11-30 09:36 | XMS_ITS | Encounter Summary ---
Author Organization [employer] [facility] Address [address] [facility] 7t [place] [address] Care Team Providers Care Sugar Controller Name Role Phone Unavailable Primary Care Provider [...]
== END 2024-11-30 09:05 | disposition home or self-care (01) ==
LOC: HO.ENCR 08:41
PROVIDERS: PCP Nurse Practitioner Family; Visit Provider Student in an Organized Health Care Education/Training Program
DX: E06.3 Autoimmune thyroiditis (principal); N91.2 Amenorrhea, unspecified
CPT/HCPCS: 99213

== ENCOUNTER → 2024-11-30 08:40 | Outpatient (BNVA) | payer OTHER, SELFPAY | PROVIDERS: PCP Nurse Practitioner Family; Visit Provider Student in an Organized Health Care Education/Training Program | DX: E06.3 Autoimmune thyroiditis (principal); N91.2 Amenorrhea, unspecified | CPT/HCPCS: 99212 ==

== ENCOUNTER 2024-12-14 10:47 | Outpatient (AMB) | payer OTHER, SELFPAY ==
--- NOTE | 2024-12-14 11:07 | MHC.OFFVIS ---
Vital Signs 12/14/24 11:15 Height 5 ft 6 in Weight 196 lb BMI 31.6 BP 106/61 Blood Pressure Location Lt brachial Position Sitting Pulse 90 Intake Visit Reasons: discomfort at cholecystectomy site Intake Note: Patient is seen in office for wound check, post laparoscopic cholecystectomy. Pt c/o: admits to a lump in the area feels it shifts to the side when sleeping, very painful out of no where, meats upset her stomach and give her diarrhea, also gets cramps in the area Child Life Assistant Required: Yes Child Life Assistant Language: Double Head Machine Operator Services: Child Life Assistant Present Child Life Assistant Name: Fawn FORREST Information Interpreted: non-clinical & clinical Separating Machine Operator: Separating Machine Operator Present Accompanied by: Self / Same As Patient Allergies No Known Allergies Allergy (Verified 12/14/24 11:14) HPI Comments Details: 44-year-old female patient presenting with complaints of upper abdominal pain especially when rolling or changing positions following a laparoscopic cholecystectomy performed on 09/10/2024. She denies any lumps in the abdominal wall. She has been eating well without nausea or vomiting. Her bowels have been normal as well. She mainly feels the pain in the upper abdomen in his not affected by food. She is concerned that the pain seems to be worsening. She denies fever or chills. PFSH Medical History Amenorrhea Obstructive sleep apnea Metastatic malignant neoplasm to breast Hypothyroidism Surgical History Hx laparoscopic cholecystectomy (09/10/24) Hx of bilateral mastectomy Hx of appendectomy Hx of hernia repair Family History Mother Diabetes Hypertension Father Cancer Social History Household Members: Spouse and Family Housing: Apartment Do you presently have visiting nurse or other home services: No Alcohol intake: former Comment: d/c instructions reviewed with pt with assistance of billing checker. Patient Tobacco Use Status: Former Tobacco user Tobacco use type: Cigarette Second Hand Smoke Exposure: No service: No Current occupational status: unemployed Review of Systems Const All systems reviewed & are unremarkable except as noted in HPI and below Physical Exam Vital Signs: Last Vital Signs Pulse 90 12/14/24 11:15 BP 106/61 12/14/24 11:15 BMI result Body Mass Index 31.6 Const General: healthy appearing Nutritional Appearance: well nourished Orientation/consciousness: patient oriented x3 Resp Effort & Inspection: normal respiratory effort GI Other: Soft, nondistended, well-healed trocar incisions without redness or discharge. No changes noted with Valsalva maneuvers to indicate an underlying hernia. No palpable mass appreciated however tenderness is elicited with deep palpation. Skin Other: Warm, dry, normal color Neuro General: patient oriented x3 Assessment & Plan Assessment & Plan (1) Acute calculous cholecystitis: Code(s): K80.00 - Calculus of gallbladder with acute cholecystitis without obstruction Category: Medical Plan 44-year-old female patient status post laparoscopic cholecystectomy on 09/10/2024 now with persistent abdominal pain mainly in the mid abdomen both periumbilical and epigastric. No palpable mass or hernias appreciated. There was no evidence of underlying infection. There is tenderness elicited to deep palpation. I recommended further evaluation with a CT abdomen and pelvis with contrast. She expressed understanding and agrees with the plan. She will return following the study to review the results. Orders: Orders CT abdomen pelvis w IV con Today K80.00 - Calculus of gallbladder with acute cholecystitis without obstruction Coding Level of Care Code Est Pt Level 3 (09429) Diagnoses Acute calculous cholecystitis K80.00
[2024-12-14 11:15] VITALS: BP 106/61; PULSE 90; BMI 31.6
--- OUTSIDE RECORDS SUMMARY | 2024-12-14 12:21 | XMS_ITS | Encounter Summary ---
Author Organization [employer] [facility] Address [address] [facility] 7t [place] [address] Care Team Providers Care Insurance Defense Paralegal Name Role Phone Unavailable Primary Care Provider [...]
--- OUTSIDE RECORDS SUMMARY | 2024-12-14 12:21 | XMS_ITS | Clinical Summary ---
Author Organization [employer] Address [address] [facility] 7t [place] [address] Care Team Providers Care Accredited Farm Manager Name Role Phone Unavailable Primary Care [...] COVID-19 Vaccine (1 - 2023-2 5 season) 2024 Influenza Vaccine (#1) 2024 Zoster Vaccines (1 [...]
--- OUTSIDE RECORDS SUMMARY | 2024-12-14 12:21 | XMS_ITS | Encounter Summary ---
Author Organization [employer] Address [address] [facility] 7t [place] [address] Care Team Providers Care Can Labeler Name Role Phone Unavailable Primary Care Provider Unavailabl e Reason for Visit * Reason Onset Date Comments appt cancer patient 05/09/2024 Encounter Details Date Type Department Care Team (Late st Contact Info) Description 05/09/2024 Telephone [facility] ADULT DENTAL [address] [place], [place] [phone] Jyoti Rojas DDS [address] [place], [place] [phone] appt cancer patient Social History Tobacco Use [...]
--- OUTSIDE RECORDS SUMMARY | 2024-12-14 12:21 | XMS_ITS | Clinical Summary ---
Author Organization [facility] Address [address] [place] [address] Phone Care Team Providers Care Tinware Lithograph Press Operator Name Role Phone Richar Montano MD Primary Care Provider [phone] Surgical History Surgery Date Site/Laterality Comments APPENDECTOMY PROCEDURE: [place] APPENDECTOMY Social History Tobacco Use Types Packs/Day [...] Cervical Cancer Screening: P ap Smear 02/03/2001 Depression Screening 04/04/2024 HIV Screening 08/07/2024 Hepatitis C Screening 08/07/2024 Social Influencers of Health Screening 08/07/2024 COVID-19 Vaccine (2023-2 5 season) 2024 Influenza Vaccine (#1) 2024 HIB Vaccines Aged [...] MEDICAID ADVANTAGE MEDICAID - [place] Care Teams Tinware Lithograph Press Operator Relationship Specialty Start Date End Date Richar Montano MD [address] [address] PCP - General Internal Medicine 11/09/19
--- OUTSIDE RECORDS SUMMARY | 2024-12-14 12:21 | XMS_ITS | Clinical Summary ---
Author Organization [facility], Address [address] [place] [address] Phone Care Team Providers Care Performance Improvement Coordinator Name Role Phone Theron Richard SALES SUPPORT SPECIALIST Primary Care Provider [phone] Allergies No known active allergies Medications acetaminophen [...] 2024 Insurance [facility] Medicaid Care Teams Performance Improvement Coordinator Relationship Specialty Start Date End Date Theron Richard NP [address] [place], [place] PCP - General Nurse Practitioner 07/12/23
--- OUTSIDE RECORDS SUMMARY | 2024-12-14 12:21 | XMS_ITS | Encounter Summary ---
Author Organization [facility], Address [address] [place] [address] Phone Care Team Providers Care Chairman Of The Board Name Role Phone Theron Richard NP Primary Care Provider [phone] Encounter Details Date Type Department Care Team (Late st Contact Info) Description 07/19/2023 Documentation Only [facility] - V[facility] Access Center [address] [place] [address] [place] [phone] Liane Luis [address] [place] [phone] Social History Tobacco Use Types Packs/Day [...] on filedocumented in this encounter Care Teams Chairman Of The Board Relationship Specialty Start Date End Date Theron Richard NP [address] [place] [address] PCP - General Nurse Practitioner 07/12/23 documented as of this encounter
== END 2024-12-14 11:19 | disposition home or self-care (01) ==
LOC: HO.HGS 10:47
PROVIDERS: PCP Nurse Practitioner Family; Visit Provider Surgery
DX: K80.00 Calculus of gallbladder with acute cholecystitis without obstruction (principal)
CPT/HCPCS: 99213

== ENCOUNTER → 2024-12-14 10:47 | Outpatient (BNVA) | payer OTHER, SELFPAY | PROVIDERS: PCP Nurse Practitioner Family; Visit Provider Surgery | DX: K80.00 Calculus of gallbladder with acute cholecystitis without obstruction (principal); R10.10 Upper abdominal pain, unspecified | CPT/HCPCS: 99212 ==

== ENCOUNTER 2025-01-18 08:53 | Emergency (ER) | payer OTHER, SELFPAY ==
--- NOTE | ~2025-01-18 | XR_ITS ---
EXAMINATION: XR CHEST CLINICAL INFORMATION: cough COMPARISON: Correlation made with CTPA 05/22/2024. TECHNIQUE: Frontal view of the chest was obtained. FINDINGS: Left chest port in place with tip extending into the cavoatrial junction. The cardiac, hilar, and mediastinal contours are normal. Mildly elevated right hemidiaphragm, unchanged. Lungs demonstrate opacities in the right mid and upper lung with associated linear component, suspicious for pneumonia. The left lung appears clear. No pneumothorax or effusion. No focal osseous or soft tissue abnormality. Cholecystectomy clips are present. Surgical clips present in the right axilla. XR/XR chest 1V IMPRESSION: 1. Airspace opacity in the right mid and upper lung, concerning for pneumonia in the appropriate clinical setting. 2. Well-positioned left-sided chest port. Electronically signed by: Nic Joseph MD 01/18/2025 10:59 AM EDT
[2025-01-18 09:11] VITALS: BP 106/59; PULSE 92; RESP 18; TEMP 36.9; O2SAT 98; BMI 30.6
--- NOTE | 2025-01-18 09:15 | ECG_ITS ---
Test Reason : CP Blood Pressure : */* mmHG Vent. Rate : 97 BPM Atrial Rate : 97 BPM P-R Int : 138 ms QRS Dur : 80 ms QT Int : 348 ms P-R-T Axes : 35 19 30 degrees QTcB Int : 441 ms Normal sinus rhythm Normal ECG When compared with ECG of 22-May-2024 13:57, Nonspecific T wave abnormality no longer evident in Lateral leads QT has lengthened Referred By: Generic ED Physician Electronically Signed By: Mann Rayo
--- NOTE | 2025-01-18 10:28 | ED_ITS ---
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 Overall feeling unwell. Denies sick contacts. Patient is not on a blood thinner. She denies shortness of breath, headache, vision changes, dizziness, weakness, abdominal pain, nausea and vomiting Related Data Home Medications ?Medication ?Instructions ?Recorded ?Confirmed famotidine 20 mg tablet 20 mg PO BID 07/15/22 colestipol 1 gram tablet 2 g PO BID 05/23/24 12/21/24 gabapentin 100 mg capsule 100 mg PO BID 05/23/2412/21 loperamide 2 mg capsule 2 mg PO Q4H PRN diarrhea 12/21/24 Previous Rx's ?Medication ?Instructions ?Recorded midodrine 5 mg tablet 2.5 mg (1/2 x 5 mg) PO TID # 30 tabs 05/25/24 ondansetron 4 mg disintegrating 4 mg PO Q8H PRN nausea and 08/02/24 tablet vomiting #20 tabs polyethylene glycol 3350 17 gram 17 g PO DAILY PRN con stipation 09/19/24 oral powder packet (Miralax) #30 ea lidocaine 5 % topical patch 1 patch topical DAILY #10 ea 09/26/24 (Lidoderm) naloxone 4 mg/actuation nasal 1 spray intranasal Q2M # 2 ea 10/18/24 spray (Narcan) famotidine 20 mg tablet (Pepcid) 20 mg PO BEDTIME #30 tabs 11/28/24 levothyroxine 112 mcg tablet 112 mcg PO DAILY 30 days #30 tabs 11/30/24 cholecalciferol (vitamin D3) 125 125 mcg PO DAILY #30 tabs 12/05/24 mcg (5,000 unit) tablet (Vitamin D3) tamoxifen 20 mg tablet 20 mg PO DAILY #90 tabs 06/26 omeprazole 20 mg capsule,delayed 20 mg PO DAILY #30 ca ps 12/13/24 release oxycodone 30 mg tablet,crush 30 mg PO Q12H #60 tabs resistant,extended release 12 hr (OxyContin) oxycodone 5 mg tablet 5 mg PO Q6H PRN Severe Pain (Scale 01/09/25 Score 7-10) #60 tabs albuterol sulfate 90 mcg/actuation 2 inh inhalation Q4 -6H PRN 01/18/25 breath activated powder inhaler shortness of breath or wheezing #1 ea doxycycline hyclate 100 mg capsule 100 mg PO BID 10 da ys #20 caps 01/18/25 prednisone 20 mg tablet 40 mg (2 x 20 mg) PO DAILY 5 days 01/18/25 #10 tabs Allergies Allergy/AdvReac Type Severity Reaction Status Date / Time No Known Allergies Allergy Verified 01/18/25 09:15 Review of Systems 2 Review of Systems: Yes all other systems are reviewed and are negative PMFSH Past Medical History Attestation statement: The following information was validated with the patient. Source: old records reviewed and nursing notes reviewed Medical History Amenorrhea Obstructive sleep apnea Metastatic malignant neoplasm to breast Hypothyroidism Surgical History Hx laparoscopic cholecystectomy (09/10/24) Hx of bilateral mastectomy Hx of appendectomy Hx of hernia repair Family History Family History Mother Diabetes Hypertension Father Cancer Social History Social History Household Members: Spouse and Family Housing: Apartment Do you presently have visiting nurse or other home services: No Alcohol intake: former Comment: d/c instructions reviewed with pt with assistance of cell repairer. Patient Tobacco Use Status: Former Tobacco user Tobacco use type: Cigarette Second Hand Smoke Exposure: No Advance Directives: No Advance Directives Information Provided: Yes service: No Current occupational status: unemployed Physical Exam ED Exam Exam: Appearance: Alert.? Oriented X3.? No acute distress.? Head: Normocephalic, atraumatic, no step-offs or deformities Eyes: Pupils equal, round and reactive to light.? ENT: Pharynx normal.? Neck: Normal inspection.? Neck supple.? CVS: Normal heart rate and rhythm.? Pulses normal.? Respiratory: No respiratory distress.? Breath sounds normal.? Abdomen: Soft and nontender.? Skin: Skin warm and dry.? Normal skin color.? Normal skin turgor.? Extremities: No lower extremity edema.? No calf ttp, negative Homans bilaterally. 5/5 strength to bilateral upper and lower extremities Back: No midline tenderness, no C-spine tenderness, full range of motion, no CVA tenderness bilaterally Neuro: Oriented X 3.? No motor deficit.? No sensory deficit. CN 2-12 intact Vital Signs: Vital Signs - 24 hr 01/18/25 09:11 01/18/25 11:05 Temperature 98.4 F Pulse Rate 92 82 Respiratory Rate 18 18 Blood Pressure 106/59 L 94/58 L Pulse Oximetry 98 97 Oxygen Delivery Method Room Air Room Air BMI result Body Mass Index 30.6 Vital signs stable Course Reevaluation(s) Reevaluation #1: Patient with pancytopenia appears to be her baseline. Chemistry unremarkable. Negative troponin nonischemic EKG. Pro BNP unremarkable. D-dimer negative. Chest x-ray airspace opacity in right mid lung an upper lung concerning for pneumonia in the appropriate setting she has had symptoms for 1 day however she is immunocompromise therefore will treat for pneumonia. She also tested positive for COVID. Educated patient on diagnosis and treatment plan, answered all question, patient verbalizes understanding. At this time patient will be discharged home, advised to return with new or worsening symptoms. Educated on worrisome signs and symptoms and when to return. At this time I feel comfortable discharge home. Time: 11:26 Medical Decision Making Medical Decision Making [facility] Narrative: 1023 44-year-old female presents with headache, chest discomfort, dry cough, fatigue, malaise, myalgias since yesterday. Physical exam benign History and physical exam concerning for viral illness versus bronchitis. Unlikely pneumonia, PE, ACS. Will rule out metabolic derangements, flu and COVID. Plan labs, imaging Differential Diagnosis Differential Diagnoses: The differential diagnosis associated with the presentation includes (History and physical exam concerning for viral illness versus bronchitis. Unlikely pneumonia, PE, ACS. Will rule out metabolic derangements, flu and COVID.) Admission/Observation Consideration of admission/observation: Escalation of care including admission/observation considered Lab Data [facility] Lab Attestation statement: I reviewed the patient's lab results. 01/18/25 10:40 01/18/25 10:40 Labs: Lab Results 01/18/25 Range/Units 10:40 WBC 2.4 L (4.8-10.8) X10*3/uL RBC 2.61 L (4.20-5.50) X10*6/uL Hgb 9.5 L (12.0-16.0) g/dl Hct 26.2 L (37.0-47.0) % MCV 100.4 H (80.0-98.0) fL MCH 36.4 H (27.0-33.0) pg MCHC 36.3 H (31.0-35.0) g/dl RDW 15.5 (11.0-16.0) % Plt Count 74 L (160-400) X10*3/uL MPV 10.6 (9.4-12.3) fL PT 13.4 H (10.9-12.4) SEC INR 1.2 H (0.9-1.1) D-Dimer High Sensitivty < 150 NG/ML Sodium 137 (135-145) mmol/L Potassium 3.7 (3.3-5.1) mmol/L Chloride 107 (96-108) mmol/L Carbon Dioxide 23 (22-29) mmol/L Anion Gap 11 L (12-20) BUN 8 L (9-16) mg/dL Creatinine 0.72 (0.5-1.4) mg/dL Estim Creat Clear Calc 110.2 Estimated GFR > 60 Random Glucose 94 (60-115) mg/dL Calcium 8.5 D (8.4-10.2) mg/dL Magnesium 1.9 (1.6-2.6) mg/dL Total Bilirubin 0.7 (0.0-1.0) mg/dL AST 43 H (5-31) U/L ALT 19 (0-31) U/L Alkaline Phosphatase 61 (39-117) U/L Troponin I High Sens < 2.7 (<3.5-17.0) ng/L NT-Pro-B Natriuret Pep 113.6 (<300) pg/mL Total Protein 7.1 (6.5-8.0) g/dL Albumin 3.4 L (3.5-5.0) g/dL COVID-19 (JOSSELINE) Positive A (Negative) COVID-19 Clin Com See Note Influenza Type A (GOSIA) Negative (Negative) Influenza Type B (GOSIA) Negative (Negative) Influenza A & B Note See Note Independent Interpretation I performed an independent interpretation of an: EKG (Ventricular rate 97 normal sinus rhythm no ischemic changes noted. Nondiagnostic for chief complaint) and Plain X-Ray Radiology Impression Discussion of test interpretation with radiology: I have reviewed the radiologist's reading. External Record Review External record reviewed: Inpatient record, Office record, Outpatient record, Prior outpatient labs, Prior outpatient radiology, Primary care record and Outside ED record Critical Care Time Critical Care Time Critical Care Time: No Discharge Plan Discharge Clinical Impression: COVID-19, Pneumonia Patient Disposition: Home, Self-Care Instructions: Pneumonia (ED), COVID-19 (Coronavirus Disease 2019) (ED) Additional Instructions: Take your medications as prescribed. If you were prescribed antibiotics today, it is important that you take your medication to their entirety, do not skip any doses, do not finish them early. Follow-up with your primary care provider this week. Return to the emergency department with new or worsening symptoms. Such as fevers, chills, chest pain, shortness of breath, nausea, vomiting, dizziness, headache, vision changes, lethargy In case of emergency call 911 Prescriptions: New doxycycline hyclate 100 mg capsule 100 mg PO BID 10 Days Qty: 20 0RF prednisone 20 mg tablet 40 mg PO DAILY 5 Days Qty: 10 0RF albuterol sulfate 90 mcg/actuation aerosol powdr breath activated 2 inh inhalation Q4-6H PRN (Reason: shortness of breath or wheezing) Qty: 1 0RF No Action ondansetron 4 mg tablet,disintegrating 4 mg PO Q8H PRN (Reason: nausea and vomiting) Qty: 20 0RF polyethylene glycol 3350 [Miralax] 17 gram Powder In Packet 17 g PO DAILY PRN (Reason: constipation ) Qty: 30 2RF lidocaine [Lidoderm] 5 % Adhesive Patch,Medicated 1 patch TOPICAL DAILY Qty: 10 2RF Rx Instructions: leave on most painful area for up to 12 hrs naloxone [Narcan] 4 mg/actuation [place],Non-Aerosol 1 spray INTRANASAL Q2M Qty: 2 1RF Rx Instructions: spray 1 dose into ONE nostril; alternate nostrils w each dose until help arrives famotidine [Pepcid] 20 mg Tablet 20 mg PO BEDTIME Qty: 30 3RF tamoxifen 20 mg Tablet 20 mg PO DAILY Qty: 90 1RF cholecalciferol (vitamin D3) [Vitamin D3] 125 mcg (5,000 unit) Tablet 125 mcg PO DAILY Qty: 30 3RF omeprazole 20 mg Capsule,Delayed Release(Dr/Ec) 20 mg PO DAILY Qty: 30 0RF Rx Instructions: Take every morning on empty stomach and wait 30-45 min before you eat or drink. oxycodone 5 mg Tablet 5 mg PO Q6H PRN (Reason: Severe Pain (Scale Score 7-10)) Qty: 60 0RF Rx Instructions: Partial Fill upon patient request. oxycodone [OxyContin] 30 mg Tablet,Oral Only,Ext.Rel.12 Hr 30 mg PO Q12H Qty: 60 0RF Rx Instructions: Partial Fill upon patient request. loperamide 2 mg capsule 2 mg PO Q4H PRN (Reason: diarrhea) gabapentin 100 mg capsule 100 mg PO BID colestipol 1 gram tablet 2 g PO BID midodrine 5 mg Tablet 2.5 mg PO TID Qty: 30 0RF famotidine 20 mg tablet 20 mg PO BID levothyroxine 112 mcg tablet 112 mcg PO DAILY 30 Days Qty: 30 12RF Referrals: Theron Richard NP [Primary Care Provider, Internal Medicine] Print Language: Upper Sorbian
[2025-01-18 10:49] LABS: Hematocrit 26.2 % (37.0-47.0); Hemoglobin 9.5 g/dl (12.0-16.0); Imm Gran Abs Auto 0.01 X10*3/uL (0.00-0.03); Imm Gran Pct Auto 0.4 % (0.0-0.4); Lymphocytes Absolute Auto 0.4 X10*3/uL (1.2-4.9); MANUAL DIFF FLAG SCAN; Mean Corpuscular HGB Conc 36.3 g/dl (31.0-35.0); Mean Corpuscular Hemoglobin 36.4 pg (27.0-33.0); Mean Corpuscular Volume 100.4 fL (80.0-98.0); NRBC Abs Auto 0.000 X10*3/uL (0.0-0.012); NRBC Pct Auto 0.0 /100WBC (0.0-0.2); Red Blood Count 2.61 X10*6/uL (4.20-5.50); SCAN SMEAR FLAG 1
[2025-01-18 10:51] LABS: INTERNATIONAL NORM RATIO 1.2 (0.9-1.1); Prothrombin Time 13.4 SEC (10.9-12.4)
[2025-01-18 10:52] LABS: Platelet Count 74 X10*3/uL (160-400); White Blood Count 2.4 X10*3/uL (4.8-10.8)
[2025-01-18 11:05] VITALS: BP 94/58; PULSE 82; RESP 18; O2SAT 97
[2025-01-18 11:05] LABS: IDNOW Serial# 58CA691E; Influenza B2 Negative (Negative)
[2025-01-18 11:06] LABS: COVID-19 Test Positive (Negative); IDNOW Serial# 55D5AD1C
--- OUTSIDE RECORDS SUMMARY | 2025-01-18 11:07 | XMS_ITS | Clinical Summary ---
Author Organization [facility], Address [address] [place] [address] Phone Care Team Providers Care Ward Nurse Name Role Phone Theron Richard INSTALLATION & MAINTENANCE EXECUTIVE Primary Care Provider [phone] Allergies No known active allergies Medications acetaminophen [...] Malignant tumor of breast 07/06/2023 Binge eating disorder, unspecified 07/06/2023 Depressive disorder 07/06/2023 Fibromyalgia 07/06/2023 Luann's [...] PCV) 02/03/1999 Influenza Vaccine (#1) [address] [place] [address] Medicaid Care Teams Ward Nurse Relationship Specialty Start Date End Date Theron Richard NP [address] [place] PCP - General Nurse Practitioner 07/12/23
--- OUTSIDE RECORDS SUMMARY | 2025-01-18 11:07 | XMS_ITS | Clinical Summary ---
Author Organization [address] [place] [address] Address [address] [place] [address] Phone Care Team Providers Care X Ray Equipment Servicer Name Role Phone Richar Montano MD Primary Care Provider [phone] Surgical History Surgery Date Site/Laterality Comments APPENDECTOMY PROCEDURE: NM APPENDECTOMY Social History Tobacco Use Types Packs/Day [...] Cervical Cancer Screening: P ap Smear 02/03/2001 HPV Vaccines (1 - 3-dose SCD M series) 02/03/2007 Depression Screening 04/04/2024 HIV Screening 08/07/2024 Hepatitis C Screening 08/07/2024 Social Influencers of Health Screening 08/07/2024 COVID-19 Vaccine ( - 2023-2 5 season) 2024 Influenza Vaccine (#1) 2024 RSV Immunization Adult Patie nts (1 - 1-dose 75+ series) 02/03/2055 HIB [...] MEDICAID ADVANTAGE [place] - [place] Care Teams X Ray Equipment Servicer Relationship Specialty Start Date End Date Richar Montano MD [address] [address] PCP - General Internal Medicine 11/09/19
--- OUTSIDE RECORDS SUMMARY | 2025-01-18 11:07 | XMS_ITS | Encounter Summary ---
Author Organization [facility] Address [address] [place] [address] Care Team Providers Care Railroad Car Truck Builder Name Role Phone Unavailable Primary Care Provider [...]
--- OUTSIDE RECORDS SUMMARY | 2025-01-18 11:07 | XMS_ITS | Data Portability ---
Author Organization [place] [facility] Address [address] [place] [phone] Care Team Providers Care Vault Teller Name Role Phone KLAUS MAHARAJ Referring Provider Assessment Encounter Date Assessment Date Assessment LastModified by Organization Details LastModified Time 01/10/2025 01/10/2025 Stefani Mandujano is a 44-year-old female with hoarseness and nosebleeds. 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 The hoarseness is attributed to swelling of the vocal folds and nodules, which are likely unrelated to her cancer. The vocal cords are moving normally, and no tumors or growths were observed during the examination. The nosebleeds may be exacerbated by chemotherapy irritating the nasal membranes. The patient was advised to avoid blowing her nose and to use saline solution three to four times daily along with [place] Jelly in the nose at night to alleviate dryness and irritation. An order was placed for the patient to see a voice therapist at [facility] for therapy to address the vocal fold nodules. FOLLOW-UP: The patient will follow up with the voice therapist at [facility] as scheduled. Procedure Documentation: - Anesthesia spray applied to the nose - Nasal endoscopy performed to evaluate nasal passages and vocal cords sirisha Not available 01/10/2025 11:44:41 Plan of Treatment Reminders Order Date Submit Date Provider Last Modified By Organization Details Last Modified Time Details Appointments None recorded. Lab None recorded. Referral speech therapy referral 2024 025 [facility], [address] [place] [address], [id number], 10:02:15 Procedures None recorded. Surgeries None recorded. Imaging None recorded. Medication Orders None recorded. Patient TargetsNo targets recorded. Patient Instructions Encounter Date Encounter Id Patient Instructions Last Modified By Organization Details Last Modified Time 01/10/2025 [id number] nosebleed information sirisha Not available 01/10/2025 11:44:41 - Avoid blowing the nose. - Use saline solution three to four times daily. - Apply [place] Jelly in the nose at night. - Follow up with the voice therapist at [facility]. [email or web address] Not available 01/10/2025 11:42:46 Please note: Parts of this encounter note have been generated by AI based on audio conversation. Patient consent was required prior to utilizing this technology. Content review was required prior to finalizing the note. [email or web address] Not available 01/10/2025 11:42:45 Reason for Referral Referring Physician: Clive camarena, Otolaryngology, Encounter Date: 01/10/2025 Problems Name Problem SNOMED Code Status Onset Date Resolution Date Notes Provider Name and Address Organization Details Recorded Time Primary malignant neoplasm of breast 368507224 Active 025 CLIVE MONROE MD [address] [place] [address], [place], [phone], [facility] - [facility] 11:41:31 Bleeding from nose 065583785 Active 025 CLIVE MONROE MD [address] [place] [address], [place], [phone], [facility] - [facility] 11:41:35 Hoarse 81169864 Active 025 CLIVE MONROE MD [address] [place] [address], [place], [address], [facility] - [facility] 5 11:41:40 Singers' nodes 31008033 Active 025 CLIVE MONROE MD [address] [place] [address], [place], [phone], [place] - [facility] 11:41:45 Problem Notes None recorded. Procedures Surgical History Date Name Laterality Status Provider Name and Address Organization Details Recorded Time 01/11/20 25 [id number] completed CLIVE LEVIN MD [address] [place] [address], [phone], [place] - [facility] 01/10/2025 11:40:58 excision of bilateral breasts completed Aleida Haro [facility] 01/10/2025 11:13:45 appendectomy completed Aleida Haro [facility] 01/10/2025 11:13:51 hernia repair completed Aleida Haro [facility] 01/10/2025 11:13:56 Imaging Results None recorded. Procedure Notes None recorded. Medical Equipment None Reported. Medications Name Sig Start Date Stop Date Status Note LastModified by Organization Details LastModified Time Anti-Diarrh eal (loperamide ) 2 mg tablet TAKE 1 TABLET BY MOUTH EVERY 4 HOURS FOR LOOSE STOOL 01/10 completed Not Available Not Available Not Available buspirone 5 mg tablet TAKE 3 TABLETS BY MOUTH TWICE DAILY 01/10 completed Not Available Not Available Not Available loperamide 2 mg capsule TAKE 1 CAPSULE BY MOUTH EVERY 4 HOURS NEEDED FOR LOOSE STOOLS 01/10 completed Not Available Not Available Not Available midodrine 5 mg tablet TAKE 2 TABLETS BY MOUTH THREE TIMES DAILY active Not Available Not Available No t Available lidocaine-p rilocaine 2.5 %-2.5 % topical cream APPLY TOPICALLY TO THE AFFECTED AREA 1 TIME 01/10 completed Not Available Not Available Not Available levothyroxi ne 50 mcg tablet TAKE 1 TABLET BY MOUTH DAILY active Not Available Not Available No t Available pantoprazol e 40 mg tablet,león yed release TAKE 1 TABLET BY MOUTH DAILY 01/10 completed Not Available Not Available Not Available gabapentin 300 mg capsule TAKE 1 CAPSULE BY MOUTH TWICE DAILY 01/10 completed Not Available Not Available Not Available gabapentin 100 mg capsule TAKE 1 CAPSULE BY MOUTH TWICE DAILY. MAY CAUSE DROWSINES S 01/10 completed Not Available Not Available Not Available cefuroxime axetil 500 mg tablet TAKE 1 TABLET BY MOUTH EVERY 12 HOURS 01/10 completed Not Available Not Available Not Available oxycodone-a cetaminophe n 7.5 mg-325 mg tablet TAKE 2 TABLETS BY MOUTH EVERY 4 HOURS NEEDED FOR PAIN. NOT TO EXCEED 8 TABLETS DAILY. DO NOT TAKE ADDITIONA L TYLENOL 01/10 completed Not Available Not Available Not Available ondansetron 4 mg disintegrat ing tablet DISSOLVE 1 TABLET ON THE TONGUE EVERY 8 HOURS NEEDED FOR NAUSEA OR VOMITING active Not Available Not Available No t Available colestipol 1 gram tablet TAKE 2 TABLETS BY MOUTH TWICE DAILY active Not Available Not Available No t Available tamoxifen 20 mg tablet TAKE 1 TABLET BY MOUTH DAILY active Not Available Not Available No t Available amoxicillin 875 mg-potassiu m clavulanate 125 mg tablet TAKE 1 TABLET BY MOUTH TWICE DAILY 12/31 completed Not Available Not Available Not Available oxycodone 5 mg tablet TAKE 1 TABLET BY MOUTH EVERY 6 HOURS NEEDED FOR SEVERE PAIN active Not Available Not Available No t Available mirtazapine 7.5 mg tablet TAKE 1 TABLET BY MOUTH EVERY NIGHT AT BEDTIME 01/10 completed Not Available Not Available Not Available potassium chloride ER 20 mEq tablet,exte nded release TAKE 1 TABLET BY MOUTH DAILY FOR 10 DAYS 01/10 completed Not Available Not Available Not Available OxyContin 30 mg tablet,simeon h resistant,e xtended release TAKE 1 TABLET BY MOUTH EVERY 12 HOURS active Not Available Not Available No t Available desvenlafax ine succinate ER 25 mg tablet,exte nded release 24 hr TAKE 1 TABLET BY MOUTH DAILY 01/10 completed Not Available Not Available Not Available naloxone 4 mg/actuatio n nasal spray CALL 911. SPR CONTENTS OF ONE SPRAYER (0.1ML) INTO ONE NOSTRIL. REPEAT IN 2-3 MIN IF SYMPTOMS OF OPIOID EMERGENCY PERSIST, ALTERNATE NOSTRILS active Not Available Not Available No t Available Vitals Date Recorded Body height Body weight Systolic And Diastolic Provider Name and Address Organization Details Last Updated DateTime 01/10/2025 165.1 cm 70721.44 g 104/73 mm[Hg] Aleida Haro [place] - [facility] 01/10/2025 11:19:59 Social History None recorded. Functional Status None recorded. Mental Status None recorded. Family History Nothing Reported. Medical History Condition Response Hyperlipidemia Y Cancer Y Fibromyalgia Y Thyroid Problems Y Depression Y Sleep Disorder Y Gynecological HistoryNo gynecological history recorded. Obstetrics History GPAL:G 0 P 0 0 0 0 Past Encounters Encounter ID Performer Location Encounter Start Date Encounter Closed Date Diagnosis/Indication Diagnosis SNOMED-CT Code Diagnosis ICD10 Code Diagnosis IMO Codes Diagnosis Note [id number] CLIVE HARRISON MD [facility] [address] [address] 01/10/2025 10:44:07 01/10/2025 11:44:53 Primary malignant neoplasm of breast 413264254 C50.911 72560942 Bleeding from nose 66828 6005 R04.0 2558 Hoarse 11996255 R49.0 [id number] Singers' nodes 09547604 J38.2 154897 Health Concerns Section Related Observation LastModified by Organization Detai ls LastModified Time None Recorded Concern Status LastModified by Organization Details LastModified Time None Recorded Advance Directives Directive None Recorded Payers Insurance Date Sequence Insurance Name Policy Number Policy Rasmussen Covered Member ID Rasmussen Member ID Guarantor Name 01/10/2025 1 [facility] (MEDICAID HMO) [id number] Stefani Mandujano [id number] Stefani Mandujano Notes Date Note Type Note Provider Name and Address Organization Details Recorded Time 01/10/2025 text/html Stefani Mandujano is a 44-year-old female who presents for evaluation of hoarseness and nosebleeds. The patient reports losing her voice approximately two and a half months ago, with no specific inciting event such as screaming or yelling. She denies any difficulties with eating, drinking, or swallowing. 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 She underwent a bilateral mastectomy in , and the cancer recurred in the right breast in with subsequent metastasis. She is currently taking thyroid medication and oxycodone for pain management related to her cancer. The patient has not had any recent PET scans or chest imaging but recalls undergoing an echocardiogram on the . Her cancer treatments are managed at [facility] by Dr. Jolene Maharaj. An bulk sugar handler was present during the visit to facilitate communication. CLIVE LEVIN MD [address] [place], [place] [address], [place], [address], [facility] - [facility] 01/10/2025 11:45:03 OBGyn Episode No OBEpisode recorded.
--- OUTSIDE RECORDS SUMMARY | 2025-01-18 11:07 | XMS_ITS | Clinical Summary ---
Author Organization [employer] Address [address] [facility] [address] [place] [address] Care Team Providers Care Electrical Line Worker Name Role Phone Unavailable Primary Care [...]
--- OUTSIDE RECORDS SUMMARY | 2025-01-18 11:07 | XMS_ITS | Encounter Summary ---
Author Organization [employer] Address 75 [facility] 7t [place] [address] Care Team Providers Care Solvent Plant Operator Name Role Phone Unavailable Primary Care Provider Unavailabl e Reason for Visit * Reason Onset Date Comments appt cancer patient 05/09/2024 Encounter Details Date Type Department Care Team (Late st Contact Info) Description 05/09/2024 Telephone [facility] [address] [place], [place] [phone] Jyoti Rojas DDS [address] [place], [place] [phone] appt cancer patient Social History Tobacco Use [...]
--- OUTSIDE RECORDS SUMMARY | 2025-01-18 11:07 | XMS_ITS | Encounter Summary ---
Author Organization [facility], Address [address] [place] [address] Phone Care Team Providers Care White Washer Piler Name Role Phone Theron Richard NP Primary Care Provider [phone] Encounter Details Date Type Department Care Team (Late st Contact Info) Description 07/19/2023 Documentation Only [facility] - [facility] Center [address] [place] [address] [place] [phone] Liane Luis [address] [place] [phone] Social History Tobacco Use Types Packs/Day [...] on filedocumented in this encounter Care Teams White Washer Piler Relationship Specialty Start Date End Date Theron Richard NP [address] [place] [address] PCP - General Nurse Practitioner 07/12/23 documented as of this encounter
[2025-01-18 11:08] LABS: D Dimer High Sensitivity < 150 NG/ML; NT Pro B Type Natriuretic Pept 113.6 pg/mL (<300)
[2025-01-18 11:11] LABS: Alanine Aminotransferase 19 U/L (0-31); Albumin Level 3.4 g/dL (3.5-5.0); Alkaline Phosphatase 61 U/L (39-117); Anion Gap 11 (12-20); Aspartate Amino Transferase 43 U/L (5-31); Blood Urea Nitrogen 8 mg/dL (9-16); Calcium 8.5 mg/dL (8.4-10.2); Carbon Dioxide 23 mmol/L (22-29); Chloride 107 mmol/L (96-108); Creatinine Clr Calc Pharmacy 110.2; Estimated Glomerular Filt Rate > 60; Magnesium 1.9 mg/dL (1.6-2.6); Potassium 3.7 mmol/L (3.3-5.1); Sodium 137 mmol/L (135-145); Total Protein 7.1 g/dL (6.5-8.0)
[2025-01-18 11:18] LABS: Troponin-I High Sensitivity < 2.7 ng/L (<3.5-17.0)
[2025-01-18] MEDS: Albuterol Sulfate 90 MCG 8 GM INHALER 8 PUFF INHALE (11:33)
[2025-01-18 12:12] VITALS: BP 102/54; PULSE 108; RESP 16; TEMP 36.8; O2SAT 100
== END 2025-01-18 12:13 | disposition home or self-care (01) ==
PROVIDERS: Physician Assistant; Emergency Provider Emergency Medicine; PCP Nurse Practitioner Family
DX: R50.9 Fever, unspecified (principal); R51.9 Headache, unspecified; M79.10 Myalgia, unspecified site; R07.89 Other chest pain; R05.9 Cough, unspecified; R06.02 Shortness of breath; Z11.52 Encounter for screening for COVID-19; Z79.899 Other long term (current) drug therapy; Z87.891 Personal history of nicotine dependence
CPT/HCPCS: 71045; 80053; 83735; 83880; 84484; 85025; 85379; 85610; 87502; 87635; 93005; 99284

== ENCOUNTER → 2025-01-18 09:15 | Outpatient (BNV) | payer OTHER, SELFPAY | PROVIDERS: Emergency Provider Emergency Medicine; PCP Nurse Practitioner Family; Visit Provider Internal Medicine Cardiovascular Disease | DX: R07.9 Chest pain, unspecified (principal) | CPT/HCPCS: 93010 ==

== ENCOUNTER → 2025-01-18 10:29 | Outpatient (BNV) | payer OTHER, SELFPAY | PROVIDERS: Emergency Provider Emergency Medicine; PCP Nurse Practitioner Family; Visit Provider Radiology Diagnostic Radiology | DX: R91.8 Other nonspecific abnormal finding of lung field (principal) | CPT/HCPCS: 71045 ==

== ENCOUNTER → 2025-01-30 14:38 | Outpatient (REF) | payer OTHER, SELFPAY ==
--- NOTE | 2025-01-30 14:42 | CA_ITS ---
Transthoracic Echocardiogram Patient (Last, First, Middle): Stefani Mandujano L Gender: Female Date of : 1980 Age: 44 Procedure Date: 01/30/2025 Procedure Type: Transthoracic Echocardiogram Location: OP Height: 167.64 cm Weight: 85.73 kg BSA: 1.95 m2 Heart Rate: bpm BP: 100 / 60 mmHg Wedding Photographer: TO Referring MD: Alexandra Maharaj MD Symptoms: Breast cancer on treatment Study Quality: Fair/Contrast ECG Rhythm: Sinus Conclusions: - The left ventricular systolic function is normal. The calculated ejection fraction is 58% by biplane method. Findings Procedure Information Contrast agent, definity, is being given per protocol without apparent complications. Left Ventricle Normal left ventricular cavity size. There is normal left ventricular wall thickness. The left ventricular systolic function is normal. The calculated ejection fraction is 58% by biplane method. There is no evidence of regional wall motion abnormalities. LV peak GLS -19.5%. Venous The inferior vena cava is normal in size and collapses greater than 50% with inspiration. Prior Study Comparison No significant change compared to prior study dated: 10/19/2024. Measurements 2D Linear Measurements IVSd: 0.72 0.6-0.9/0.6-1.0 cm LVIDd: 5.04 3.9-5.3/4.2-5.9 cm LVIDd Index: 2.58 2.4-3.2/2.2-3.1 cm/m2 LVIDs: 3.10 2.0-3.6 cm LVPWd: 0.70 0.7-1.1 cm LA Diam: 3.40 2.7-3.8/3.0-4.0 cm LAIDs Index: 1.74 1.5-2.3 cm/m2 LV Mass: 147.49 67-162/88-224 g LV Mass Index: 75.63 43-95/49-115 g/m2 LVOT Diam: 2.00 3.0+(-)1.3 cm 2D Systolic Function EF 4C: 57.60 >55% EF 2C: 61.10 >55% EF BiP: 57.70 >55% LVOT LVOT Pk Elder: 0.96 LVOT Mn Elder: 0.66 LVOT VTI: 0.22 LVOT Pk Grad: 4.00 LVOT Mn Grad: 2.00 LVOT Diam: 2.00 LVOT Area: 3.14 Tricuspid Valve RA Press: 3.00 Updated in Other Vendor System with Status of Final Peng Somers MD electronically signed on 02/01/2025 12:01:07 PM with status of Final
--- NOTE | 2025-01-30 14:42 | ECG_ITS ---
Test Reason : C78.00 Blood Pressure : */* mmHG Vent. Rate : 73 BPM Atrial Rate : 73 BPM P-R Int : 148 ms QRS Dur : 86 ms QT Int : 394 ms P-R-T Axes : 26 26 48 degrees QTcB Int : 434 ms Normal sinus rhythm Normal ECG When compared with ECG of 18-Jan-2025 09:17, No significant change was found Referred By: James Murray Electronically Signed By: JESUS KESSLER
--- OUTSIDE RECORDS SUMMARY | 2025-01-30 19:01 | XMS_ITS | Clinical Summary ---
Author Organization [employer] Address 75 [facility] 7t [place] [address] Care Team Providers Care Dean Of Graduate Studies Name Role Phone Unavailable Primary Care Provider [...]
--- OUTSIDE RECORDS SUMMARY | 2025-01-30 19:01 | XMS_ITS | Encounter Summary ---
Author Organization [employer] Address 75 [facility] 7t [place] [address] Care Team Providers Care Fish Checker Name Role Phone Unavailable Primary Care Provider Unavailabl e Reason for Visit * Reason Onset Date Comments appt cancer patient 05/09/2024 Encounter Details Date Type Department Care Team (Late st Contact Info) Description 05/09/2024 Telephone [facility] [address] [place], [place] [phone] Jyoti Rojas DDS [address] [place], [place] [phone] appt cancer patient Social History Tobacco Use [...]
--- OUTSIDE RECORDS SUMMARY | 2025-01-30 19:01 | XMS_ITS | Clinical Summary ---
Author Organization [address] [place] [address] Address [address] [place] [address] Phone Care Team Providers Care Inspector Precision Name Role Phone Richar Montano MD Primary Care Provider [phone] Surgical History Surgery Date Site/Laterality Comments APPENDECTOMY PROCEDURE: [place] APPENDECTOMY Social History Tobacco Use Types Packs/Day [...] MEDICAID ADVANTAGE MEDICAID - [place] Care Teams Inspector Precision Relationship Specialty Start Date End Date Richar Montano MD [address] [address] PCP - General Internal Medicine 11/09/19
--- OUTSIDE RECORDS SUMMARY | 2025-01-30 19:01 | XMS_ITS | Clinical Summary ---
Author Organization [facility], Address [address] [place] [address] Phone Care Team Providers Care Triage Specialist Name Role Phone Theron Richard FERRYBOAT OPERATOR HELPER Primary Care Provider [phone] Allergies No known active allergies Medications acetaminophen [...] PCV) 02/03/1999 Influenza Vaccine (#1) [address] [place] [address] Medicaid Care Teams Triage Specialist Relationship Specialty Start Date End Date Theron Richard NP [address] [place] PCP - General Nurse Practitioner 07/12/23
--- OUTSIDE RECORDS SUMMARY | 2025-01-30 19:01 | XMS_ITS | Encounter Summary ---
Author Organization [facility] Address [address] [facility] 7t [place] [address] Care Team Providers Care Community Relations Representative Name Role Phone Unavailable Primary Care Provider [...]
--- OUTSIDE RECORDS SUMMARY | 2025-01-30 19:01 | XMS_ITS | Data Portability ---
Author Organization [place] [facility], [facility] Address [address] [place] [address] Care Team Providers Care Boat Outfitter Name Role Phone KLAUS MAHARAJ Referring Provider [phone] Assessment Encounter Date Assessment Date Assessment LastModified [...] patient to see a voice therapist at [facility] for therapy to address the vocal fold nodules. FOLLOW-UP: The patient will follow up with the voice therapist at [facility] as scheduled. Procedure Documentation: - Anesthesia spray applied to the nose - Nasal endoscopy performed to evaluate nasal passages and vocal cords sirisha Not available 01/10/2025 11:44:41 Plan of Treatment Reminders Order Date Submit Date Provider Last Modified By Organization Details Last Modified Time Details Appointments None recorded. Lab None recorded. Referral speech therapy referral 2024 025 [facility], [address] [place] [address], [id number], 10:02:15 Procedures None recorded. Surgeries None recorded. Imaging None recorded. Medication Orders None recorded. Patient TargetsNo targets recorded. Patient Instructions Encounter Date Encounter Id Patient Instructions Last Modified By Organization Details Last Modified Time 01/10/2025 [id number] nosebleed information sirisha Not available 01/10/2025 11:44:41 - Avoid blowing the nose. - Use saline solution three to four times daily. - Apply [place] Jelly in the nose at night. - Follow up with the voice therapist at [facility]. [email or web address] Not available 01/10/2025 11:42:46 Please [...] Recorded Time Primary malignant neoplasm of breast 373887330 Active 025 CLIVE MONROE MD [address] [place] [address], [place], [phone], [facility] - [facility] 11:41:31 Bleeding from nose 821268613 Active 025 CLIVE MONROE MD [address] [place] [address], [place], [phone], [facility] - [facility] 11:41:35 Hoarse 01764221 Active 025 CLIVE MONROE MD [address] [place] [address], [place], [address], [facility] - [facility] 5 11:41:40 Singers' nodes 37006952 Active 025 CLIVE MONROE MD [address] [place] [address], [place], [address], [place] - [facility] 11:41:45 Problem Notes None recorded. Procedures Surgical History Date Name Laterality Status Provider Name and Address Organization Details Recorded Time 01/11/20 25 [id number] completed CLIVE LEVIN MD [address] [place] [address], [phone], [place] - [facility] 01/10/2025 11:40:58 excision of bilateral breasts completed Aleida Haro [facility] 01/10/2025 11:13:45 appendectomy completed Aleida Haro [facility] 01/10/2025 11:13:51 hernia repair completed Aleida Haro [facility] 01/10/2025 11:13:56 Imaging Results None recorded. [...] Details Last Updated DateTime 01/10/2025 165.1 cm 01039.44 g 104/73 mm[Hg] Aleida Haro [place] - [facility] 01/10/2025 11:19:59 Social History None recorded. [...] ICD10 Code Diagnosis IMO Codes Diagnosis Note [id number] CLIVE HARRISON MD [facility] [address] [address] 01/10/2025 10:44:07 01/10/2025 11:44:53 Primary malignant neoplasm of breast 376743355 C50.911 54720774 Bleeding from nose 44516 6005 R04.0 2558 Hoarse 93983978 R49.0 440940 Singers' nodes 12277978 J38.2 [id number] Health Concerns Section Related Observation LastModified by Organization Detai ls LastModified Time None Recorded Concern Status LastModified by Organization Details LastModified Time None Recorded Advance Directives Directive None Recorded Payers Insurance Date Sequence Insurance Name Policy Number Policy Rasmussen Covered Member ID Rasmussen Member ID Guarantor Name 01/10/2025 1 [facility] (MEDICAID HMO) [id number] Stefani Mandujano [id number] Stefani Mandujano Notes Date Note Type Note [...] . Her cancer treatments are managed at [facility] by Dr. Jolene Maharaj. An nurse auditor was present during the visit to facilitate communication. CLIVE LEVIN MD [address] [place], [place] [address], [place], [address], [facility] - [facility] 01/10/2025 11:45:03 OBGyn Episode No OBEpisode recorded.
--- OUTSIDE RECORDS SUMMARY | 2025-01-30 19:01 | XMS_ITS | Encounter Summary ---
Author Organization [facility], Address [address] [place] [address] Phone Care Team Providers Care Town Justice Name Role Phone Theron Richard NP Primary Care Provider [phone] Encounter Details Date Type Department Care Team (Late st Contact Info) Description 07/19/2023 Documentation Only [facility] - Vascular Access Center [address] [place] [address] [place] [phone] Liane Luis [address] [place] [phone] Social History Tobacco Use Types Packs/Day [...] on filedocumented in this encounter Care Teams Town Justice Relationship Specialty Start Date End Date Theron Richard NP [address] [place] [address] PCP - General Nurse Practitioner 07/12/23 documented as of this encounter
== END ==
LOC: HO.CARD 14:38
PROVIDERS: PCP Nurse Practitioner Family; Visit Provider Internal Medicine Medical Oncology
DX: C78.00 Secondary malignant neoplasm of unspecified lung (principal); C50.911 Malignant neoplasm of unspecified site of right female breast
CPT/HCPCS: 93005; 93308; Q9957

== ENCOUNTER → 2025-01-30 14:42 | Outpatient (BNV) | payer OTHER, SELFPAY | PROVIDERS: PCP Nurse Practitioner Family; Visit Provider Internal Medicine | DX: C78.00 Secondary malignant neoplasm of unspecified lung (principal) | CPT/HCPCS: 93010 ==

== ENCOUNTER 2025-02-07 08:23 | Outpatient (REF) | payer OTHER, SELFPAY ==
--- NOTE | ~2025-02-07 | CT_ITS ---
CLINICAL HISTORY: F U on pulmonary metastases.Add on to ct abdomen CT chest with contrast Comparison: CT - CT CHEST W IV CON - 02/07/25 10:[address]/MN/SR - CT CHEST ANGIOGRAPHY WITH IV CONTRAST - 05/22/24 17:54 EST Findings: A left-sided MediPort is present with its tip at the SVC right atrial junction. There is diminished mediastinal adenopathy. The patient is status post right mastectomy. Right upper and right lower lobe reticular and airspace opacities have diminished with scarring and cicatrization noted at the apex. The findings could be in part related to postradiation changes. There is a new right lower lobe perifissural nodule best seen on image number 66 of series 7. There is a new 4 mm nodule of the left lung base seen on image number 100 of series 7. There is mild splenomegaly. The patient is status post cholecystectomy. No acute fractures. IMPRESSION: 1. Scarring and cicatrization in the right upper lung zone perhaps related to radiation therapy. 2. New right lower lobe perifissural nodule and new left basilar pulmonary nodule. A metastatic process is not entirely excluded. 3. Splenomegaly. 4. Diminished mediastinal adenopathy. This document has been electronically signed by: Gilberto Skaggs MD on 02/08/2025 10:47:07
--- NOTE | ~2025-02-07 | CT_ITS ---
CLINICAL HISTORY: K80.00 - Calculus of gallbladder with acute cholecystitis without obstru... --- Additional Notes or Special Instructions: Upper abdominal pain, persistent after laparoscopic cholecystectomy CT abdomen and pelvis with contrast Comparison: CT/SR - CT ABDOMEN PELVIS WITHOUT IV CONTRAST - 05/23/24 11:27 EST Findings: No consolidation or effusion. The patient is status post cholecystectomy. There are associated postoperative changes. There may be a small amount of fluid within the gallbladder fossa. There is no biliary ductal dilatation. The liver is otherwise unremarkable. There is splenomegaly. No focal splenic lesions are identified. The rest of the solid organs are normal. No bowel obstruction, pneumoperitoneum, or pneumatosis. Pelvic contents unremarkable. Normal appendix. The bones are intact. IMPRESSION: 1. Postoperative changes related to cholecystectomy. No biliary ductal dilatation. 2. Splenomegaly mildly increased relative to the prior study. This document has been electronically signed by: Gilberto Skaggs MD on 02/08/2025 10:51:17
--- OUTSIDE RECORDS SUMMARY | 2025-02-07 08:46 | XMS_ITS | Encounter Summary ---
Author Organization [employer] Address [address] [facility] 7t [place] [address] Care Team Providers Care Radiation Protection Engineer Name Role Phone Unavailable Primary Care Provider Unavailabl e Reason for Visit * Reason Onset Date Comments appt cancer patient 05/09/2024 Encounter Details Date Type Department Care Team (Late st Contact Info) Description 05/09/2024 Telephone [facility]ULT [facility] [address] [place], [place] [phone] Jyoti Rojas DDS [address] [place], [place] [phone] appt cancer patient Social History Tobacco Use [...]
--- OUTSIDE RECORDS SUMMARY | 2025-02-07 08:46 | XMS_ITS | Clinical Summary ---
Author Organization [address] [place] [address] Address [address] [place] [address] Phone Care Team Providers Care Cream Dipper Name Role Phone Richar Montano MD Primary Care Provider [phone] Surgical History Surgery Date Site/Laterality Comments APPENDECTOMY PROCEDURE: [place] APPENDECTOMY Social History Tobacco Use Types Packs/Day [...] Last Done Comments Breast Cancer Screening 1980 Colorectal Cancer Screening: Colonoscopy 1980 DTaP,Tdap,and Td Vaccines (1 - Tdap) [...] MEDICAID ADVANTAGE MEDICAID - [place] Care Teams Cream Dipper Relationship Specialty Start Date End Date Richar Montano MD [address] [address] PCP - General Internal Medicine 11/09/19
--- OUTSIDE RECORDS SUMMARY | 2025-02-07 08:46 | XMS_ITS | Encounter Summary ---
Author Organization [facility] Address [address] [facility] 7t [place] [address] Care Team Providers Care Venetian Blind Assembler Name Role Phone Unavailable Primary Care [...]
--- OUTSIDE RECORDS SUMMARY | 2025-02-07 08:46 | XMS_ITS | Clinical Summary ---
Author Organization [facility], Address [address] [place] [address] Phone Care Team Providers Care User Interface Designer Name Role Phone Theron Richard DIPLOMATIC INTERPRETER Primary Care Provider [phone] Allergies No known active allergies Medications acetaminophen [...] PCV) 02/03/1999 Influenza Vaccine (#1) 2024 Insurance * Guarantor: Stefani Mandujano Account Type Relation to Patient Date of Phone Billing Address Personal/Family Self [address] [place] [id number] [place] [address] Medicaid Care Teams User Interface Designer Relationship Specialty Start Date End Date Theron Richard NP [address] [place] PCP - General Nurse Practitioner 07/12/23
--- OUTSIDE RECORDS SUMMARY | 2025-02-07 08:46 | XMS_ITS | Clinical Summary ---
Author Organization [employer] Address [address] [facility] 7t [place] [address] Care Team Providers Care Jet Worker Name Role Phone Unavailable Primary Care [...] Health Maintenance Due Date Last Done Comments CT Colonography 1980 Colonoscopy 1980 Colorectal Cancer Screening 1980 Depression Screening 1980 FIT DNA/Cologuard 1980 FIT 1980 FOBT 1980 Sigmoidoscopy 1980 Disability Screening 1980 Alcohol/Substance Use Screening [...]
--- OUTSIDE RECORDS SUMMARY | 2025-02-07 08:46 | XMS_ITS | Encounter Summary ---
Author Organization [facility], Address [address] [place] [address] Phone Care Team Providers Care Piece Marker Small Arms Name Role Phone Theron Richard NP Primary Care Provider [phone] Encounter Details Date Type Department Care Team (Late st Contact Info) Description 07/19/2023 Documentation Only [facility] - V[facility] Access Center [address] [place] [address] [place] [phone] Liane Luis [address] [place] [phone] Social History Tobacco Use Types Packs/Day [...] on filedocumented in this encounter Care Teams Piece Marker Small Arms Relationship Specialty Start Date End Date Theron Richard NP [address] [place] [address] PCP - General Nurse Practitioner 07/12/23 documented as of this encounter
[2025-02-07] MEDS: iohexoL 350 MG/ML 100 ML INFUS..BTL IV (11:25)
[2025-02-07] MEDS: Barium Sulfate Oral (Vanilla) 450 ML ORAL.SUSP 900 ML PO (11:42)
== END 2025-02-07 08:24 | disposition home or self-care (01) ==
LOC: HO.CT 08:23
PROVIDERS: Absent Provider Surgery; PCP Nurse Practitioner Family; Visit Provider Internal Medicine Medical Oncology
DX: K80.00 Calculus of gallbladder with acute cholecystitis without obstruction (principal); C78.00 Secondary malignant neoplasm of unspecified lung
CPT/HCPCS: 71260; 74177; Q9967

== ENCOUNTER → 2025-02-07 08:25 | Outpatient (BNV) | payer OTHER, SELFPAY | PROVIDERS: Absent Provider Surgery; PCP Nurse Practitioner Family; Visit Provider Radiology Diagnostic Radiology | DX: K80.00 Calculus of gallbladder with acute cholecystitis without obstruction (principal); R91.1 Solitary pulmonary nodule; R16.1 Splenomegaly, not elsewhere classified; R59.0 Localized enlarged lymph nodes | CPT/HCPCS: 71260; 74177 ==

== ENCOUNTER 2025-02-16 17:31 | Emergency (ER) | payer OTHER, SELFPAY ==
--- NOTE | ~2025-02-16 | CT_ITS ---
CLINICAL HISTORY: infection?abscess CT humerus with contrast Comparison: CT/SR - CT CHEST W IV CON - 02/07/25 11:09 EST Findings: No drainable fluid collection. The partially visualized lungs demonstrate multifocal airspace opacities/subsegmental atelectasis throughout the right lung. Surgical jessica in the right axillary region with adjacent stranding (6, 35). The inflammation extends to the medial upper arm subcutaneous tissue (7, 62). 7 mm right axillary lymph node (6, 22), likely reactive. No acute osseous abnormality of the right humerus. IMPRESSION: Inflammatory changes in the right axillary region extending into the subcutaneous tissue in the medial right humerus which can be seen with cellulitis or possibly lymphedema. No drainable fluid collection. The inflammation in the right axilla appears similar to February 07, 2025. Subsegmental atelectasis/airspace opacities in the right lobe similar to chest CT February 07, 2025. This document has been electronically signed by: Mel Renteria MD on 02/16/2025 23:35:10
--- NOTE | ~2025-02-16 | US_ITS ---
CLINICAL HISTORY: swelling, redness, oncology patient, r o dvt Venous duplex ultrasound right upper extremity Comparison: None provided Findings: Accessible right upper extremity deep venous segments are fully compressible with normal Doppler color flow and spectral tracings. IMPRESSION: Negative for right upper extremity deep vein thrombosis. This document has been electronically signed by: Mel Renteria MD on 02/16/2025 19:07:53
[2025-02-16 17:34] VITALS: BP 113/64; PULSE 102; RESP 18; TEMP 37.6; O2SAT 96; BMI 31.2
--- NOTE | 2025-02-16 17:37 | ED.URI ---
HPI - URI/Sore Throat General Chief Complaint: General Medical Stated Complaint: Rt arm pain Time Seen by Provider: 02/16/25 20:23 Source: patient Limitations: language barrier History of Present Illness ED Provider: Jenniffer Parra PA-C HPI Narrative: 45-year-old female with a history of stage IV right breast cancer now status post bilateral mastectomy, with a metastatic disease to the lung on chemotherapy, hypothyroidism, who presents with a concern for DVT of the right upper extremity. Patient was sent by Oncology to rule out DVT. She has been experiencing increased swelling of the right upper extremity, she was recently treated for cellulitis. The redness spans over upper arm into the axilla. Denies fever. The patient has a port in the left chest, she has not received any infusions or other therapy that required venous access in the right upper extremity. Related Data Home Medications ?Medication ?Instructions ?Recorded ?Confirmed famotidine 20 mg tablet 20 mg PO BID 07/15/22 12/21/24 colestipol 1 gram tablet 2 g PO BID 05/23/24 12/21/24 gabapentin 100 mg capsule 100 mg PO BID 05/23/24 12/21/24 loperamide 2 mg capsule 2 mg PO Q4H PRN diarrhea 05/23/24 12/21/24 Previous Rx's ?Medication ?Instructions ?Recorded midodrine 5 mg tablet 2.5 mg (1/2 x 5 mg) PO TID #30 tabs 05/25/24 ondansetron 4 mg disintegrating 4 mg PO Q8H PRN nausea and 08/02/24 tablet vomiting #20 tabs polyethylene glycol 3350 17 gram 17 g PO DAILY PRN constipation 09/19/24 oral powder packet (Miralax) #30 ea lidocaine 5 % topical patch 1 patch topical DAILY #10 ea 09/26/24 (Lidoderm) naloxone 4 mg/actuation nasal 1 spray intranasal Q2M #2 ea 10/18/24 spray (Narcan) famotidine 20 mg tablet (Pepcid) 20 mg PO BEDTIME #30 tabs 11/28/24 levothyroxine 112 mcg tablet 112 mcg PO DAILY 30 days #30 tabs 11/30/24 cholecalciferol (vitamin D3) 125 125 mcg PO DAILY #30 tabs 12/05/24 mcg (5,000 unit) tablet (Vitamin D3) tamoxifen 20 mg tablet 20 mg PO DAILY #90 tabs 12/05/24 omeprazole 20 mg capsule,delayed 20 mg PO DAILY #30 caps 12/13/24 release albuterol sulfate 90 mcg/actuation 2 inh inhalation Q4-6H PRN 01/18/25 breath activated powder inhaler shortness of breath or wheezing #1 ea doxycycline hyclate 100 mg capsule 100 mg PO BID 10 days #20 caps 01/18/25 prednisone 20 mg tablet 40 mg (2 x 20 mg) PO DAILY 5 days 01/18/25 #10 tabs Prosthesis, breast #1 ea 01/31/25 mastectomy bra (bra, mastectomy) #6 ea 01/31/25 oxycodone 30 mg tablet,crush 30 mg PO Q12H #60 tabs 02/07/25 resistant,extended release 12 hr (OxyContin) oxycodone 5 mg tablet 5 mg PO Q6H PRN Pain (Scale Score 02/07/25 7-10) #60 tabs doxycycline hyclate 100 mg capsule 100 mg PO BID #19 caps 02/17/25 Allergies Allergy/AdvReac Type Severity Reaction Status Date / Time No Known Allergies Allergy Verified 02/16/25 17:41 Review of Systems Review of Systems: Yes all other systems are reviewed and are negative Constitutional: Constitutional: Denies fatigue and Denies fever(s) Cardiovascular: Cardiovascular: Denies chest pain and Denies dyspnea Respiratory: Respiratory: Denies dyspnea Gastrointestinal: Gastrointestinal: Denies abdominal pain Musculoskeletal: Musculoskeletal: Denies arthralgias and Denies joint swelling Integumentary/Breasts: Skin/Breast: Reports erythema, Reports skin pain, Reports skin swelling, Denies skin ulcer, Denies sores and Denies wounds Endocrine: Endocrine: Denies fatigue [facility] Past Medical History Attestation statement: The following information was validated with the patient. Medical History Amenorrhea Obstructive sleep apnea Metastatic malignant neoplasm to breast Hypothyroidism Surgical History Hx laparoscopic cholecystectomy (09/10/24) Hx of bilateral mastectomy Hx of appendectomy Hx of hernia repair Family History Family History Mother Diabetes Hypertension Father Cancer Social History Social History Household Members: Spouse and Family Housing: Apartment Do you presently have visiting nurse or other home services: No Alcohol intake: former Comment: d/c instructions reviewed with pt with assistance of pharmaceutical service representative. Patient Tobacco Use Status: Former Tobacco user Tobacco use type: Cigarette Smoked in Last 30 Days: No Second Hand Smoke Exposure: No Use of substances other than those prescribed or required for medical reasons: No Advance Directives: No Advance Directives Information Provided: No Patient : No service: No Current occupational status: unemployed Physical Exam Vital Signs: Vital Signs: Last Vital Signs Temp 98.3 F 02/16/25 22:17 Pulse 88 02/16/25 22:17 Resp 16 02/16/25 22:17 BP 100/65 02/16/25 22:17 Pulse Ox 96 02/16/25 22:17 O2 Del Method Room Air 02/16/25 22:17 BMI result Body Mass Index 31.2 Const: Other: Alert Orientation/consciousness: patient oriented x3 Resp: Effort & Inspection: normal respiratory effort Cardio: Other: Normal peripheral perfusion Skin: Other: Warm dry no rash Neuro: General: patient oriented x3, gait normal, no focal motor deficits and CN's II-XI intact bilaterally Extrem: Other: The right upper extremity is edematous with the overlying erythema that tracks into the axilla Psych: Other: Cooperative Course Course Course Narrative: This is a rapid medical exam. Deferred additional HPI, ROS, PE to primary provider. 45 yo female with PMH of mets breast cancer Medications Administered Discontinued Medications Generic Name Dose Route Start Last Admin Trade Name Freq PRN Reason Stop Dose Admin Iohexol 85 ml 02/16/25 22:25 02/16/25 22:26 Iohexol 350 Mg/Ml 100 Ml Infus..Btl IV 02/16/25 22:26 85 ml ONCE ONE Administration Oxycodone HCl 5 mg 02/16/25 21:28 02/16/25 22:34 Oxycodone Hcl Immed Release 5 Mg Tablet PO 02/16/25 21:29 5 mg ONCE ONE Administration Medical Decision Making Medical Decision Making MDM Narrative: 45-year-old female with a history of stage IV right breast cancer now status post mastectomy, with a metastatic disease to the lung on chemotherapy, hypothyroidism, who presents with a concern for DVT of the right upper extremity. Patient was sent by Oncology to rule out DVT. She has been experiencing increased swelling of the right upper extremity, she was recently treated for cellulitis. The redness spans over upper arm into the axilla. Denies fever. The patient has a port in the left chest, she has not received any infusions or other therapy that required venous access in the right upper extremity. Problem: Metastatic disease, on chemotherapy History: Per patient I have considered the following differential diagnoses: Cellulitis, purulent cellulitis, lymphedema, DVT, abscess Plan: Ultrasound obtained from triage, there was no DVT. There is significant swelling of the right upper arm, with the overlying erythema consistent with cellulitis. I want to be sure there was no abscess formation. Adding on a CT. Screening labs were already completed and in process, including blood cultures, lactic is 1.9, I have independently reviewed the following tests: Labs: Pancytopenic at baseline, ESR 85, no electrolyte abnormalities, C-reactive protein 1.4, lactic 1.9 Ultrasound right upper extremity: Findings: Accessible right upper extremity deep venous segments are fully compressible with normal Doppler color flow and spectral tracings. IMPRESSION: Negative for right upper extremity deep vein thrombosis. CT humerus: Right side IMPRESSION: Inflammatory changes in the right axillary region extending into the subcutaneous tissue in the medial right humerus which can be seen with cellulitis or possibly lymphedema. No drainable fluid collection. The inflammation in the right axilla appears similar to February 07, 2025. Subsegmental atelectasis/airspace opacities in the right lobe similar to chest CT February 07, 2025. There was some chronicity to the swelling of the right upper extremity, it is a mixed picture of lymphedema with a cellulitis. It looks as if she has been placed on a course of doxycycline in the past, we will repeat. Differential Diagnosis Differential Diagnoses: The differential diagnosis associated with the presentation includes See medical decision-making Admission/Observation Consideration of admission/observation: Escalation of care including admission/observation considered Not applicable Lab Data MDM Lab Attestation statement: I reviewed the patient's lab results. 02/16/25 18:14 02/16/25 18:14 Labs: Lab Results 02/16/25 02/16/25 02/16/25 Range/Units 18:14 22:09 22:09 WBC 3.9 L (4.8-10.8) X10*3/uL RBC 3.07 L (4.20-5.50) X10*6/uL Hgb 10.8 L (12.0-16.0) g/dl Hct 30.4 L (37.0-47.0) % MCV 99.0 H (80.0-98.0) fL MCH 35.2 H (27.0-33.0) pg MCHC 35.5 H (31.0-35.0) g/dl RDW 15.1 (11.0-16.0) % Plt Count 96 L (160-400) X10*3/uL MPV 9.8 (9.4-12.3) fL Immature Gran % (Auto) 0.3 (0.0-0.4) % Neut % (Auto) 68.3 (45-73) % Lymph % (Auto) 15.1 L (20-40) % [place] % (Auto) 13.0 H (2-11) % Eos % (Auto) 2.8 (0-4) % Baso % (Auto) 0.5 (0-2) % Lymph # (Auto) 0.6 L (1.2-4.9) X10*3/uL [place] # (Auto) 0.5 (0.1-1.2) X10*3/uL Eos # (Auto) 0.1 (0.0-0.4) X10*3/uL Baso # (Auto) 0.0 (0.0-0.2) X10*3/uL Abs Immat Gran (auto) 0.01 (0.00-0.03) X10*3/uL Absolute Neuts (auto) 2.7 (2.0-8.3) x10*3/uL Absolute Nucleated RBC 0.000 (0.0-0.012) X10*3/uL Nucleated RBC % (auto) 0.0 (0.0-0.2) /100WBC ESR Cancelled 85 H PT 12.9 (11.2-13.5) SEC INR 1.1 (0.9-1.1) Sodium 137 (135-145) mmol/L Potassium 3.6 (3.3-5.1) mmol/L Chloride 107 (96-108) mmol/L Carbon Dioxide 22 (22-29) mmol/L Anion Gap 12 (12-20) BUN 8 L (9-16) mg/dL Creatinine 0.63 (0.5-1.4) mg/dL Estim Creat Clear Calc 125.8 Estimated GFR > 60 Random Glucose 122 H (60-115) mg/dL Lactic Acid 1.9 (0.5-2.0) mmol/L Calcium 8.8 (8.4-10.2) mg/dL Total Bilirubin 0.7 (0.0-1.0) mg/dL Direct Bilirubin 0.2 (0.0-0.5) mg/dL AST 40 H (5-31) U/L ALT 22 (0-31) U/L Alkaline Phosphatase 66 (39-117) U/L C-Reactive Protein 1.40 H (< or = 0.50) mg/dL Total Protein 7.9 (6.5-8.0) g/dL Albumin 3.7 (3.5-5.0) g/dL Influenza Type A (PCR) NEGATIVE (Negative) Influenza Type B (PCR) NEGATIVE (Negative) RSV RNA Qual (PCR) NEGATIVE (Negative) SARS-CoV-2 RNA (RT-PCR) NEGATIVE (Negative) Radiology Impression Discussion of test interpretation with radiology: I have reviewed the radiologist's reading. Discharge Plan Discharge Clinical Impression: Cellulitis of axilla, right Patient Disposition: Home, Self-Care Instructions: Cellulitis (ED) Additional Instructions: You are being treated for cellulitis. See home care instructions. The ultrasound revealed no clot in the arm. There were no additional acute findings on the CT scan. Continue to follow up with your primary care and your oncologist. Take the doxycycline as directed. Prescriptions: New doxycycline hyclate 100 mg capsule 100 mg PO BID Qty: 19 0RF No Action ondansetron 4 mg tablet,disintegrating 4 mg PO Q8H PRN (Reason: nausea and vomiting) Qty: 20 0RF polyethylene glycol 3350 [Miralax] 17 gram Powder In Packet 17 g PO DAILY PRN (Reason: constipation ) Qty: 30 2RF lidocaine [Lidoderm] 5 % Adhesive Patch,Medicated 1 patch TOPICAL DAILY Qty: 10 2RF Rx Instructions: leave on most painful area for up to 12 hrs naloxone [Narcan] 4 mg/actuation [place],Non-Aerosol 1 spray INTRANASAL Q2M Qty: 2 1RF Rx Instructions: spray 1 dose into ONE nostril; alternate nostrils w each dose until help arrives famotidine [Pepcid] 20 mg Tablet 20 mg PO BEDTIME Qty: 30 3RF tamoxifen 20 mg Tablet 20 mg PO DAILY Qty: 90 1RF cholecalciferol (vitamin D3) [Vitamin D3] 125 mcg (5,000 unit) Tablet 125 mcg PO DAILY Qty: 30 3RF omeprazole 20 mg Capsule,Delayed Release(Dr/Ec) 20 mg PO DAILY Qty: 30 0RF Rx Instructions: Take every morning on empty stomach and wait 30-45 min before you eat or drink. (DME) Prosthesis, breast Kit Qty: 1 3RF Rx Instructions: As Directed (DME) bra, mastectomy Crystals Qty: 6 0RF Rx Instructions: As Directed oxycodone 5 mg Tablet 5 mg PO Q6H PRN (Reason: Pain (Scale Score 7-10)) Qty: 60 0RF Rx Instructions: Partial Fill upon patient request. oxycodone [OxyContin] 30 mg Tablet,Oral Only,Ext.Rel.12 Hr 30 mg PO Q12H Qty: 60 0RF Rx Instructions: Partial Fill upon patient request. doxycycline hyclate 100 mg capsule 100 mg PO BID 10 Days Qty: 20 0RF prednisone 20 mg tablet 40 mg PO DAILY 5 Days Qty: 10 0RF albuterol sulfate 90 mcg/actuation aerosol powdr breath activated 2 inh inhalation Q4-6H PRN (Reason: shortness of breath or wheezing) Qty: 1 0RF loperamide 2 mg capsule 2 mg PO Q4H PRN (Reason: diarrhea) gabapentin 100 mg capsule 100 mg PO BID colestipol 1 gram tablet 2 g PO BID midodrine 5 mg Tablet 2.5 mg PO TID Qty: 30 0RF famotidine 20 mg tablet 20 mg PO BID levothyroxine 112 mcg tablet 112 mcg PO DAILY 30 Days Qty: 30 12RF Print Language: Russian
[2025-02-16 18:24] LABS: MANUAL DIFF FLAG NO
[2025-02-16 18:27] LABS: Hematocrit 30.4 % (37.0-47.0); Hemoglobin 10.8 g/dl (12.0-16.0); Imm Gran Abs Auto 0.01 X10*3/uL (0.00-0.03); Imm Gran Pct Auto 0.3 % (0.0-0.4); Lymphocytes Absolute Auto 0.6 X10*3/uL (1.2-4.9); Mean Corpuscular HGB Conc 35.5 g/dl (31.0-35.0); Mean Corpuscular Hemoglobin 35.2 pg (27.0-33.0); Mean Corpuscular Volume 99.0 fL (80.0-98.0); NRBC Abs Auto 0.000 X10*3/uL (0.0-0.012); NRBC Pct Auto 0.0 /100WBC (0.0-0.2); Red Blood Count 3.07 X10*6/uL (4.20-5.50); White Blood Count 3.9 X10*3/uL (4.8-10.8)
[2025-02-16 18:31] LABS: Platelet Count 96 X10*3/uL (160-400)
[2025-02-16 18:34] LABS: INTERNATIONAL NORM RATIO 1.1 (0.9-1.1); Prothrombin Time 12.9 SEC (11.2-13.5)
[2025-02-16 18:39] LABS: Alanine Aminotransferase 22 U/L (0-31); Albumin Level 3.7 g/dL (3.5-5.0); Alkaline Phosphatase 66 U/L (39-117); Anion Gap 12 (12-20); Aspartate Amino Transferase 40 U/L (5-31); Blood Urea Nitrogen 8 mg/dL (9-16); Calcium 8.8 mg/dL (8.4-10.2); Carbon Dioxide 22 mmol/L (22-29); Chloride 107 mmol/L (96-108); Creatinine Clr Calc Pharmacy 125.8; Estimated Glomerular Filt Rate > 60; Potassium 3.6 mmol/L (3.3-5.1); Sodium 137 mmol/L (135-145); Total Protein 7.9 g/dL (6.5-8.0)
--- OUTSIDE RECORDS SUMMARY | 2025-02-16 18:51 | XMS_ITS | Continuity of Care Document ---
Author Organization MD - [facility], [facility] Address [address] [place] [address] Care Team Providers Care Database Technician Name Role Phone KLAUS MAHARAJ Referring Provider [...] patient to see a voice therapist at [facility] for therapy to address the vocal fold nodules. FOLLOW-UP: The patient will follow up with the voice therapist at [facility] as scheduled. Procedure Documentation: - Anesthesia spray applied to the nose - Nasal endoscopy performed to evaluate nasal passages and vocal cords sirisha Not available 01/10/2025 11:44:41 Plan of Treatment Reminders Order Date Submit Date Provider Last Modified By Organization Details Last Modified Time Details Appointments None recorded. Lab None recorded. Referral speech therapy referral 2024 025 [facility], [address] [place] [address], [id number], 10:02:15 Procedures None recorded. Surgeries None recorded. Imaging None recorded. Medication Orders None recorded. Patient TargetsNo targets recorded. Patient Instructions Encounter Date Encounter Id Patient Instructions Last Modified By Organization Details Last Modified Time 01/10/2025 [id number] nosebleed information sirisha Not available 01/10/2025 11:44:41 - Avoid blowing the nose. - Use saline solution three to four times daily. - Apply [place] Jelly in the nose at night. - Follow up with the voice therapist at [facility]. [email or web address] Not available 01/10/2025 11:42:46 Please note: Parts of this encounter note have been generated by AI based on audio conversation. Patient consent was required prior to utilizing this technology. Content review was required prior to finalizing the note. [email or web address] Not available 01/10/2025 11:42:45 Reason for Referral Referring Physician: Clive camarena, Otolaryngology, Encounter Date: 01/10/2025 Problems Name Problem SNOMED Code Status Onset Date Resolution Date Notes Provider Name and Address Organization Details Recorded Time Primary malignant neoplasm of breast 013855526 Active 025 CLIVE MONROE MD [address] [place] [address], [place], [address], [facility] - [facility] 11:41:31 Bleeding from nose 282944909 Active 025 CLIVE MONROE MD [address] [place] [address], [place], [phone], [facility] - [facility] 11:41:35 Hoarse 51983735 Active 025 CLIVE MONROE MD [address] [place], [place] [address], [address], [facility] - [facility] 11:41:40 Singers' nodes 90902428 Active 025 CLIVE MONROE MD [address] [place], [place] [address], [phone], [facility] 11:41:45 Problem Notes None recorded. Procedures Surgical History Date Name Laterality Status Provider Name and Address Organization Details Recorded Time 01/11/20 25 [id number] completed CLIVE LEVIN MD [address] [facility] [address], [place], [address], [facility] - [facility] 01/10/2025 11:40:58 excision of bilateral breasts completed Aleida Haro [facility] 01/10/2025 11:13:45 appendectomy completed Aleida Haro [place] [facility] 01/10/2025 11:13:51 hernia repair completed Aleida Haro [facility] 01/10/2025 11:13:56 Imaging Results None recorded. [...] Details Last Updated DateTime 01/10/2025 165.1 cm 52739.44 g 104/73 mm[Hg] Aleida Haro [place] - [facility] 01/10/2025 11:19:59 Social History None recorded. Functional Status None recorded. Mental Status None recorded. Family History Nothing Reported. Medical History Condition Response Thyroid Problems Y Depression Y Hyperlipidemia Y Cancer Y Sleep Disorder Y Fibromyalgia Y Gynecological HistoryNo gynecological history recorded. Obstetrics History GPAL:G 0 P 0 0 0 0 Past Encounters Encounter ID Performer Location Encounter Start Date Encounter Closed Date Diagnosis/Indication Diagnosis SNOMED-CT Code Diagnosis ICD10 Code Diagnosis IMO Codes Diagnosis Note [id number] CLIVE HARRISON MD [facility] [address] [address] 01/10/2025 10:44:07 01/10/2025 11:44:53 Primary malignant neoplasm of breast 025538261 C50.911 68771637 Bleeding from nose 81057 6005 R04.0 2558 Hoarse 14198884 R49.0 251359 Singers' nodes 12593823 J38.2 [id number] Health Concerns Section Related Observation LastModified by Organization Detai ls LastModified Time None Recorded Concern Status LastModified by Organization Details LastModified Time None Recorded Payers Encounter Date Sequence Insurance Name Policy Number Policy Rasmussen Covered Member ID Rasmussen Member ID Guarantor Name 01/10/[address] [place] [address] (MEDICAID HMO) [id number] Stefani Mandujano [id number] Stefani Mandujano Notes Date Note Type Note [...] . Her cancer treatments are managed at [facility] by Dr. Jolene Maharaj. An foreign language interpreter was present during the visit to facilitate communication. CLIVE LEVIN MD [address] [place] [address], [place], [address], [facility] - [facility] 01/10/2025 11:45:03 OBGyn Episode No OBEpisode recorded.
--- OUTSIDE RECORDS SUMMARY | 2025-02-16 18:51 | XMS_ITS | Clinical Summary ---
Author Organization [address] [place] [address] Address [address] [place] [address] Phone Care Team Providers Care Sedimentationist Name Role Phone Richar Montano MD Primary Care Provider [phone] Surgical History Surgery Date Site/Laterality Comments APPENDECTOMY [...] Health Screening 08/07/2024 COVID-19 Vaccine ( - 2024-2 6 season) 2024 Influenza Vaccine (#1) 2024 RSV [...] MEDICAID ADVANTAGE MEDICAID - [place] Care Teams Sedimentationist Relationship Specialty Start Date End Date Richar Montano MD [address] [address] PCP - General Internal Medicine 11/09/19
--- OUTSIDE RECORDS SUMMARY | 2025-02-16 18:52 | XMS_ITS | Encounter Summary ---
Author Organization [employer] Address [address] [facility] [address] [place] [address] Care Team Providers Care Data Miner Name Role Phone Unavailable Primary Care Provider Unavailabl e Reason for Visit * Reason Onset Date Comments appt cancer patient 05/09/2024 Encounter Details Date Type Department Care Team (Late st Contact Info) Description 05/09/2024 Telephone [facility] [address] [place], [place] [phone] Jyoti Rojas DDS [address] [place], [place] [phone] appt cancer patient Social History Tobacco Use [...]
--- OUTSIDE RECORDS SUMMARY | 2025-02-16 18:52 | XMS_ITS | Encounter Summary ---
Author Organization [facility], Address [address] [place] [address] Phone Care Team Providers Care Sterile Technician Name Role Phone Theron Richard NP Primary Care Provider [phone] Encounter Details Date Type Department Care Team (Late st Contact Info) Description 07/19/2023 Documentation Only [facility] - [facility] [address] [place] [address] [place] [phone] Liane Luis [address] [place] [phone] Social History Tobacco Use Types Packs/Day [...] on filedocumented in this encounter Care Teams Sterile Technician Relationship Specialty Start Date End Date Theron Richard NP [address] [place] [address] PCP - General Nurse Practitioner 07/12/23 documented as of this encounter
--- OUTSIDE RECORDS SUMMARY | 2025-02-16 18:52 | XMS_ITS | Clinical Summary ---
Author Organization [employer] Address [address] [facility] 7[address] [place] [address] Care Team Providers Care Rib Trim Separator Name Role Phone Unavailable Primary Care Provider [...] 02/03/2010 Mammogram 2020 COVID-19 Vaccine ( - 2024-2 6 season) 2024 Influenza Vaccine (#1) 2024 Zoster [...]
--- OUTSIDE RECORDS SUMMARY | 2025-02-16 18:52 | XMS_ITS | Data Portability ---
Author Organization [place] - [facility], Allergy Address [address] [place] [phone] Care Team Providers Care Cover Assembler Name Role Phone KLAUS MAHARAJ Referring Provider [phone] Assessment Encounter Date Assessment Date Assessment LastModified [...] to see a voice therapist at [facility] for therapy to address the vocal fold nodules. FOLLOW-UP: The patient will follow up with the voice therapist at [facility] as scheduled. Procedure Documentation: - Anesthesia spray applied to the nose - Nasal endoscopy performed to evaluate nasal passages and vocal cords sirisha Not available 01/10/2025 11:44:41 Plan of Treatment Reminders Order Date Submit Date Provider Last Modified By Organization Details Last Modified Time Details Appointments None recorded. Lab None recorded. Referral speech therapy referral 2024 025 [facility], [address] [place] [address], [id number], 10:02:15 Procedures None recorded. Surgeries None recorded. Imaging None recorded. Medication Orders None recorded. Patient TargetsNo targets recorded. Patient Instructions Encounter Date Encounter Id Patient Instructions Last Modified By Organization Details Last Modified Time 01/10/2025 [id number] nosebleed information sirisha Not available 01/10/2025 11:44:41 - Avoid blowing the nose. - Use saline solution three to four times daily. - Apply [place] Jelly in the nose at night. - Follow up with the voice therapist at [facility]. [email or web address] Not available 01/10/2025 11:42:46 Please [...] Recorded Time Primary malignant neoplasm of breast 964446187 Active 025 CLIVE MONROE MD [address] [place] [address], [place], [phone], [facility] - [facility] 11:41:31 Bleeding from nose 547388650 Active 025 CLIVE MONROE MD [address] [place] [address], [place], [phone], [facility] - [facility] 11:41:35 Hoarse 54771975 Active 025 CLIVE MONROE MD [address] [place] [address], [place], [phone], [facility] - [facility] 5 11:41:40 Singers' nodes 73082462 Active 025 CLIVE MONROE MD [address] [place] [address], [place], [phone], [place] - [facility] 11:41:45 Problem Notes None recorded. Procedures Surgical History Date Name Laterality Status Provider Name and Address Organization Details Recorded Time 01/11/20 25 [id number] completed CLIVE LEVIN MD [address] [place] [address], [phone], [place] - [facility] 01/10/2025 11:40:58 excision of bilateral breasts completed Aleida Haro [facility] 01/10/2025 11:13:45 appendectomy completed Aleida Haro [facility] 01/10/2025 11:13:51 hernia repair completed Aleida Haro [facility] 01/10/2025 11:13:56 Imaging Results None recorded. Procedure [...] Details Last Updated DateTime 01/10/2025 165.1 cm 63365.44 g 104/73 mm[Hg] Aleida Haro [place] - [facility] 01/10/2025 11:19:59 Social History None recorded. Functional [...] ICD10 Code Diagnosis IMO Codes Diagnosis Note [id number] CLIVE HARRISON MD [facility] [address] [phone] 01/10/2025 10:44:07 01/10/2025 11:44:53 Primary malignant neoplasm of breast 702192670 C50.911 71672650 Bleeding from nose 74253 6005 R04.0 2558 Hoarse 03515505 R49.0 875192 Singers' nodes 32515101 J38.2 [id number] Health Concerns Section Related Observation LastModified by Organization Detai ls LastModified Time None Recorded Concern Status LastModified by Organization Details LastModified Time None Recorded Advance Directives Directive None Recorded Payers Insurance Date Sequence Insurance Name Policy Number Policy Rasmussen Covered Member ID Rasmussen Member ID Guarantor Name 01/10/2025 1 [facility] (MEDICAID HMO) [id number] Stefani Mandujano [id number] Stefani Mandujano Notes Date Note Type Note [...] Her cancer treatments are managed at [facility] by Dr. Jolene Maharaj. An community cultural development officer was present during the visit to facilitate communication. CLIVE LEVIN MD [address] [place], [place] [address], [place], [address], [facility] - [facility] 01/10/2025 11:45:03 OBGyn Episode No OBEpisode recorded.
--- OUTSIDE RECORDS SUMMARY | 2025-02-16 18:52 | XMS_ITS | Encounter Summary ---
Author Organization [facility] Address [address] [facility] [address] [place] [address] Care Team Providers Care Housekeeping Worker Name Role Phone Unavailable Primary Care [...]
--- OUTSIDE RECORDS SUMMARY | 2025-02-16 18:53 | XMS_ITS | Clinical Summary ---
Author Organization [facility], Address [address] [place] [address] Phone Care Team Providers Care Motor Vehicle Field Representative Name Role Phone Theron Richard PIPE JEEPER Primary Care Provider [phone] Allergies No known active allergies Medications acetaminophen [...] PCV) 02/03/1999 Influenza Vaccine (#1) [address] [place] [address] Medicaid Care Teams Motor Vehicle Field Representative Relationship Specialty Start Date End Date Theron Richard NP [address] [place] PCP - General Nurse Practitioner 07/12/23
[2025-02-16 19:02] LABS: Resp Syncy Virus RNA Qual PCR NEGATIVE (Negative); SARS COV2 PCR INHOUSE NEGATIVE (Negative)
[2025-02-16 19:08] VITALS: BP 110/69; PULSE 92; RESP 14; TEMP 37; O2SAT 98
--- NOTE | 2025-02-16 21:32 | PC.NURSE ---
Mental Health Social Worker and provider at bedside, assessment performed
[2025-02-16 22:17] VITALS: BP 100/65; PULSE 88; RESP 16; TEMP 36.8; O2SAT 96
[2025-02-16] MEDS: iohexoL 350 MG/ML 100 ML INFUS..BTL 85 ML IV (22:26)
[2025-02-16] MEDS: oxyCODONE HCl Immed Release 5 MG TABLET PO (22:34)
[2025-02-16 23:10] LABS: Erythrocyte Sedimentation Rate 85 MM/HR (0-20)
[2025-02-17 00:39] VITALS: BP 100/65; PULSE 88; RESP 16; TEMP 36.8; O2SAT 96
== END 2025-02-17 00:42 | disposition home or self-care (01) ==
PROVIDERS: Nurse Practitioner Family; Physician Assistant Medical; Emergency Provider Emergency Medicine; PCP Nurse Practitioner Family
DX: L03.111 Cellulitis of right axilla (principal); C50.911 Malignant neoplasm of unspecified site of right female breast; C78.00 Secondary malignant neoplasm of unspecified lung; Z90.13 Acquired absence of bilateral breasts and nipples
CPT/HCPCS: 36415; 73201; 80048; 80076; 83605; 85025; 85610; 85652; 86140; 87040; 87637; 93971; 99284; 99285; Q9967

== ENCOUNTER → 2025-02-16 17:42 | Outpatient (BNV) | payer OTHER, SELFPAY | PROVIDERS: PCP Nurse Practitioner Family; Visit Provider Student in an Organized Health Care Education/Training Program | DX: L03.111 Cellulitis of right axilla (principal) | CPT/HCPCS: 73201; 93971 ==

== ENCOUNTER 2025-03-04 09:09 | Outpatient (AMB) | payer OTHER, SELFPAY ==
[2025-03-04 09:41] VITALS: BP 104/54; PULSE 72; BMI 31.0
--- NOTE | 2025-03-04 09:41 | MHC.OFFVIS ---
Vital Signs 03/04/25 09:41 Height 5 ft 6 in Weight 192 lb 2 oz BMI 31.0 BP 104/54 L Blood Pressure Location Lt brachial Position Sitting Pulse 72 Intake Visit Reasons: s/p CT abd pelvis w IV con Intake Note: Patient is seen in office for CT scan results, following for the gallbladder. Pt c/o: no changes since last visit CT:02/08/25 Staff Nurse Icu Resource Team Required: Yes Staff Nurse Icu Resource Team Language: Bmx Rider Services: Staff Nurse Icu Resource Team Present Staff Nurse Icu Resource Team Name: Fawn FORREST Information Interpreted: non-clinical & clinical Investment Trader: Investment Trader Present Accompanied by: Self / Same As Patient Allergies No Known Allergies Allergy (Verified 03/04/25 09:42) Medication List - Last Reconciled 03/04/25 by Anselmo Perkins MD albuterol sulfate 90 mcg/actuation 2 inhalations inhalation Q4-6H PRN cholecalciferol (vitamin D3) (Vitamin D3) 125 mcg PO DAILY colestipol 2 grams PO BID doxycycline hyclate 100 mg PO BID 10 days doxycycline hyclate 100 mg PO BID famotidine (Pepcid) 20 mg PO BEDTIME famotidine 20 mg PO BID gabapentin 100 mg PO BID levothyroxine 112 mcg PO DAILY 30 days lidocaine 5% (Lidoderm) 1 patch topical DAILY loperamide 2 mg PO Q4H PRN mastectomy bra (bra, mastectomy) As Directed midodrine 2.5 mg (1/2 x 5 mg) PO TID naloxone 4 mg/actuation (Narcan) 1 spray intranasal Q2M omeprazole 20 mg PO DAILY ondansetron 4 mg PO Q8H PRN oxycodone 5 mg PO Q6H PRN oxycodone 5 mg PO Q6H PRN oxycodone ER (OxyContin) 30 mg PO Q12H polyethylene glycol 3350 (Miralax) 17 grams PO DAILY PRN prednisone 40 mg (2 x 20 mg) PO DAILY 5 days Prosthesis, breast As Directed tamoxifen 20 mg PO DAILY HPI Comments Details: 44-year-old female patient presenting with complaints of upper abdominal pain especially when rolling or changing positions following a laparoscopic cholecystectomy performed on 09/10/2024. She denies any lumps in the abdominal wall. She has been eating well without nausea or vomiting. Her bowels have been normal as well. She mainly feels the pain in the upper abdomen in his not affected by food. She is concerned that the pain seems to be worsening. She denies fever or chills. Since her last visit she reports only occasional discomfort. She does report some constipation. She denies any nausea or vomiting. [facility] Medical History Amenorrhea Obstructive sleep apnea Metastatic malignant neoplasm to breast Hypothyroidism Surgical History Hx laparoscopic cholecystectomy (09/10/24) Hx of bilateral mastectomy Hx of appendectomy Hx of hernia repair Family History Mother Diabetes Hypertension Father Cancer Social History Household Members: Spouse and Family Housing: Apartment Do you presently have visiting nurse or other home services: No Alcohol intake: former Comment: d/c instructions reviewed with pt with assistance of software engineering manager. Patient Tobacco Use Status: Former Tobacco user Tobacco use type: Cigarette Second Hand Smoke Exposure: No service: No Current occupational status: unemployed Review of Systems Const All systems reviewed & are unremarkable except as noted in HPI and below Physical Exam Exam Exam: Exam deferred. Vital Signs: Last Vital Signs Pulse 72 03/04/25 09:41 BP 104/54 L 03/04/25 09:41 BMI result Body Mass Index 31.0 Assessment & Plan Assessment & Plan (1) Acute calculous cholecystitis: Code(s): K80.00 - Calculus of gallbladder with acute cholecystitis without obstruction Category: Medical Plan 44-year-old female patient status post laparoscopic cholecystectomy on 09/10/2024 now with persistent abdominal pain mainly in the mid abdomen both periumbilical and epigastric. No palpable mass or hernias appreciated. There was no evidence of underlying infection. There is tenderness elicited to deep palpation. She returns today to review the CT abdomen and pelvis. No hernia was identified on CT. There is a small gallbladder fossa fluid collection which appears to be postoperative changes. She does appear to be somewhat full of stool. No other fluid collections or abscess collections could be identified. Images were reviewed the patient. No further surgical intervention is required at this time. She should follow up as needed. Coding Level of Care Code Est Pt Level 3 (18214) Diagnoses Acute calculous cholecystitis K80.00
--- OUTSIDE RECORDS SUMMARY | 2025-03-04 10:41 | XMS_ITS | Clinical Summary ---
Author Organization [facility], Address [address] [place] [address] Phone Care Team Providers Care Centrifugal Station Operator Name Role Phone Theron Richard MANAGER INCOME TAX Primary Care Provider [phone] Allergies No known active allergies Medications acetaminophen [...] PCV) 02/03/1999 Influenza Vaccine (#1) [address] [place] [address] Medicaid Care Teams Centrifugal Station Operator Relationship Specialty Start Date End Date Theron Richard NP [address] [place] MD PCP - General Nurse Practitioner 07/12/23
--- OUTSIDE RECORDS SUMMARY | 2025-03-04 10:41 | XMS_ITS | Clinical Summary ---
Author Organization [employer] Address [address] [facility] [address]t [place] [address] Care Team Providers Care Cinder Block Maker Name Role Phone Unavailable Primary Care Provider [...]
--- OUTSIDE RECORDS SUMMARY | 2025-03-04 10:41 | XMS_ITS | Encounter Summary ---
Author Organization [employer] Address [address] [facility] [address] [place] [address] Care Team Providers Care Garbage Pick Up Man Name Role Phone Unavailable Primary Care Provider Unavailabl e Reason for Visit * Reason Onset Date Comments appt cancer patient 05/09/2024 Encounter Details Date Type Department Care Team (Late st Contact Info) Description 05/09/2024 Telephone [facility] [address], [place] [phone] Jyoti Rojas DDS [address], [place] [phone] appt cancer patient Social History Tobacco Use [...]
--- OUTSIDE RECORDS SUMMARY | 2025-03-04 10:41 | XMS_ITS | Encounter Summary ---
Author Organization [facility], Address [address] [place] [address] Phone Care Team Providers Care Case Management Director Name Role Phone Theron Richard NP Primary Care Provider [phone] Encounter Details Date Type Department Care Team (Late st Contact Info) Description 07/19/2023 Documentation Only [facility] [address] [place] [address] [place] [phone] [address] [place] [phone] Social History Tobacco Use Types Packs/Day [...] on filedocumented in this encounter Care Teams Case Management Director Relationship Specialty Start Date End Date Theron Richard NP [address] [place] [address] PCP - General Nurse Practitioner 07/12/23 documented as of this encounter
--- OUTSIDE RECORDS SUMMARY | 2025-03-04 10:41 | XMS_ITS | Encounter Summary ---
Author Organization [employer] [facility] Address [address] [facility] 7t [place] [address] Care Team Providers Care Funeral Home Director Name Role Phone Unavailable Primary Care Provider [...]
--- OUTSIDE RECORDS SUMMARY | 2025-03-04 10:41 | XMS_ITS | Clinical Summary ---
Author Organization [address] [place] [address] Address [address] [place] [address] Phone Care Team Providers Care Volunteer Specialist Name Role Phone Richar Montano MD Primary Care Provider [phone] Surgical History Surgery Date Site/Laterality Comments APPENDECTOMY PROCEDURE: [place] APPENDECTOMY Social History Tobacco Use Types Packs/Day [...] MEDICAID ADVANTAGE [place] - [place] Care Teams Volunteer Specialist Relationship Specialty Start Date End Date Richar Montano MD [address] [address] PCP - General Internal Medicine 11/09/19
== END 2025-03-04 10:05 | disposition home or self-care (01) ==
LOC: HO.HGS 09:09
PROVIDERS: PCP Nurse Practitioner Family; Visit Provider Surgery
DX: K80.00 Calculus of gallbladder with acute cholecystitis without obstruction (principal)
CPT/HCPCS: 99213

== ENCOUNTER → 2025-03-04 09:09 | Outpatient (BNVA) | payer OTHER, SELFPAY | PROVIDERS: PCP Nurse Practitioner Family; Visit Provider Surgery | DX: K80.00 Calculus of gallbladder with acute cholecystitis without obstruction (principal); Z90.49 Acquired absence of other specified parts of digestive tract | CPT/HCPCS: 99212 ==